=== PATIENT | male | born 1985 | race Caucasian/White ===

== ENCOUNTER 2018-01-30 02:12 | Outpatient (CLI) | payer MEDICAID, SELFPAY ==
--- NOTE | 2018-01-30 14:00 | DI.CT_ITS ---
SYMPTOMS/DIAGNOSIS: RECURRENT SINUSITIS, J32.9; FEVER, UNSPECIFIED CAUSE, R50.9 ; FACIAL PRESSURE, R68.89, RHINORRHEA, J34.[address]: Comparison is made with CT of the neck dated September,, which partially included the sinuses. Again noted is complete opacification of the left maxillary sinus. There is again noted to be absence of a right upper molar tooth with a defect in the floor of the maxillary sinus. The findings do not appear significantly changed, although the amount of swelling seen on the right side of the face has decreased. There is also marked widening or deficiency in the medial wall of the right maxillary sinus with extension of mucus into the nasal cavity. There is minimal mucus retention in the right sphenoid sinus and right ethmoid sinus. The left maxillary sinus and frontal sinuses are unremarkable. The mastoid air cells appear clear. There is no nasal septal deviation. The orbits are unremarkable. IMPRESSION: Continued complete opacification of the right maxillary sinus with extension into the right nasal cavity. There has been no change in a defect at the floor of the right maxillary sinus at the level of the right upper 1st molar tooth.
== END 2018-01-30 02:32 ==
PROVIDERS: PCP Nurse Practitioner Family; Visit Provider Physician Assistant
DX: J32.9 Chronic sinusitis, unspecified (principal); R50.9 Fever, unspecified; J34.89 Other specified disorders of nose and nasal sinuses; J01.00 Acute maxillary sinusitis, unspecified
CPT/HCPCS: 70486

== ENCOUNTER 2018-03-31 00:54 | Outpatient (CLI) | payer MEDICAID, SELFPAY ==
--- NOTE | 2018-03-31 15:14 | DI.MRI_ITS ---
SYMPTOM/DIAGNOSIS: LT SCIATICA, BACK PAIN M54.32 MRI LUMBAR SPINE: Routine noncontrast examination was performed. There are no priors available for comparison. The conus medullaris has a normal appearance and location. At L5-S1 there is no focal disc herniation, central spinal canal or neuroforaminal stenosis present. AT L4-L5 there is a small central disc herniation but no significant central spinal canal stenosis or nerve root impingement results. No neuroforaminal stenosis is seen. L3-L4, L2-L3 and L1-L2 show no focal disc herniation, central spinal canal or neuroforaminal stenosis. Marrow signal is within normal limits IMPRESSION: Small central disc herniation at L4-L5 but no central spinal canal stenosis or nerve root compression results. Otherwise, negative MRI of the lumbar spine.
== END 2018-03-31 01:14 ==
PROVIDERS: PCP Nurse Practitioner Family; Visit Provider Family Medicine
DX: M54.32 Sciatica, left side (principal); M51.16 Intervertebral disc disorders with radiculopathy, lumbar region; M54.5 Low back pain
CPT/HCPCS: 72148

== ENCOUNTER 2018-04-02 15:05 | Emergency (ER) | payer MEDICAID, SELFPAY ==
[2018-04-02 15:14] VITALS: BP 161/140; PULSE 111; RESP 18; TEMP 37; O2SAT 95
--- NOTE | 2018-04-02 15:27 | DI.MRI_ITS ---
SYMPTOM/DIAGNOSIS: KNOWN L 4 DISC HERNIATION ON RT, NOW SIGNS OF HERNIATION ON LT, LOW BACK PAIN SINCE INJURY EARLIER TODAY, INCONTINENCE SINCE INJURY, LT LEG AND ARM SYMPTOMS LUMBOSACRAL SPINE MRI: The examination was carried out according to the usual protocol. There is no evidence of spondylolisthesis. There is no paraspinal or intraosseous lesion. The lower dorsal cord, conus and filum terminale are intact. At L 1-2, there is mild facet joint arthropathy with no disc herniation or stenosis. At L 2-3, there is minimal facet joint arthropathy with no disc herniation or stenosis. At L 3-4, there is a 1 mm. disc bulge with mild facet joint arthropathy. There is minimal central spinal stenosis with an AP diameter of 10 mm. At L 4-5, there is a 2-3 mm. disc protrusion centrally, just to the right of midline. There is minimal thecal compression with minimal central stenosis (10 mm. is the AP diameter at this site). There is minimal facet joint arthropathy and no neural foraminal stenosis. At L 5-S 1, there is a 1 mm. central disc bulge with no central or neural foraminal stenosis. SUMMARY: At L 4-5, there is a 2-3 mm. disc protrusion centered just to the right of midline. There is minimal thecal compression with minimal central stenosis (10 mm. AP canal diameter). There is minimal facet joint arthropathy. No neural foraminal stenosis is evident. Additional findings as noted above.
[2018-04-02] MEDS: HYDROmorphone 2 MG/ML VIAL 1 MG IM (15:38)
--- NOTE | 2018-04-02 16:56 | DI.VRAD_ITS ---
EXAM: MR Lumbar Spine Without Intravenous Contrast. EXAM DATE/TIME: 04/02/2018 4:36 PM CLINICAL HISTORY: 32 years old, male; Pain and injury or trauma; Injury history: Lifting injury today. ; Initial encounter; Blunt trauma (contusions or hematomas); Low back pain; Injury date: 04/02/18; Injury details: Severe lumbar back pain, with pain radiating to left leg, and left arm. Incontinence since injury at 1300 today. ; Patient HX: Known l4 disk herniation. TECHNIQUE: Multiplanar magnetic resonance images of the lumbar spine without intravenous contrast. . Exam is focused on the lumbar spine. COMPARISON: MR lumbar spine wo 03/31/2018 4:19 PM FINDINGS: Vertebrae: No spondylolisthesis. The conus region appears normal. No paraspinal or intrasinus lesions are seen. Spinal cord: See Vertebrae Finding. Discs/Spinal canal/Neural foramina: L1-L2: There is mild facet arthropathy with no disc herniation or stenosis. L2-L3: There is minimal facet arthropathy with no disc herniation or stenosis. L3-L4: There is a 1 mm disc bulge with mild facet arthropathy. There is minimal central stenosis with a 10 mm AP canal diameter. L4-L5: There is a 2-3 mm disc protrusion centered just right of midline. There is minimal thecal compression with minimal central stenosis (10 mm AP canal diameter). There is minimal facet arthropathy with no neuroforaminal stenosis. L5-S1: There is a 1 mm central disc bulge with no central or neuroforaminal stenosis. Soft tissues: See Vertebrae Finding. IMPRESSION: L4-L5: There is a 2-3 mm disc protrusion centered just right of midline. There is minimal thecal compression with minimal central stenosis (10 mm AP canal diameter). There is minimal facet arthropathy with no neuroforaminal stenosis. Additional more mild and disc abnormalities as detailed on a level by level basis the report above. Dictated and Authenticated by: Rudi Diallo MD. Ordering:TANIA ABEBE MD
--- NOTE | 2018-04-02 17:08 | W.ED.GENAD ---
Discharge Plan Disposition Patient Disposition: [facility] Condition: Critical Discharge Details Chief Complaint: Nk/Back Pain Clinical Impression: Cauda equina syndrome Reason For Visit: back pain / incontinance Primary Care Provider: Kaylie Whipple ED Provider: Chris Briseno Home Meds and New Rx's Prescriptions: No Action baclofen 10 mg Tablet TID RF: 0 gabapentin 300 MG capsule 600 mg PO TID RF: 0 sucralfate 1 GM tablet 1 gm PO AC & HS Qty: 120 RF: 0 omeprazole 40 MG capsule,delayed release(DR/EC) 40 mg PO BID Qty: 60 RF: 0 Discharge Data Discharge Date/Time-TO BE ENTERED AT DEPARTURE: 04/02/18 17:26 Medical Decision Making This is a 32-year-old male with a known mild disc herniation at L4-L5, who presents with bowel and bladder incontinence, saddle anesthesia on the right, weakness in his right lower extremity, and decreased rectal tone with active micturition and defecation without him controlling. It occurred as soon as he started lifting a 2-300 pounds snowplow earlier today. Physical exam findings were concerning for cauda equina and cord compression syndrome. He was immediately sent to MRI for further evaluation, however because of the clinical component of my exam with a tight and concern for this condition we did contact [facility] immediately and discussed the case with neurosurgery and the emergency physician, Dr. Farias and Dr. Piedra respectively. We discussed and reviewed the findings on physical exam, and they recommended immediate transfer to [facility] emergency department for further evaluation. We will push the images as soon as they come through. I have extensively reviewed the treatment plan with the patient. I have addressed all patient concerns at this time. I have also discussed the plan with the admitting physician and they agree with the current assessment and plan and have agreed to assume responsibility for the patient. All parties demonstrate verbal understanding and agreement with our assessment and plan at this time. Patient will be transferred via calyx. As the patient was being wheeled out the door the imaging results for the MRI did return, which does show mild compression on the thecal sac with a disc bulge. Obviously the patient's symptoms are overly concerning, and the treatment plan will be unchanged. Patient is being sent by cal at this time to [facility]. FINDINGS: Vertebrae: No spondylolisthesis. The conus region appears normal. No paraspinal or intrasinus lesions are seen. Spinal cord: See Vertebrae Finding. Discs/Spinal canal/Neural foramina: L1-L2: There is mild facet arthropathy with no disc herniation or stenosis. L2-L3: There is minimal facet arthropathy with no disc herniation or stenosis. L3-L4: There is a 1 mm disc bulge with mild facet arthropathy. There is minimal central stenosis with a 10 mm AP canal diameter. L4-L5: There is a 2-3 mm disc protrusion centered just right of midline. There is minimal thecal compression with minimal central stenosis (10 mm AP canal diameter). There is minimal facet arthropathy with no neuroforaminal stenosis. L5-S1: There is a 1 mm central disc bulge with no central or neuroforaminal stenosis. Soft tissues: See Vertebrae Finding. IMPRESSION: L4-L5: There is a 2-3 mm disc protrusion centered just right of midline. There is minimal thecal compression with minimal central stenosis (10 mm AP canal diameter). There is minimal facet arthropathy with no neuroforaminal stenosis. Additional more mild and disc abnormalities as detailed on a level by level basis the report above. Dictated and Authenticated by: Rudi Diallo MD. HPI General Date/Time Provider Initiated Documentation: 04/02/18 15:23. HPI Narrative: This is a 32-year-old male with no significant past medical history except for back pain for which she has a known mild disc herniation at the L4-L5 region, he was scheduled for follow-up with the pain clinic, he had his most recent MRI 2 days ago which show these findings. Less than 4 hours ago the patient was trying to lift a 200-300 pound snowplow when he suddenly noted pain in his back and bowel and bladder incontinence including weakness in his right extremity as well as an inability to move his leg as he normally would. Since then the patient has had multiple episodes of bowel and bladder incontinence and came to the ER for further evaluation. States that his back pain is in the lower region, is worse than normal, he has no aggravating or relieving factors aside from movement which does cause aggravation. He denies any history of bowel or bladder incontinence in the past. He denies any history of IV or illicit drug use, recent fevers, or other traumas. He has no other complaints at this time. He denies any previous back surgeries per Related Data Home Medications Medication Instructions Recorded Confirmed gabapentin 600 mg PO TID 09/27/17 04/02/18 omeprazole 40 mg PO BID #60 capcr 10/17/17 12/08/17 sucralfate 1 gm PO AC & HS #120 tab 10/17/17 12/08/17 baclofen TID 04/02/18 Previous Rx's Medication Instructions Recorded omeprazole 40 mg PO BID #60 capcr 10/17/17 sucralfate 1 gm PO AC & HS #120 tab 10/17/17 Allergies Allergy/AdvReac Type Severity Reaction Status Date / Time No Known Allergies Allergy Unverified 04/02/18 17:08 General Stated Complaint: Nk/Back Pain FALGUNI: 2 Review of Systems Review of Systems All systems reviewed & are unremarkable except as noted in HPI and below PFSH Social History Smoking/Tobacco Use Status: Current every day Surgical History EGD - MAC (10/16/17) Exam Narrative Exam Narrative: 1.Const: Well-nourished, Well-developed, appearing stated age 2.Eyes: PERRL, no conjunctival injection, and symmetrical lids. 3.ENT: Atraumatic external nose and ears. Moist MM. Neck: Symmetric, trachea midline, No thyromegaly. 4.CVS: +S1/S2, No murmurs or gallops. Peripheral pulses 2+ and equal in all extremities. Brisk capillary refill in all extremities. 5.RESP: Unlabored respiratory effort. Clear to auscultation bilaterally. No wheezes rales or rhonchi 6.GI: Soft, Nontender/Nondistended, No hepatosplenomegaly. No guarding or rebound. 7.MSK: Normocephalic/Atraumatic, Extremities w/o deformity or ttp No cyanosis or clubbing, Normal movement of all extremities 8.Skin: Warm, Dry. No rashes or lesions. 9.Neuro: jewelry mechanic II-XII grossly intact. Sensation grossly intact, no focal neurologic deficits. Patient demonstrates midline lower lumbar spine pain. Neurologic exam demonstrates weakness in his right lower extremity, he has 3-4 out of 5 strength on the right, and a notable 5 out of 5 strength on the left. He has completely absent sensation on the saddle region on the right-hand side, there was removed from his medial thigh without any knowledge of the event. Rectal tone is notably decreased, he is actively urinating and having bowel movements in front of me in spite of his best efforts to control it. Unable to assess patellar reflexes bilaterally. Decreased sensation around the anus itself in all circumferential areas. Patient does have some mild sensation that is present on the left-hand side of his anus, and complete sensation for his left lower extremity. Upper extremity exam demonstrates no significant abnormalities. 10.Psych: (AAO) x3. Appropriate mood and affect Course Vital Signs Temperature 37.0 C 04/02/18 15:14 Pulse 111 H 04/02/18 15:14 Respiratory Rate 18 04/02/18 15:14 Blood Pressure 161/140 H 04/02/18 15:14 Pulse Oximetry 95 04/02/18 15:14 Temperature 37.0 C 04/02/18 15:14 Temperature Source Temporal Artery Scan 04/02/18 15:14 Pulse 111 H 04/02/18 15:14 Respiratory Rate 18 04/02/18 15:14 Blood Pressure 161/140 H 04/02/18 15:14 Pulse Oximetry 95 04/02/18 15:14 Oxygen Delivery Method Room Air 04/02/18 15:14 Oxygen Flow Rate 0 04/02/18 15:14
[2018-04-02] MEDS: HYDROmorphone 2 MG/ML VIAL 1 MG IVP (17:13)
--- NOTE | 2018-04-02 17:13 | ED.GENADUL_ITS ---
Discharge Plan Disposition Patient Disposition: [facility] Condition: Critical Discharge Details Chief Complaint: Nk/Back Pain Clinical Impression: Cauda equina syndrome Reason For Visit: back pain / incontinance Primary Care Provider: Kaylie Whipple ED Provider: Chris Briseno Home Meds and New Rx's Prescriptions: No Action baclofen 10 mg Tablet TID RF: 0 gabapentin 300 MG capsule 600 mg PO TID RF: 0 sucralfate 1 GM tablet 1 gm PO AC & HS Qty: 120 RF: 0 omeprazole 40 MG capsule,delayed release(DR/EC) 40 mg PO BID Qty: 60 RF: 0 Discharge Data Discharge Date/Time-TO BE ENTERED AT DEPARTURE: 04/02/18 17:26 Medical Decision Making This is a 32-year-old male with a known mild disc herniation at L4-L5 , who presents with bowel and bladder incontinence, saddle anesthesia on the right, weakness in his right lower extremity, and decreased rectal tone with active micturition and defecation without him controlling. It occurred as soon as he started lifting a 2-300 pounds snowplow earlier today. Physical exam findings were concerning for cauda equina and cord compression syndrome. He was immediately sent to MRI for further evaluation, however because of the clinical component of my exam with a tight and concern for this condition we did contact [facility] immediately and discussed the case with neurosurgery and the emergency physician, Dr. Farias and Dr. Piedra respectively. We discussed and reviewed the findings on physical exam, and they recommended immediate transfer to [facility] emergency department for further evaluation. We will push the images as soon as they come through. I have extensively reviewed the treatment plan with the patient. I have addressed all patient concerns at this time. I have also discussed the plan with the admitting physician and they agree with the current assessment and plan and have agreed to assume responsibility for the patient. All parties demonstrate verbal understanding and agreement with our assessment and plan at this time. Patient will be transferred via calyx. As the patient was being wheeled out the door the imaging results for the MRI did return, which does show mild compression on the thecal sac with a disc bulge. Obviously the patient's symptoms are overly concerning, and the treatment plan will be unchanged. Patient is being sent by cal at this time to [facility]. FINDINGS: Vertebrae: No spondylolisthesis. The conus region appears normal. No paraspinal or intrasinus lesions are seen. Spinal cord: See Vertebrae Finding. Discs/Spinal canal/Neural foramina: L1-L2: There is mild facet arthropathy with no disc herniation or stenosis. L2-L3: There is minimal facet arthropathy with no disc herniation or stenosis. L3-L4: There is a 1 mm disc bulge with mild facet arthropathy. There is minimal central stenosis with a 10 mm AP canal diameter. L4-L5: There is a 2-3 mm disc protrusion centered just right of midline. There is minimal thecal compression with minimal central stenosis (10 mm AP canal diameter). There is minimal facet arthropathy with no neuroforaminal stenosis. L5-S1: There is a 1 mm central disc bulge with no central or neuroforaminal stenosis. Soft tissues: See Vertebrae Finding. IMPRESSION: L4-L5: There is a 2-3 mm disc protrusion centered just right of midline. There is minimal thecal compression with minimal central stenosis (10 mm AP canal diameter). There is minimal facet arthropathy with no neuroforaminal stenosis. Additional more mild and disc abnormalities as detailed on a level by level basis the report above. Dictated and Authenticated by: Rudi Diallo MD. HPI General Date/Time Provider Initiated Documentation: 04/02/18 15:23 . HPI Narrative: This is a 32-year-old male with no significant past medical history except for back pain for which she has a known mild disc herniation at the L4-L5 region, he was scheduled for follow-up with the pain clinic, he had his most recent MRI 2 days ago which show these findings. Less than 4 hours ago the patient was trying to lift a 200-300 pound snowplow when he suddenly noted pain in his back and bowel and bladder incontinence including weakness in his right extremity as well as an inability to move his leg as he normally would. Since then the patient has had multiple episodes of bowel and bladder incontinence and came to the ER for further evaluation. States that his back pain is in the lower region, is worse than normal, he has no aggravating or relieving factors aside from movement which does cause aggravation. He denies any history of bowel or bladder incontinence in the past. He denies any history of IV or illicit drug use, recent fevers, or other traumas. He has no other complaints at this time. He denies any previous back surgeries per Related Data Home Medications Medication Instructions Recorded Confirmed gabapentin 600 mg PO TID 09/27/17 04/02/18 omeprazole 40 mg PO BID #60 capcr 10/17/17 12/08/17 sucralfate 1 gm PO AC & HS #120 tab 10/17/17 12/08/17 baclofen TID 04/02/18 Previous Rx's Medication Instructions Recorded omeprazole 40 mg PO BID #60 capcr 10/17/17 sucralfate 1 gm PO AC & HS #120 tab 10/17/17 Allergies Allergy/AdvReac Type Severity Reaction Status Date / Time No Known Allergies Allergy Unverified 04/02/18 17:08 General Stated Complaint: Nk/Back Pain FALGUNI: 2 Review of Systems Review of Systems All systems reviewed & are unremarkable except as noted in HPI and below PFSH Social History Smoking/Tobacco Use Status: Current every day Surgical History EGD - MAC (10/16/17) Exam Narrative Exam Narrative: 1.Const: Well-nourished, Well-developed, appearing stated age 2.Eyes: PERRL, no conjunctival injection, and symmetrical lids. 3.ENT: Atraumatic external nose and ears. Moist MM. Neck: Symmetric, trachea midline, No thyromegaly. 4.CVS: +S1/S2, No murmurs or gallops. Peripheral pulses 2+ and equal in all extremities. Brisk capillary refill in all extremities. 5.RESP: Unlabored respiratory effort. Clear to auscultation bilaterally. No wheezes rales or rhonchi 6.GI: Soft, Nontender/Nondistended, No hepatosplenomegaly. No guarding or rebound. 7.MSK: Normocephalic/Atraumatic, Extremities w/o deformity or ttp No cyanosis or clubbing, Normal movement of all extremities 8.Skin: Warm, Dry. No rashes or lesions. 9.Neuro: medical engineer II-XII grossly intact. Sensation grossly intact, no focal neurologic deficits. Patient demonstrates midline lower lumbar spine pain. Neurologic exam demonstrates weakness in his right lower extremity, he has 3-4 out of 5 strength on the right, and a notable 5 out of 5 strength on the left. He has completely absent sensation on the saddle region on the right-hand side, there was removed from his medial thigh without any knowledge of the event. Rectal tone is notably decreased, he is actively urinating and having bowel movements in front of me in spite of his best efforts to control it. Unable to assess patellar reflexes bilaterally. Decreased sensation around the anus itself in all circumferential areas. Patient does have some mild sensation that is present on the left-hand side of his anus, and complete sensation for his left lower extremity. Upper extremity exam demonstrates no significant abnormalities. 10.Psych: (AAO) x3. Appropriate mood and affect Course Vital Signs Temperature 37.0 C 04/02/18 15:14 Pulse 111 H 04/02/18 15:14 Respiratory Rate 18 04/02/18 15:14 Blood Pressure 161/140 H 04/02/18 15:14 Pulse Oximetry 95 04/02/18 15:14 Temperature 37.0 C 04/02/18 15:14 Temperature Source Temporal Artery Scan 04/02/18 15:14 Pulse 111 H 04/02/18 15:14 Respiratory Rate 18 04/02/18 15:14 Blood Pressure 161/140 H 04/02/18 15:14 Pulse Oximetry 95 04/02/18 15:14 Oxygen Delivery Method Room Air 04/02/18 15:14 Oxygen Flow Rate 0 04/02/18 15:14
[2018-04-02 17:29] VITALS: BP 158/88; PULSE 92; RESP 20; TEMP 36.8; O2SAT 98
== END 2018-04-02 17:26 | disposition short-term general hospital (02) ==
PROVIDERS: Emergency Provider Student in an Organized Health Care Education/Training Program; PCP Nurse Practitioner Family
DX: G83.4 Cauda equina syndrome (principal); R15.9 Full incontinence of feces; N39.42 Incontinence without sensory awareness; X50.0XXA Overexertion from strenuous movement or load, initial encounter
CPT/HCPCS: 80053; 96372; 96374; 99285; 72148; 85025

== ENCOUNTER 2018-05-13 08:50 | Outpatient (CLI) | payer MEDICAID, SELFPAY ==
--- NOTE | 2018-05-13 06:00 | DI.RAD_ITS ---
SYMPTOM/DIAGNOSIS: LUMBAR RADICULOPATHY PAIN CLINIC: Fluoroscopy Time: 29.2 seconds/25.29 mGy Images submitted from the Pain Clinic demonstrate needle placement over the right paramedian position at the level of L4 in conjunction with an epidural steroid injection. Please see Dr. Rainey's procedure report for further information.
[2018-05-13 09:17] VITALS: BP 149/89; PULSE 74; RESP 18; TEMP 36.6; O2SAT 99
--- NOTE | 2018-05-13 09:49 | PDOC.PAIN_ITS ---
Pain Clinic Procedure Note Current Active Problems Problem Status Onset Lumbar radicular syndrome Acute LUMBAR / SACRAL TRANSFORAMINAL INJECTION SWATHI GARCIA has been [facility] for a transforaminal nerve root block and steroid injection. COMMENTS: I reviewed the note from Ms. Magallanes dated 05/01/18 and lumbar spine MRI from 04/02/18. DX: Lumbosacral radiculopathy Patient was interviewed and the medical record reviewed. There were no medical, pharmacologic, radiographic or other structural contraindications to attempting fluoroscopically guided transforaminal nerve root block and epidural steroid injection. Risks and expected side effects as well as potential benefit of the procedure were reviewed and voiced concerns addressed. The printed consent form was signed and witnessed. Standard time-out procedure was performed. Patient was placed in the prone position on the fluoroscopy table and automated blood pressure cuff and pulse oximeter applied. Fluoroscopy was utilized to identify the left L4-L5 neural foramen between L4 and L5. A skin latisha was made for the needle insertion site. A Chlorhexadine prep was carried out, and sterile drapes were applied. Local anesthesia was achieved in the skin and subcutaneous tissues. A 22 gauge curved tip spinal needle was then inserted, advanced with fluoroscopic guidance into the neural foramen, confirmed on the lateral view. After negative aspiration, 2 ml of Omnipaque 240 was injected confirming position in A/P and lateral views. This showed a good spread of dye transforaminally into the epidural space. There was no vascular update with contrast injection under continuous fluoroscopy and digital substraction. 10 mg of Dexamethasone was injected, followed by 0.5 ml of 1% Xylocaine flush for the nerve root block, as well. There was no unusual discomfort expressed.The needle was withdrawn. The patient tolerated the procedure well. A Band-Aid was applied. Vital signs were stable throughout the procedure and were as recorded in nursing records. If given, dosages of intravenous drugs for anxiolysis and analgesia were documented in nursing records. Follow up plans and appointments were discussed. Post procedure instruction was given as documented in nursing records and patient was discharged in the care of an identified rolloff truck driver. COMMENTS: This procedure can be completed up to 3 times per 12 months if it is found helpful. Post-procedure pain score is 4/10. CC: Kaylie Whipple
[2018-05-13 09:54] VITALS: BP 157/88; PULSE 74; RESP 18; O2SAT 98
[2018-05-13] MEDS: Omnipaque 240 MG/ML 50 ML BTL IJ (09:56)
[2018-05-13] MEDS: Dexamethasone Sod. Phos./Pres-Free 10 MG/ML VIAL IJ (09:56)
== END 2018-05-13 09:10 ==
PROVIDERS: PCP Nurse Practitioner Family; Visit Provider Preventive Medicine Occupational Medicine
DX: M54.16 Radiculopathy, lumbar region (principal)
CPT/HCPCS: 64483; 72100; Q9967

== ENCOUNTER 2018-06-05 09:51 | Outpatient (REF) | payer MEDICAID, SELFPAY ==
[2018-06-05 10:14] LABS: Abs Immature Grans 0.07 k/cumm (0.0-0.09); Absolute Basophil Count 0.04 k/cumm (0.0-0.2); Absolute Eosinophil Count 0.37 k/cumm (0.0-0.7); Absolute Lymphocyte Count 3.04 k/cumm (1.2-3.4); Absolute Monocyte Count 0.93 k/cumm (0.11-0.7); Absolute Neutrophil Count 4.39 k/cumm (1.2-6.7); Basophils % 0.5; Eosinophils % 4.2; HCT 46.8 % (40.0-50.0); HGB 16.1 g/dL (13.5-17.5); Immature Grans % 0.8; Lymphocytes % 34.4; Mean Corp. HGB Concentration 34.4 g/dL (32.0-36.0); Mean Corpuscular Hemoglobin 31.8 pg (27.0-33.0); Mean Corpuscular Volume 92.3 fL (80-95); Mean Platelet Volume 10.3 fL (8.0-11.0); Monocytes % 10.5; Neutrophils % 49.6; Platelet Count 226 x1000/uL (130-400); RBC 5.07 m/cumm (4.50-6.00); RBC Distribution Width 13.5 % (11.8-14.1); White Blood Cell Count 8.84 k/cumm (4.4-10.8)
[2018-06-05 10:42] LABS: ALT 84 U/L (12-78); AST 32 U/L (15-37); Alkaline Phosphatase 71 U/L (46-116); Anion Gap 11.8 mmol/L (3-11); BUN 19 mg/dL (7-18); Bilirubin, Total 0.4 mg/dL (0.2-1.0); CO2 27.2 mmol/L (21.0-32.0); CREATININE 1.06 mg/dL (0.70-1.30); Calcium 9.8 mg/dL (8.5-10.1); Chloride 102 mmol/L (98-107); Glucose 98 mg/dL (70-100); Potassium 4.3 mmol/L (3.5-5.1); Sodium 141 mmol/L (136-145); Total Protein 7.4 g/dL (6.4-8.2)
== END 2018-06-05 10:11 ==
LOC: NCHCN 09:51
PROVIDERS: PCP Nurse Practitioner Family; Visit Provider Nurse Practitioner Family
DX: R10.31 Right lower quadrant pain (principal); R11.2 Nausea with vomiting, unspecified; R19.7 Diarrhea, unspecified; R50.9 Fever, unspecified
CPT/HCPCS: 80053; 85025

== ENCOUNTER 2018-06-05 10:38 | Outpatient (CLI) | payer MEDICAID, SELFPAY ==
--- NOTE | 2018-06-05 10:29 | DI.CT_ITS ---
SYMPTOMS/DIAGNOSIS: ABDOMINAL PAIN, RIGHT LOWER QUADRANT, NAUSEA, R10.31, R11.2, R19.7, R50.9 CT OF THE ABDOMEN AND PELVIS: Comparison is made with November,. Images were performed from the lung bases through the ischial tuberosities after IV and oral contrast. The exam is somewhat limited by the patient's body habitus. There is increased image noise due to dose reduction technique. The appendix appears normal. There is no abnormal bowel dilatation. Diverticulosis is seen in the descending and sigmoid colon. There is no evidence of inflammatory change. The lung bases are clear. The liver shows fatty infiltration. No abnormal gallbladder distention or biliary dilatation is seen. The spleen, pancreas, adrenals and kidneys are unremarkable. The bladder is not well distended. The prostate is normal in size. IMPRESSION: Diverticulosis. No evidence of diverticulitis or other acute abnormality.
[2018-06-05] MEDS: Omnipaque 350 MG/ML 50 ML BTL IJ (10:44)
[2018-06-05] MEDS: Omnipaque 350 MG/ML 100 ML BTL IJ (12:21)
== END 2018-06-05 10:58 ==
PROVIDERS: PCP Nurse Practitioner Family; Visit Provider Family Medicine
DX: K57.30 Diverticulosis of large intestine without perforation or abscess without bleeding (principal); R10.31 Right lower quadrant pain; R11.2 Nausea with vomiting, unspecified; R19.7 Diarrhea, unspecified; R50.9 Fever, unspecified
CPT/HCPCS: 74177; J3490; Q9967

== ENCOUNTER 2018-07-10 06:44 | Emergency (ER) | payer MEDICAID, SELFPAY ==
[2018-07-10] VITALS (17 sets, daily range): BP systolic 117–145; BP diastolic 48–77; PULSE 80–107; RESP 18–24; TEMP 37.4; O2SAT 79–95
--- NOTE | 2018-07-10 06:47 | DI.CT_ITS ---
SYMPTOM/DIAGNOSIS: INTOXICATED, FELL DOWN STAIRS CERVICAL SPINE CT: CT examination of the cervical spine was performed with multi slice acquisition and multi planar reconstruction. The lung apices are clear and tracheal laryngeal structures appear intact. There is no evidence of acute cervical fracture or dislocation. Prevertebral soft tissues appear intact. CONCLUSION: No evidence of acute cervical spine injury. CRANIAL CT (WITHOUT CONTRAST): A noncontrast cranial CT was performed. The ventricular system is normal in appearance. There is no evidence of an intracranial mass lesion. There is no evidence of a subdural or epidural hematoma. No focal areas of decreased attenuation are seen. CONCLUSION: Normal noncontrast Cranial CT. CHEST/ABDOMEN AND PELVIC CT: CT examination of the chest, abdomen and pelvis was performed with a bolus infusion of 100 cc's of Omnipaque 350. No bony injury of the thorax identified. No vascular injury in the thorax. No pulmonary contusion, pleural effusion or pneumothorax. Tracheobronchial tree appears intact. There is hepatic steatosis. Otherwise liver, spleen, pancreas and biliary system appear intact. Adrenals and kidneys are normal. No evidence of abdominal aortic injury or other major vascular abnormality. No abdominal wall hernia is seen. No abdominal or pelvic adenopathy. No evidence of bowel injury or bowel obstruction. Normal appearance of the appendix. No evidence of diverticulitis. CONCLUSION: No evidence of acute injury of the chest, abdomen or pelvis.
--- NOTE | 2018-07-10 06:49 | W.ED.GENAD ---
Discharge Plan Disposition Patient Disposition: HOME Condition: Stable Discharge Details Chief Complaint: AMS/LOC Clinical Impression: Acute alcohol intoxication, Fall Reason For Visit: [facility] Primary Care Provider: Kaylie Whipple ED Provider: Higinio Rawls Home Meds and New Rx's Prescriptions: No Action fluticasone [Flonase Allergy Relief] 50 mcg/actuation spray,suspension 2 spray PRISCILA DAILY RF: 0 gabapentin 300 mg capsule 600 mg PO TID RF: 0 omeprazole 40 MG capsule,delayed release(DR/EC) 40 mg PO BID Qty: 60 RF: 0 Discharge Instructions Instructions: Abuse of Alcohol (ED) Additional Instructions: if you decide you would like assistance with your [facility] Referrals: [facility] [Provider Group] Medical Decision Making <Bert Lombardi MD - Last Filed: 07/10/18 07:44> 33-year-old male states he was drinking a large amount of alcohol throughout the night last night and did take it additional Flexeril. He was trying to go to bed when he slipped and fell down 3-4 stairs. He complains of back pain. Believes he did not lose consciousness. He arrives to the ER in no acute distress but with odor of alcohol present. Tender in his posterior thoracic cage. Differential diagnosis includes bony or visceral injury. Due to his intoxication he is referred for CT imaging. As it is change of shift, patient to be signed out to Dr Rawls pending review of diagnostics. <Higinio Rawls MD - Last Filed: 07/10/18 09:06> Medical Records Medical records reviewed: Yes I reviewed the patient's medical records. Imaging Data Radiologic Study: Attestation: I personally reviewed and interpreted this imaging study as follows: Imaging: CT Scan Radiologist's impression: no acute findings on ct head, c spine, chest, abdomne and pelvis, has fatty liver Lab Data Lab results reviewed: Yes I reviewed the patient's lab results. HPI <Bert Lombardi MD - Last Filed: 07/10/18 07:44> General Mode of arrival: EMS. Date/Time Provider Initiated Documentation: 07/10/18 06:47. Limitations to Documentation: no limitations. Information obtained by: patient and EMS. History of Present Illness 33 year old M presents to the emergency department with the chief complaint of 33-year-old male who was intoxicated at home tripped and fell down 3 stairs, Quality is described as dull, and is localized to the back. Patient reports no radiation. Patient started experiencing this minute(s) and it has been constant. No relieving factors improve symptom(s), No exacerbating factors reported . Patient notes no other symptoms.. Patient did receive the following treatments prior to arrival, none Related Data Home Medications Medication Instructions Recorded Confirmed omeprazole 40 mg PO BID #60 capcr 10/17/17 07/10/18 fluticasone 50 mcg/actuation nasal 2 spray PRISCILA DAILY 04/11/18 07/10/18 spray,suspension gabapentin 300 mg capsule 600 mg PO TID cap 04/11/18 07/10/18 Previous Rx's Medication Instructions Recorded omeprazole 40 mg PO BID #60 capcr 10/17/17 Allergies Allergy/AdvReac Type Severity Reaction Status Date / Time tramadol Allergy Intermediate hives Unverified 07/10/18 06:56 General FALGUNI: 2 Review of Systems <Bert Lombardi MD - Last Filed: 07/10/18 07:44> Review of Systems 8 systems reviewed and otherwise - [facility] <Bert Lombardi MD - Last Filed: 07/10/18 07:44> Medical History Abdominal pain, right upper quadrant (Acute) Fistula (Acute) Nasal lesion (Acute) Alcohol abuse (Chronic) Chronic low back pain (Chronic) Cigarette nicotine dependence (Chronic) Crohns disease (Chronic) Depression with anxiety (Chronic) GERD (gastroesophageal reflux disease) (Chronic) Generalized anxiety disorder (Chronic) HTN (hypertension) (Chronic) Hyperlipidemia (Chronic) Left sided sciatica (Chronic) Morbid obesity (Chronic) DARREL (obstructive sleep apnea) (Chronic) Paresthesia (Chronic) Rheumatoid arthritis with rheumatoid factor of multiple sites without organ or systems involvement (Chronic) Surgical History H/O: knee surgery (Acute) S/P arthroscopy of left shoulder (Acute) Status post hip surgery (Acute) EGD - MAC (10/16/17) Social History housing: apartment lives independently: Yes (significant other helps get lower extremity dressing done.) number of children: 4 current occupational status: unemployed current occupation: [employer] what type of physical activity do you participate in: none Smoking and Tabacco status: Former Tobacco Use alcohol intake: current alcohol intake frequency: holidays/special occasions only substance use type: marijuana Exam <Bert Lombardi MD - Last Filed: 07/10/18 07:44> Narrative Exam Narrative: GEN: awake, alert, oriented 3. Pleasant, well groomed, interactive. HEAD: Normocephalic, atraumatic ENT: Mucous membranes moist, oropharynx unremarkable, External ear exam unremarkable EYES: PERRL, EOMI NECK: Full ROM, no KAREL, no menigismus CHEST/RESP: Nontender, clear to auscultation bilateral, no wheeze/rhonchi/rales CARDIOVASCULAR: RRR, no murmur, rub kiersten. 2+ Rad pulse bilateral ABDOMEN: Soft, nontender, no mass. +Bowel sounds Back: Bilateral thoracic tenderness to palpation posteriorly, no midline tenderness, step-off, or deform EXT: Full ROM, no edema, no rash Neuro: Grossly normal neurologic exam, conversant, interactive. Psych: Speech fluent, thoughts congruent, affect normal Sign Out <Bert Lombardi MD - Last Filed: 07/10/18 07:44> Sign Out Data: Sign Out Comment: Followup labs/CT Last updated by Bert Lombardi MD at 07/10/18 07:43 Post-Handoff Eval: Pt's imaging shows no acute findings per Dr. Burris, has a fatty liver from chronic alcohol abuse. His labs show alcohol of 144 and mild increased anion gap likely alcoholic ketosis. He is currently clinically sober, caox4 and has capacity to make his own decisions. He denies si/hi and also confirms this. The would like him to see [facility] here for alcohol abuse but he is declining this and given lack of psychosis, si and hi do not feel I can force him to see them. I did educate him on snf effects of alcohol/smoking and the fatty liver on CT. He will f/u if he changes his mind with [facility] and pcp and return precautions given. c spine cleared clinically
--- NOTE | 2018-07-10 06:52 | ED.GENADUL_ITS ---
Discharge Plan Disposition Patient Disposition: HOME Condition: Stable Discharge Details Chief Complaint: AMS/LOC Clinical Impression: Acute alcohol intoxication, Fall Reason For Visit: [facility] Primary Care Provider: Kaylie Whipple ED Provider: Higinio Rawls Home Meds and New Rx's Prescriptions: No Action fluticasone [Flonase Allergy Relief] 50 mcg/actuation spray,suspension 2 spray PRISCILA DAILY RF: 0 gabapentin 300 mg capsule 600 mg PO TID RF: 0 omeprazole 40 MG capsule,delayed release(DR/EC) 40 mg PO BID Qty: 60 RF: 0 Discharge Instructions Instructions: Abuse of Alcohol (ED) Additional Instructions: if you decide you would like assistance with your alcohol use contact [facility] human services Referrals: [facility] [Provider Group] Medical Decision Making <Bert Lombardi MD - Last Filed: 07/10/18 07:44> 33-year-old male states he was drinking a large amount of alcohol throughout the night last night and did take it additional Flexeril. He was trying to go to bed when he slipped and fell down 3-4 stairs. He complains of back pain. Believes he did not lose consciousness. He arrives to the ER in no acute distress but with odor of alcohol present. Tender in his posterior thoracic cage. Differential diagnosis includes bony or visceral injury. Due to his intoxication he is referred for CT imaging. As it is change of shift, patient to be signed out to Dr Rawls pending review of diagnostics. <Higinio Rawls MD - Last Filed: 07/10/18 09:06> Medical Records Medical records reviewed: Yes I reviewed the patient's medical records. Imaging Data Radiologic Study: Attestation: I personally reviewed and interpreted this imaging study as follows: Imaging: CT Scan Radiologist's impression: no acute findings on ct head, c spine, chest, abdomne and pelvis, has fatty liver Lab Data Lab results reviewed: Yes I reviewed the patient's lab results. HPI <Bert Lombardi MD - Last Filed: 07/10/18 07:44> General Mode of arrival: EMS . Date/Time Provider Initiated Documentation: 07/10/18 06:47 . Limitations to Documentation: no limitations . Information obtained by: patient and EMS . History of Present Illness 33 year old M presents to the emergency department with the chief complaint of 33-year-old male who was intoxicated at home tripped and fell down 3 stairs, Quality is described as dull, and is localized to the back. Patient reports no radiation. Patient started experiencing this minute(s) and it has been constant. No relieving factors improve symptom(s), No exacerbating factors reported . Patient notes no other symptoms.. Patient did receive the fo llowing treatments prior to arrival, none Related Data Home Medications Medication Instructions Recorded Confirmed omeprazole 40 mg PO BID #60 capcr 10/17/17 07/10/18 fluticasone 50 mcg/actuation nasal 2 spray PRISCILA DAILY 04/11/18 07/10/18 spray,suspension gabapentin 300 mg capsule 600 mg PO TID cap 04/11/18 07/10/18 Previous Rx's Medication Instructions Recorded omeprazole 40 mg PO BID #60 capcr 10/17/17 Allergies Allergy/AdvReac Type Severity Reaction Status Date / Time tramadol Allergy Intermediate hives Unverified 07/10/18 06:56 General FALGUNI: 2 Review of Systems <Bert Lombardi MD - Last Filed: 07/10/18 07:44> Review of Systems 8 systems reviewed and otherwise - [facility] <Bert Lombardi MD - Last Filed: 07/10/18 07:44> Medical History Abdominal pain, right upper quadrant (Acute) Fistula (Acute) Nasal lesion (Acute) Alcohol abuse (Chronic) Chronic low back pain (Chronic) Cigarette nicotine dependence (Chronic) Crohns disease (Chronic) Depression with anxiety (Chronic) GERD (gastroesophageal reflux disease) (Chronic) Generalized anxiety disorder (Chronic) HTN (hypertension) (Chronic) Hyperlipidemia (Chronic) Left sided sciatica (Chronic) Morbid obesity (Chronic) DARREL (obstructive sleep apnea) (Chronic) Paresthesia (Chronic) Rheumatoid arthritis with rheumatoid factor of multiple sites without organ or systems involvement (Chronic) Surgical History H/O: knee surgery (Acute) S/P arthroscopy of left shoulder (Acute) Status post hip surgery (Acute) EGD - MAC (10/16/17) Social History housing: apartment lives independently: Yes (significant other helps get lower extremity dressing done.) number of children: 4 current occupational status: unemployed current occupation: [employer] what type of physical activity do you participate in: none Smoking and Tabacco status: Former Tobacco Use alcohol intake: current alcohol intake frequency: holidays/special occasions only substance use type: marijuana Exam <Bert Lombardi MD - Last Filed: 07/10/18 07:44> Narrative Exam Narrative: GEN: awake, alert, oriented 3. Pleasant, well groomed, interactive. HEAD: Normocephalic, atraumatic ENT: Mucous membranes moist, oropharynx unremarkable, External ear exam unremarkable EYES: PERRL, EOMI NECK: Full ROM, no KAREL, no menigismus CHEST/RESP: Nontender, clear to auscultation bilateral, no wheeze/rhonchi/rales CARDIOVASCULAR: RRR, no murmur, rub kiersten. 2+ Rad pulse bilateral ABDOMEN: Soft, nontender, no mass. +Bowel sounds Back: Bilateral thoracic tenderness to palpation posteriorly, no midline tenderness, step-off, or deform EXT: Full ROM, no edema, no rash Neuro: Grossly normal neurologic exam, conversant, interactive. Psych: Speech fluent, thoughts congruent, affect normal Sign Out <Bert Lombardi MD - Last Filed: 07/10/18 07:44> Sign Out Data: Sign Out Comment: Followup labs/CT Last updated by Bert Lombardi MD at 07/10/18 07:43 Post-Handoff Eval: Pt's imaging shows no acute findings per Dr. Burris, has a fatty liver from chronic alcohol abuse. His labs show alcohol of 144 and mild increased anion gap likely alcoholic ketosis. He is currently clinically sober, caox4 and has capacity to make his own decisions. He denies si/hi and also confirms this. The would like him to see [facility] here for alcohol abuse but he is declining this and given lack of psychosis, si and hi do not feel I can force him to see them. I did educate him on snf effects of alcohol/smoking and the fatty liver on CT. He will f/u if he changes his mind with [facility] and pcp and return precautions given. c spine cleared clinically
[2018-07-10] MEDS: Normal Saline 1,000 ML 150 ML IV (07:10)
[2018-07-10 07:19] LABS: Abs Immature Grans 0.09 k/cumm (0.0-0.09); Absolute Basophil Count 0.04 k/cumm (0.0-0.2); Absolute Eosinophil Count 0.26 k/cumm (0.0-0.7); Absolute Lymphocyte Count 2.25 k/cumm (1.2-3.4); Absolute Monocyte Count 0.54 k/cumm (0.11-0.7); Absolute Neutrophil Count 5.65 k/cumm (1.2-6.7); Basophils % 0.5; Eosinophils % 2.9; HCT 44.7 % (40.0-50.0); HGB 15.6 g/dL (13.5-17.5); Lymphocytes % 25.5; Mean Corp. HGB Concentration 34.9 g/dL (32.0-36.0); Mean Corpuscular Hemoglobin 31.9 pg (27.0-33.0); Mean Corpuscular Volume 91.4 fL (80-95); Mean Platelet Volume 9.8 fL (8.0-11.0); Monocytes % 6.1; Platelet Count 196 x1000/uL (130-400); RBC 4.89 m/cumm (4.50-6.00); RBC Distribution Width 14.1 % (11.8-14.1); White Blood Cell Count 8.83 k/cumm (4.4-10.8)
[2018-07-10] MEDS: Ketorolac 30 MG/ML VIAL IVP (07:20)
[2018-07-10 07:31] LABS: ALT 58 U/L (12-78); AST 37 U/L (15-37); Albumin 3.9 g/dL (3.4-5.0); Alkaline Phosphatase 81 U/L (46-116); Anion Gap 13.8 mmol/L (3-11); BUN 10 mg/dL (7-18); Bilirubin, Total 0.3 mg/dL (0.2-1.0); CO2 25.2 mmol/L (21.0-32.0); CREATININE 1.07 mg/dL (0.70-1.30); Calcium 8.6 mg/dL (8.5-10.1); Chloride 103 mmol/L (98-107); ETHANOL BLOOD 144.3 mg/dL (<3); Glucose 98 mg/dL (70-100); Potassium 3.7 mmol/L (3.5-5.1); Sodium 142 mmol/L (136-145); Total Protein 7.9 g/dL (6.4-8.2)
--- NOTE | 2018-07-10 07:50 | PDOC.ERCMPRO ---
Care Management Progress Note 07/10-Ever's significant other Agustina is here and requested to speak with this CM. Ever is in Diagnostic Imaging having a CT scan. Met with Agustina. Agustina states that Ever had drank two fifths of alcohol, drank six beers (the last one being at 5:30 am), and took her pain medication. Agustina also states she does not know what else he took. Agustina states that Ever med seeks and will go to different hospitals and try to get what he wants. Agustina states that Ever quit working about a year ago for anxiety attacks and is disabled from that. Agustina states that she found Ever at 5:30 this morning as she was getting up for work. She states there are two children in the house, 7 year old boy and an 8 month old boy. Agustina states she can not deal with this behavior anymore because of the children. Agustina states she reached out to Ever's parents this morning and said she needed help. Agustina states, I am not lying and covering for him anymore. Agustina has asked that Ever be seen by [facility]. Explained to Agustina that this CM will discuss with Dr. Lombardi. Dr. Lombardi updated on the above.
[2018-07-10] MEDS: Omnipaque 350 MG/ML 100 ML BTL IJ (07:58)
== END 2018-07-10 09:10 | disposition home or self-care (01) ==
PROVIDERS: Emergency Medicine; Emergency Provider Emergency Medicine; PCP Nurse Practitioner Family
DX: F10.920 Alcohol use, unspecified with intoxication, uncomplicated (principal); M54.9 Dorsalgia, unspecified; W10.8XXA Fall (on) (from) other stairs and steps, initial encounter
CPT/HCPCS: 36415; 74177; 80053; 96361; 96374; 99285; 70450; 71260; 72125; 80320; 85025; 99284; J1885; J3490

== ENCOUNTER 2018-07-23 10:04 | Outpatient (REF) | payer MEDICAID, SELFPAY ==
[2018-07-23 13:20] LABS: Iron 108 ug/dL (50-175); Total Iron Binding Capacity 399 ug/dL (250-450); Transferrin Sat 27 % (20-55)
[2018-07-23 13:23] LABS: Hemoglobin A1C 5.2 % (4.5-6.2)
[2018-07-23 13:40] LABS: ALT 72 U/L (12-78); AST 33 U/L (15-37); Alkaline Phosphatase 87 U/L (46-116); Bilirubin, Total 0.5 mg/dL (0.2-1.0); Cholesterol 332 mg/dL (50-200); HDL Cholesterol 55 mg/dL (40-60); LDL CHOLESTEROL 235 mg/dL (<100); TSH 1.77 uIU/mL (0.358-3.74); Total Protein 7.4 g/dL (6.4-8.2); Triglyceride 238 mg/dL (30-150)
[2018-07-23 13:53] LABS: Bilirubin, Direct 0.09 mg/dL (0.00-0.20)
[2018-07-24 10:52] LABS: Hepatitis B Surface Ag Negative (NEGAT)
[2018-07-24 11:03] LABS: HBs Antibody, Quant 689.8 mIU/mL; Hepatitis B Surface Ab Positive; Hepatitis C Ab w Rflx HCV PCR Negative (NEGAT)
[2018-07-25 09:14] LABS: Hepatitis A IgM Ab Negative (Negative)
== END 2018-07-23 10:24 ==
LOC: NCHCN 10:04
PROVIDERS: PCP Nurse Practitioner Family; Visit Provider Nurse Practitioner Family
DX: R07.9 Chest pain, unspecified (principal); E78.5 Hyperlipidemia, unspecified; F41.8 Other specified anxiety disorders; I10 Essential (primary) hypertension; G47.00 Insomnia, unspecified; K76.0 Fatty (change of) liver, not elsewhere classified
CPT/HCPCS: 80061; 80076; 83721; 86706; 86803; 87340; 83036; 83540; 83550; 84443; 86709

== ENCOUNTER 2018-07-25 02:33 | Emergency (ER) | payer MEDICAID, SELFPAY ==
[2018-07-25 02:42] VITALS: BP 132/90; PULSE 123; RESP 20; TEMP 37.1; O2SAT 96
--- NOTE | 2018-07-25 02:59 | W.ED.GENAD ---
Discharge Plan Disposition Patient Disposition: [facility] Condition: Good Discharge Details Chief Complaint: PsychEval Clinical Impression: Acute alcohol intoxication, Depression Primary Care Provider: Kaylie Whipple ED Provider: Chris Briseno Home Meds and New Rx's Prescriptions: No Action gabapentin 300 mg capsule 600 mg PO TID RF: 0 omeprazole 40 MG capsule,delayed release(DR/EC) 40 mg PO BID Qty: 60 RF: 0 sertraline 100 mg Tablet 100 mg PO DAILY RF: 0 Discharge Data Discharge Date/Time-TO BE ENTERED AT DEPARTURE: 07/25/18 13:00 Medical Decision Making <Higinio Rawls MD - Last Filed: 07/28/18 15:11> 33 yo male with hx of gerd, depression, comes in with increasing depression and thoughts of wanting to harm himself over the past few months. He has also been drinknig alcohol heavily and using marijuana which he admits to using tonight. Has not actually tried killing himself and has no specific plan on my exam, did cut himself on the arms a few weeks ago. He is caox4, states he does feel anxious. He has no findings on exam to suggest underlying medical or infectious etiology of his symptoms. Will obtian lab work and tox screen and when sober have him speak with mental health labs unremarkable, etoh of just over 100 and urine drug screen positive for thc. Patient will be signed out to oncoming provider pending mental health eval when sober Differential Diagnosis si, substance abuse, depression Lab Data Lab results reviewed: Yes I reviewed the patient's lab results. <Chris Briseno DO - Last Filed: 07/25/18 16:33> The case was signed out to me my my colleague Dr. Emory Rawls. The patient was awaiting placement. Currently we have placement now at [facility]. I did discuss the case with China Zaragoza, the physician trigonometry teacher, she agrees with the current assessment and plan and agrees to accept the patient. Patient will be transferred by [facility]. Patient is still voluntary. Patient has been stable during his stay here. I have extensively reviewed the treatment plan with the patient. I have addressed all patient concerns at this time. I have also discussed the plan with the admitting physician and they agree with the current assessment and plan and have agreed to assume responsibility for the patient. All parties demonstrate verbal understanding and agreement with our assessment and plan at this time. HPI <Higinio Rawls MD - Last Filed: 07/28/18 15:11> General Mode of arrival: ambulatory. Date/Time Provider Initiated Documentation: 07/25/18 02:56. Limitations to Documentation: no limitations. Information obtained by: patient. History of Present Illness 33 year old M presents to the emergency department with the chief complaint of suicidal thoughts, Patient started experiencing this month(s) (2) and it has been intermittent. No relieving factors improve symptom(s), No exacerbating factors reported . Patient notes no other symptoms.. Patient did receive the following treatments prior to arrival, none Related Data Home Medications Medication Instructions Recorded Confirmed omeprazole 40 mg PO BID #60 capcr 10/17/17 07/25/18 gabapentin 300 mg capsule 600 mg PO TID cap 04/11/18 07/25/18 sertraline 100 mg PO DAILY 07/25/18 07/25/18 Previous Rx's Medication Instructions Recorded omeprazole 40 mg PO BID #60 capcr 10/17/17 Allergies Allergy/AdvReac Type Severity Reaction Status Date / Time tramadol Allergy Intermediate hives Unverified 07/25/18 02:51 General Stated Complaint: PsychEval FALGUNI: 2 Review of Systems <Higinio Rawls MD - Last Filed: 07/28/18 15:11> Review of Systems All systems reviewed & are unremarkable except as noted in HPI and below Constitutional Denies chills and Denies fever(s) Cardiovascular Denies chest pain and Denies dyspnea Respiratory Denies cough and Denies dyspnea Gastrointestinal Denies abdominal pain, Denies nausea and Denies vomiting Musculoskeletal Denies joint swelling Integumentary/Breasts Denies rash PFSH <Higinio Rawls MD - Last Filed: 07/28/18 15:11> Medical History Abdominal pain, right upper quadrant (Acute) Fistula (Acute) Nasal lesion (Acute) Alcohol abuse (Chronic) Chronic low back pain (Chronic) Cigarette nicotine dependence (Chronic) Crohns disease (Chronic) Depression with anxiety (Chronic) GERD (gastroesophageal reflux disease) (Chronic) Generalized anxiety disorder (Chronic) HTN (hypertension) (Chronic) Hyperlipidemia (Chronic) Left sided sciatica (Chronic) Morbid obesity (Chronic) DARREL (obstructive sleep apnea) (Chronic) Paresthesia (Chronic) Rheumatoid arthritis with rheumatoid factor of multiple sites without organ or systems involvement (Chronic) Surgical History H/O: knee surgery (Acute) S/P arthroscopy of left shoulder (Acute) Status post hip surgery (Acute) EGD - MAC (10/16/17) Social History housing: apartment lives independently: Yes (significant other helps get lower extremity dressing done.) number of children: 4 current occupational status: unemployed current occupation: [employer] what type of physical activity do you participate in: none Smoking and Tabacco status: Former Tobacco Use alcohol intake: current alcohol intake frequency: holidays/special occasions only substance use type: marijuana Exam <Higinio Rawls MD - Last Filed: 07/28/18 15:11> Const General: no acute distress Orientation: alert HENMT Head: normal to inspection Ears: external ears normal General nose exam: external nose normal Mouth: moist mucous membranes Eyes General: appearance normal, both eyes and all related structures Neck Neck: normal visual inspection Resp Effort & Inspection: normal respiratory effort and able to speak in complete sentences Cardio Rate: regular rate Skin General skin exam: no rashes or lesions noted Neuro General: alert and oriented x3 Extrem General: normal to inspection Psych Speech and Movement: speech and movement normal Course <Higinio Rawls MD - Last Filed: 07/28/18 15:11> Vital Signs Temperature 37.1 C 07/25/18 02:42 Pulse 123 H 07/25/18 02:42 Respiratory Rate 20 07/25/18 02:42 Blood Pressure 132/90 07/25/18 02:42 Pulse Oximetry 96 07/25/18 02:42 Temperature 37.1 C 07/25/18 02:42 Temperature Source Temporal Artery Scan 07/25/18 02:42 Pulse 123 H 07/25/18 02:42 Respiratory Rate 20 07/25/18 02:42 Respiratory Effort 07/25/18 02:42 Blood Pressure 132/90 07/25/18 02:42 Pulse Oximetry 96 07/25/18 02:42 Oxygen Delivery Method Room Air 07/25/18 02:42 Oxygen Flow Rate 0 07/25/18 02:42
--- NOTE | 2018-07-25 02:59 | NUR.NOTE ---
Nursing Note: closing supervisor states have no cpso to watch him
--- NOTE | 2018-07-25 03:00 | NUR.NOTE ---
Nursing Note: patient changed into paper scrubs per protocol. lab work ordered
--- NOTE | 2018-07-25 03:05 | ED.GENADUL_ITS ---
Discharge Plan Disposition Patient Disposition: [facility] Condition: Good Discharge Details Chief Complaint: PsychEval Clinical Impression: Acute alcohol intoxication, Depression Primary Care Provider: Kaylie Whipple ED Provider: Chris Briseno Home Meds and New Rx's Prescriptions: No Action gabapentin 300 mg capsule 600 mg PO TID RF: 0 omeprazole 40 MG capsule,delayed release(DR/EC) 40 mg PO BID Qty: 60 RF: 0 sertraline 100 mg Tablet 100 mg PO DAILY RF: 0 Discharge Data Discharge Date/Time-TO BE ENTERED AT DEPARTURE: 07/25/18 13:00 Medical Decision Making <Higinio Rawls MD - Last Filed: 07/28/18 15:11> 33 yo male with hx of gerd, depression, comes in with increasing depression and thoughts of wanting to harm himself over the past few months. He has also been drinknig alcohol heavily and using marijuana which he admits to using tonight. Has not actually tried killing himself and has no specific plan on my exam, did cut himself on the arms a few weeks ago. He is caox4, states he does feel anxious. He has no findings on exam to suggest underlying medical or infectious etiology of his symptoms. Will obtian lab work and tox screen and when sober have him speak with mental health labs unremarkable, etoh of just over 100 and urine drug screen positive for thc. Patient will be signed out to oncoming provider pending mental health eval when sober Differential Diagnosis si, substance abuse, depression Lab Data Lab results reviewed: Yes I reviewed the patient's lab results. <Chris Briseno DO - Last Filed: 07/25/18 16:33> The case was signed out to me my my colleague Dr. Emory Rawls. The patient was awaiting placement. Currently we have placement now at [facility]. I did discuss the case with China Zaragoza, the physician network communications engineer, she agrees with the current assessment and plan and agrees to accept the patient. Patient will be transferred by [facility]. Patient is still voluntary. Patient has been stable during his stay here. I have extensively reviewed the treatment plan with the patient. I have addressed all patient concerns at this time. I have also discussed the plan with the admitting physician and they agree with the current assessment and plan and have agreed to assume responsibility for the patient. All parties demonstrate verbal understanding and agreement with our assessment and plan at this time. HPI <Higinio Rawls MD - Last Filed: 07/28/18 15:11> General Mode of arrival: ambulatory . Date/Time Provider Initiated Documentation: 07/25/18 02:56 . Limitations to Documentation: no limitations . Information obtained by: patient . History of Present Illness 33 year old M presents to the emergency department with the chief complaint of suicidal thoughts, Patient started experiencing this month(s) (2) and it has been intermittent. No relieving factors improve symptom(s), No exacerbating factors reported . Patient notes no other symptoms.. Patient did receive the following treatments prior to arrival, none Related Data Home Medications Medication Instructions Recorded Confirmed omeprazole 40 mg PO BID #60 capcr 10/17/17 07/25/18 gabapentin 300 mg capsule 600 mg PO TID cap 04/11/18 07/25/18 sertraline 100 mg PO DAILY 07/25/18 07/25/18 Previous Rx's Medication Instructions Recorded omeprazole 40 mg PO BID #60 capcr 10/17/17 Allergies Allergy/AdvReac Type Severity Reaction Status Date / Time tramadol Allergy Intermediate hives Unverified 07/25/18 02:51 General Stated Complaint: PsychEval FALGUNI: 2 Review of Systems <Higinio Rawls MD - Last Filed: 07/28/18 15:11> Review of Systems All systems reviewed & are unremarkable except as noted in HPI and below Constitutional Denies chills and Denies fever(s) Cardiovascular Denies chest pain and Denies dyspnea Respiratory Denies cough and Denies dyspnea Gastrointestinal Denies abdominal pain, Denies nausea and Denies vomiting Musculoskeletal Denies joint swelling Integumentary/Breasts Denies rash PFSH <Higinio Rawls MD - Last Filed: 07/28/18 15:11> Medical History Abdominal pain, right upper quadrant (Acute) Fistula (Acute) Nasal lesion (Acute) Alcohol abuse (Chronic) Chronic low back pain (Chronic) Cigarette nicotine dependence (Chronic) Crohns disease (Chronic) Depression with anxiety (Chronic) GERD (gastroesophageal reflux disease) (Chronic) Generalized anxiety disorder (Chronic) HTN (hypertension) (Chronic) Hyperlipidemia (Chronic) Left sided sciatica (Chronic) Morbid obesity (Chronic) DARREL (obstructive sleep apnea) (Chronic) Paresthesia (Chronic) Rheumatoid arthritis with rheumatoid factor of multiple sites without organ or systems involvement (Chronic) Surgical History H/O: knee surgery (Acute) S/P arthroscopy of left shoulder (Acute) Status post hip surgery (Acute) EGD - MAC (10/16/17) Social History housing: apartment lives independently: Yes (significant other helps get lower extremity dressing done.) number of children: 4 current occupational status: unemployed current occupation: [employer] what type of physical activity do you participate in: none Smoking and Tabacco status: Former Tobacco Use alcohol intake: current alcohol intake frequency: holidays/special occasions only substance use type: marijuana Exam <Higinio Rawls MD - Last Filed: 07/28/18 15:11> Const General: no acute distress Orientation: alert HENMT Head: normal to inspection Ears: external ears normal General nose exam: external nose normal Mouth: moist mucous membranes Eyes General: appearance normal, both eyes and all related structures Neck Neck: normal visual inspection Resp Effort & Inspection: normal respiratory effort and able to speak in complete sentences Cardio Rate: regular rate Skin General skin exam: no rashes or lesions noted Neuro General: alert and oriented x3 Extrem General: normal to inspection Psych Speech and Movement: speech and movement normal Course <Higinio Rawls MD - Last Filed: 07/28/18 15:11> Vital Signs Temperature 37.1 C 07/25/18 02:42 Pulse 123 H 07/25/18 02:42 Respiratory Rate 20 07/25/18 02:42 Blood Pressure 132/90 07/25/18 02:42 Pulse Oximetry 96 07/25/18 02:42 Temperature 37.1 C 07/25/18 02:42 Temperature Source Temporal Artery Scan 07/25/18 02:42 Pulse 123 H 07/25/18 02:42 Respiratory Rate 20 07/25/18 02:42 Respiratory Effort 07/25/18 02:42 Blood Pressure 132/90 07/25/18 02:42 Pulse Oximetry 96 07/25/18 02:42 Oxygen Delivery Method Room Air 07/25/18 02:42 Oxygen Flow Rate 0 07/25/18 02:42
[2018-07-25] MEDS: LORazepam 1 MG TAB PO ×2 (03:10→10:17)
[2018-07-25 03:13] LABS: *AMPHETAMINES SCREEN URINE Negative (Negative); *BARBITURATES SCREEN URINE Negative (Negative); *BENZODIAZEPINES SCREEN URINE Negative (Negative); Cannabinoids THC POSITIVE (Negative); Cocaine Screen,Urine Negative (Negative); METHADONE URINE SCREEN Negative (Negative); OPIATES URINE SCREEN Negative (Negative)
[2018-07-25 03:14] LABS: Tricyclic Antidepressants Negative (Negative)
[2018-07-25 03:44] LABS: Abs Immature Grans 0.09 k/cumm (0.0-0.09); Absolute Basophil Count 0.06 k/cumm (0.0-0.2); Absolute Lymphocyte Count 2.68 k/cumm (1.2-3.4); Absolute Neutrophil Count 6.14 k/cumm (1.2-6.7); Basophils % 0.6; Eosinophils % 3.9; HCT 44.1 % (40.0-50.0); HGB 15.4 g/dL (13.5-17.5); Immature Grans % 0.9; Lymphocytes % 26.4; Mean Corp. HGB Concentration 34.9 g/dL (32.0-36.0); Mean Corpuscular Hemoglobin 32.4 pg (27.0-33.0); Mean Corpuscular Volume 92.6 fL (80-95); Mean Platelet Volume 10.1 fL (8.0-11.0); Monocytes % 7.9; Neutrophils % 60.3; Platelet Count 217 x1000/uL (130-400); RBC 4.76 m/cumm (4.50-6.00); RBC Distribution Width 14.3 % (11.8-14.1); White Blood Cell Count 10.17 k/cumm (4.4-10.8)
[2018-07-25 04:06] LABS: ALT 69 U/L (12-78); AST 40 U/L (15-37); Albumin 3.8 g/dL (3.4-5.0); Alkaline Phosphatase 81 U/L (46-116); Anion Gap 10.3 mmol/L (3-11); BUN 12 mg/dL (7-18); Bilirubin, Total 0.2 mg/dL (0.2-1.0); CO2 26.7 mmol/L (21.0-32.0); CREATININE 0.87 mg/dL (0.70-1.30); Calcium 8.9 mg/dL (8.5-10.1); Chloride 102 mmol/L (98-107); ETHANOL BLOOD 103.8 mg/dL (<3); Glucose 98 mg/dL (70-100); Potassium 3.8 mmol/L (3.5-5.1); Sodium 139 mmol/L (136-145); Total Protein 7.5 g/dL (6.4-8.2)
[2018-07-25 04:13] LABS: Salicylate 3.5 mg/dL (2.8-20.0); TSH (W/Ref FT4) 1.76 uIU/mL (0.358-3.74)
[2018-07-25 04:20] LABS: Acetaminophen < 2 ug/mL (10-30)
--- NOTE | 2018-07-25 04:34 | NUR.NOTE ---
Nursing Note: This RN has been sitting 1:1 observation with patient since 314
--- NOTE | 2018-07-25 07:16 | PDOC.ERCMPRO ---
Care Management Progress Note 07/25-Ever presented to the Emergency Department (with his ) for alcohol intoxication, depression, and suicidal ideation with no plan. Ever has a history of alcohol abuse and was seen in the emergency department last month for the same issue. Patient has now been medically cleared by Dr. Rawls and mental health has been called. Dr. Rawls had ordered a CPSO that is with the patient. A quick huddle with Dr. Rawls to formulate a care plan until Mental Health screening is complete. If Ever is cleared for discharge home by Mental Health, will recommend a recovery specialist to come see patient before discharge from ED. This CM will hold another huddle once patient has been screened by [facility]NA. Eevr Knight Voluntary Care Plan 07/25/18 Safety plan has been established with patient, and care team, to adhere to patient goals, identify restrictions based on behavioral status, address nutrition, and determine allowed personal belongings, tools for hygiene and personal care. Determine level of activity including ambulation, level of supervision, visitors, and determine privileges based on behaviors and level of engagement by pt. SAFETY PLAN: 1. Will remain on suicide precautions. In Paper Clothes 2. Will remain in room under direct supervision of one-on-one staff at all times provided by CPSO; EMT EMERGENCY SERVICE RESTORER, SENIOR INFORMATION SECURITY ANALYST retail product advisor. 3. May have paper cups, plates, finger foods as well as a metal spoon with which to eat meals. [facility] staff will be responsible for accounting of utensils after meals. 4. Follow [facility] Management of the Admitted Behavioral Health Patient policy. 5. Comfort bath system only. 6. Patient may have his CPAP machine, no other personal belongings 7. Visitors: and two children may visit 8. May have activities from the mental health activity cart in Emergency Department. May have television if available. 9. Bathroom privileges. 10. Phone to call only at this time. 11. Due to VOLUNTARY status, if patient wishes to leave [facility], the [facility] particleboard factory worker must be contacted to re-evaluate patient prior to patient exiting the building. Patient is currently voluntarily at [facility]. [facility] Frontline Conveyor Mechanic will continue seeking placement. Please contact the Associate Genetics Professor Logging Supervisor ([phone]) and [facility] Conveyor Mechanic ([phone]) for any needed changes in the Safety Plan. Safety plan has been provided to interdepartmental care team including Clinical Coordinator, Nursing Transformation Manager.
--- NOTE | 2018-07-25 07:23 | CMPROGNOTE_ITS ---
Care Management Progress Note 07/25-Ever presented to the Emergency Department (with his ) for alcohol intoxication, depression, and suicidal ideation with no plan. Ever has a history of alcohol abuse and was seen in the emergency department last month for the same issue. Patient has now been medically cleared by Dr. Rawls and mental health has been called. Dr. Rawls had ordered a CPSO that is with the patient. A quick huddle with Dr. Rawls to formulate a care plan until Mental Health screening is complete. If Ever is cleared for discharge home by Mental Health, will recommend a online health and fitness coach to come see patient before discharge from ED. This CM will hold another huddle once patient has been screened by ANA. Ever Knight Voluntary Care Plan 07/25/18 Safety plan has been established with patient, and care team, to adhere to patient goals, identify restrictions based on behavioral status, address nutrit ion, and determine allowed personal belongings, tools for hygiene and personal care. Determine level of activity including ambulation, level of supervision, visitors, and determine privileges based on behaviors and level of engagement by pt. SAFETY PLAN: 1. Will remain on suicide precautions. In Paper Clothes 2. Will remain in room under direct supervision of one-on-one staff at all times provided by CPSO; EMT HUB BORER, HAND LENS POLISHER single needle tufting machine operator. 3. May have paper cups, plates, finger foods as well as a metal spoon with which to eat meals. [facility] staff will be responsible for accounting of utensils after meals. 4. Follow [facility] Management of the Admitted Behavioral Health Patient policy. 5. Comfort bath system only. 6. Patient may have his CPAP machine, no other personal belongings 7. Visitors: and two children may visit 8. May have activities from the mental health activity cart in Emergency Department. May have television if available. 9. Bathroom privileges. 10. Phone to call only at this time. 11. Due to VOLUNTARY status, if patient wishes to leave [facility], the [facility] direct support worker must be contacted to re-evaluate patient prior to patient exiting the building. Patient is currently voluntarily at [facility]. [facility] Frontline Hydraulic Pile Hammer Operator will continue seeking placement. Please contact the Statement Services Representative Cheese Cook ([phone]) and [facility] Hydraulic Pile Hammer Operator ([phone]) for any needed changes in the Safety Plan. Safety plan has been provided to interdepartmental care team including Clinical Coordinator, Nursing [employer] Former.
[2018-07-25] MEDS: Acetaminophen 500 MG TAB 1000 MG PO (09:41)
[2018-07-25] MEDS: Sertraline 50 MG TAB 100 MG PO (14:12)
[2018-07-25] MEDS: Gabapentin 300 MG CAP 600 MG PO (14:12)
[2018-07-25 17:56] VITALS: BP 132/90; PULSE 123; RESP 20; TEMP 37.1; O2SAT 96
--- NOTE | 2018-07-26 10:55 | PDOC.MHCN ---
Date of service: 07/25/18 Time of Service: 08:00 Mental Health Crisis Note Presenting Issue How did you arrive at the ED and why did you come: Ever arrived to the ED last night after his girlfriend brought him in while under the influence and he was at the time having SI. When I first arrived he was asleep in bed using his CPAP machine and startled when awoke. Precipitating Factors Ever is not SI at this time but states that he wants help. He has struggled with heavy drinking on and off for 5-6 years he reported. He reported that his SI thoughts have also been intensified in the past several months and he does not have any plan or intent I don't think I would ever act on it. Ever reported that he has struggled with depression for many years and said his anxiety started about 2-3 months ago with no identifiable triggers. Disposition BEHAVIOR: Cooperative and engaged. EYE CONTACT: Good eye contact. MOOD: Frustrated with himself but otherwise normal. AFFECT: flat APPETITE: unknown SLEEP(trouble falling/staying asleep: Good Plan Ever is interested in a detox program and is willing to go [facility] but [facility] at this time due to a previous placement there this past Summer. Also, discussed availability of psychiatry offered through his PCP office once detoxed and stable to address his depression and anxiety. Provisional Diagnosis anxiety d.o. unspecified depressive d.o. unspecified. Signature Clinician's Name/Title: Mini Leal MS, [facility] [place] Emergency Services Clinician
--- NOTE | 2018-07-26 11:47 | PDOC.MHCN_ITS ---
Date of service: 07/25/18 Time of Service: 08:00 Mental Health Crisis Note Presenting Issue How did you arrive at the ED and why did you come: Ever arrived to the ED last night after his girlfriend brought him in while under the influence and he was at the time having SI. When I first arrived he was asleep in bed using his CPAP machine and startled when awoke. Precipitating Factors Ever is not SI at this time but states that he wants help. He has struggled with heavy drinking on and off for 5-6 years he reported. He reported that his SI thoughts have also been intensified in the past several months and he does not have any plan or intent I don't think I would ever act on it. Ever reported that he has struggled with depression for many years and said his anxiety started about 2-3 months ago with no identifiable triggers. Disposition BEHAVIOR: Cooperative and engaged. EYE CONTACT: Good eye contact. MOOD: Frustrated with himself but otherwise normal. AFFECT: flat APPETITE: unknown SLEEP(trouble falling/staying asleep: Good Plan Ever is interested in a detox program and is willing to [facility] but [facility] [place] at this time due to a previous placement there this past Summer. Also, discussed availability of psychiatry offered through his PCP office once detoxed and stable to address his depression and anxiety. Provisional Diagnosis anxiety d.o. unspecified depressive d.o. unspecified. Signature Clinician's Name/Title: Mini Leal MS, [facility] Emergency Services Clinician
== END 2018-07-25 13:00 | disposition short-term general hospital (02) ==
PROVIDERS: Emergency Medicine; Emergency Provider Student in an Organized Health Care Education/Training Program; PCP Nurse Practitioner Family
DX: F10.120 Alcohol abuse with intoxication, uncomplicated (principal); F41.8 Other specified anxiety disorders; R45.851 Suicidal ideations
CPT/HCPCS: 36415; 80053; 80307; 99285; 80320; 80329; 84443; 85025; 99284

== ENCOUNTER 2018-07-31 09:55 | Emergency (ER) | payer MEDICAID, SELFPAY ==
[2018-07-31 10:04] VITALS: BP 197/95; PULSE 87; RESP 16; TEMP 37.4; O2SAT 97
--- NOTE | 2018-07-31 10:34 | DI.RAD_ITS ---
SYMPTOMS/DIAGNOSIS: DORSAL PAIN AND SWELLING AFTER CAUGHT IN CHAIN LEFT HAND: Three views. No bone or joint is identified. No radiopaque foreign bodies are seen in the soft tissues. There does appear to be soft tissue swelling of the hand and wrist. IMPRESSION: No acute fracture or dislocation.
--- NOTE | 2018-07-31 10:36 | W.ED.GENAD ---
Discharge Plan Disposition Patient Disposition: HOME Condition: Stable Discharge Details Chief Complaint: Orthopedic Clinical Impression: Injury of left median nerve Primary Care Provider: Kaylie Whipple ED Provider: Bert Lombardi Home Meds and New Rx's Prescriptions: Continued gabapentin 300 mg capsule 600 mg PO TID RF: 0 omeprazole 40 MG capsule,delayed release(DR/EC) 40 mg PO BID Qty: 60 RF: 0 sertraline 100 mg Tablet 100 mg PO DAILY RF: 0 Discharge Instructions Additional Instructions: You are being discharged to same day surgery. Please go directly there. They will place your IV. Nothing more to eat or drink at this time Medical Decision Making 33-year-old male who had his left wrist and hand caught in a chain while working to log with his father yesterday. States he was dragged a few feet before tension was eased and he was able to remove the chain. Overnight he developed dull, achy, moderate swelling with associated tingling in the fingertips of the index long and ring fingers L hand. He arrives hypertensive but with history of same, otherwise normal vital signs. Exam reveals diffuse swelling and tenderness of the right hand dorsal greater than volar aspects, motor that is intact but diminished in palmar abduction of the left thumb, & decreased sensation in the distribution of the median nerve. Patient referred for x-ray which does not reveal underlying bony injury. I was concerned for the possibility of compartment syndrome and Dr. Prakash was consulted, evaluating the patient at the bedside. Patient to be discharged to outpatient surgery for median nerve decompression. HPI General Mode of arrival: ambulatory. Date/Time Provider Initiated Documentation: 07/31/18 09:58. Limitations to Documentation: no limitations. Information obtained by: patient. History of Present Illness 33 year old M presents to the emergency department with the chief complaint of Left hand injury yesterday, caught in chain, described as moderate, Quality is described as aching, dull and constant, and is localized to the left and upper extremity. Patient proximal. Patient started experiencing this day(s) and it has been constant. Rest improves symptom(s), Movement worsens symptoms . Patient notes other (Numbness and tingling of index long and ring finger). Patient did receive the following treatments prior to arrival, NSAID Related Data Home Medications Medication Instructions Recorded Confirmed omeprazole 40 mg PO BID #60 capcr 10/17/17 07/31/18 gabapentin 300 mg capsule 600 mg PO TID cap 04/11/18 07/31/18 sertraline 100 mg PO DAILY 07/25/18 07/31/18 Previous Rx's Medication Instructions Recorded omeprazole 40 mg PO BID #60 capcr 10/17/17 Allergies Allergy/AdvReac Type Severity Reaction Status Date / Time tramadol Allergy Intermediate hives Unverified 07/31/18 10:08 General Stated Complaint: Orthopedic FALGUNI: 4 Review of Systems Review of Systems Denies other injury. 6 systems reviewed and otherwise negative [facility] Medical History Abdominal pain, right upper quadrant (Acute) Fistula (Acute) Nasal lesion (Acute) Alcohol abuse (Chronic) Chronic low back pain (Chronic) Cigarette nicotine dependence (Chronic) Crohns disease (Chronic) Depression with anxiety (Chronic) GERD (gastroesophageal reflux disease) (Chronic) Generalized anxiety disorder (Chronic) HTN (hypertension) (Chronic) Hyperlipidemia (Chronic) Left sided sciatica (Chronic) Morbid obesity (Chronic) DARREL (obstructive sleep apnea) (Chronic) Paresthesia (Chronic) Rheumatoid arthritis with rheumatoid factor of multiple sites without organ or systems involvement (Chronic) Surgical History H/O: knee surgery (Acute) S/P arthroscopy of left shoulder (Acute) Status post hip surgery (Acute) EGD - MAC (10/16/17) Social History housing: apartment lives independently: Yes (significant other helps get lower extremity dressing done.) number of children: 4 current occupational status: unemployed current occupation: [employer] what type of physical activity do you participate in: none Smoking and Tabacco status: Former Tobacco Use alcohol intake: current alcohol intake frequency: holidays/special occasions only substance use type: marijuana Exam Narrative Exam Narrative: GEN: awake, alert, oriented 3. Pleasant, well groomed, interactive. HEAD: Normocephalic, atraumatic ENT: Mucous membranes moist, oropharynx unremarkable, External ear exam unremarkable EYES: PERRL, EOMI NECK: Full ROM, no KAREL, no menigismus CHEST/RESP: Nontender, no respiratory distress EXT: Full ROM, the Left hand is edematous on the dorsum and tender throughout. Sensation is diminished in the index and long finger and radial half of ring finger left hand. Weakness 4/5 L thumb palmar abduction. Capillary refill approximately 2 secs Neuro: Grossly normal neurologic exam, conversant, interactive. Psych: Speech fluent, thoughts congruent, affect normal Course Vital Signs Temperature 37.4 C 07/31/18 10:04 Pulse 87 07/31/18 10:04 Respiratory Rate 16 07/31/18 10:04 Blood Pressure 197/95 H 07/31/18 10:04 Pulse Oximetry 97 07/31/18 10:04 Temperature 37.4 C 07/31/18 10:04 Pulse 87 07/31/18 10:04 Respiratory Rate 16 07/31/18 10:04 Respiratory Effort Non-Labored 07/31/18 10:08 Blood Pressure 197/95 H 07/31/18 10:04 Blood Pressure Position Sitting 07/31/18 10:04 Pulse Oximetry 97 07/31/18 10:04 Oxygen Delivery Method Room Air 07/31/18 10:04 Oxygen Flow Rate 0 07/31/18 10:04 Pain Level 7 07/31/18 10:07
--- NOTE | 2018-07-31 15:36 | OCONE_ITS ---
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 His hand was underneath the chain in his father tight in the chain with a tractor prior to him removing and time. Had immediate pain and swelling. He washed it last night and continued to get worse. He noted some swelling to the dorsum of the hand and increasing numbness to the index, middle finger, and radial side of the ring finger. To a lesser extent, he had numbness of the thumb. He also reported some dysesthesias to the little finger but nothing as dense as the other digits described. He had difficulties making a fist especially with weakness of the thumb. He denies having any break in the skin. He does report having some baseline numbness and tingling in both hands, worse with sleeping and with activities. He has sought no treatment for that. Assessment and Plan (1) Acute carpal tunnel syndrome of left wrist: Current visit: Yes Status: Acute Ever is a 33-year-old who has concerning findings for acute carpal tunnel syndrome. His wrist is still compressible so I do not think there is any active compression on the nerve but I am concerned about his worsening exam and the dense numbness over the median nerve distribution. I discussed treatment options with Ever and at this point I would recommend that we perform an open carpal tunnel release. The benefit of this would be to remove any pressure that could be pushing on the nerve and also make sure it is evaluated in hole and there is no injury to the nerve. I was very honest with a click that is very is possible that the surgery does not provide any immediate benefit and that this will take time to heal. However, the concerning finding is the worsening symptoms and the dense numbness. I reviewed the risk of the procedure to include bleeding, infection, pain, stiffness, continued numbness. Despite these risks and elects to proceed. He is n.p.o. and we will do this later today. Review of Systems Review of Systems All systems reviewed & are unremarkable except as noted in HPI and below [facility] Medical History Abdominal pain, right upper quadrant (Acute) Fistula (Acute) Nasal lesion (Acute) Alcohol abuse (Chronic) Chronic low back pain (Chronic) Cigarette nicotine dependence (Chronic) Crohns disease (Chronic) Depression with anxiety (Chronic) GERD (gastroesophageal reflux disease) (Chronic) Generalized anxiety disorder (Chronic) HTN (hypertension) (Chronic) Hyperlipidemia (Chronic) Left sided sciatica (Chronic) Morbid obesity (Chronic) DARREL (obstructive sleep apnea) (Chronic) Paresthesia (Chronic) Rheumatoid arthritis with rheumatoid factor of multiple sites without organ or systems involvement (Chronic) Surgical History H/O: knee surgery (Acute) S/P arthroscopy of left shoulder (Acute) Status post hip surgery (Acute) EGD - MAC (10/16/17) Social History housing: apartment lives independently: Yes (significant other helps get lower extremity dressing done.) number of children: 4 current occupational status: unemployed current occupation: [employer] what type of physical activity do you participate in: none Smoking and Tabacco status: Current-Occasional alcohol intake: current alcohol intake frequency: holidays/special occasions only substance use type: marijuana Exam Narrative Exam Narrative: No acute distress. Alert and oriented x3. Sitting upright on the exam table. Evaluation of the left hand shows some fullness to the hand through the mid palm as well as the dorsum of the hand. The hand and wrist are compressible. There is some ecchymosis and fullness of the dorsum of the wrist. There is a palpable radial pulse. Fingertips are warm and well perfused with capillary refill less than 2 seconds. There is pain to palpation along the transverse carpal ligament and the wrist flexion crease. He is able to extend and flex the wrist but it does seem to cause pain. He is very resistant in flexing and adducting the thumb. There is no malpositioning of the fingers at rest. He is able to flex and extend all digits with intact FDP and FDS for all 5 digits. No significant decreased sensation in radial nerve distribution. He has no perception of light touch to the index and middle finger and the radial side of the ring finger. He has some very mild sensation intact over the palmar aspect of the thumb. He also reports some decreased sensation of the little finger and the ulnar aspect of the ring finger. Results Last Vital Signs Temp 37.4 C 07/31/18 10:04 Pulse 87 07/31/18 10:04 Resp 16 07/31/18 10:04 BP 197/95 H 07/31/18 10:04 Pulse Ox 97 07/31/18 10:04 Imaging Imaging Studies: X-ray of the left wrist shows no fracture. No dislocation.
== END 2018-07-31 11:42 | disposition home or self-care (01) ==
PROVIDERS: Emergency Provider Emergency Medicine; PCP Nurse Practitioner Family
DX: G56.12 Other lesions of median nerve, left upper limb (principal); I10 Essential (primary) hypertension
CPT/HCPCS: 99253; 99283; 73130; 99282

== ENCOUNTER 2018-07-31 12:28 | Day surgery (SDC) | payer MEDICAID, SELFPAY ==
[2018-07-31] VITALS (9 sets, daily range): BP systolic 150–231; BP diastolic 70–95; PULSE 84–119; RESP 11–22; TEMP 36.1–37.1; O2SAT 91–96
[2018-07-31] MEDS: Lactated Ringers 1,000 ML 80 ML IV (13:00)
--- NOTE | 2018-07-31 13:15 | W.PREOPHP ---
Date of service: 07/31/18 Assessment and Plan (1) Acute carpal tunnel syndrome of left wrist: Start date: 07/30/18 Current visit: Yes Status: Acute Open carpal tunnel release. Details of surgery were discussed with patient as well as risks and pertinent anatomy. All questions were answered History of Present Illness Chief Complaint: Left Wrist Injury Narrative: Ever is a 33 year old male who comes in today for a preop for a LEFT carpal tunnel release. Yesterday he had an injury to his left wrist in which his wrist got caught in between a chain and a log, and was simultaneously pulled causing a crushing type injury to his left wrist. Since this injury, Pertinent Surgical Information Patient denies history of hypertension, CVA, OR, angina, asthma, COPD, renal or liver disorders, hepatitis, bleeding disorders, diabetes, immune or thyroid disorders. No complications from anesthesia. Review of Systems Constitutional Denies fever(s) ENT Denies dizziness and Denies sore throat Cardiovascular Denies chest pain, Denies palpitations and Denies dyspnea Respiratory Denies cough and Denies dyspnea Gastrointestinal Denies abdominal pain, Denies melena, Denies hematochezia, Denies diarrhea, Denies nausea and Denies vomiting Genitourinary Denies hematuria and Denies dysuria Neurologic Denies dizziness Endocrine Denies palpitations [facility] Social History housing: apartment lives independently: Yes (significant other helps get lower extremity dressing done.) number of children: 4 current occupational status: unemployed current occupation: [employer] what type of physical activity do you participate in: none Smoking and Tabacco status: Former Tobacco Use alcohol intake: current alcohol intake frequency: holidays/special occasions only substance use type: marijuana Meds Home Medications Medication Instructions Recorded Confirmed Type omeprazole 40 mg PO BID #60 capcr 10/17/17 07/31/18 Rx gabapentin 300 mg capsule 600 mg PO TID cap 04/11/18 07/31/18 History sertraline 100 mg PO DAILY 07/25/18 07/31/18 History atenolol 25 mg PO DAILY 07/31/18 07/31/18 History Allergies Allergy/AdvReac Type Severity Reaction Status Date / Time tramadol Allergy Intermediate hives Unverified 07/31/18 13:18 Exam HENMT Head: normocephalic and atraumatic General nose exam: no nasal discharge Throat: uvula midline and no uvular edema Other: soft palate rises symmetrically, no erythema Resp Effort & Inspection: normal respiratory effort Auscultation: clear to auscultation bilaterally and no wheezes Cardio Rate: regular rate Rhythm: regular rhythm Heart Sounds: S1 normal, S2 normal and no murmurs Results Last Vital Signs Temp 36.4 C L 07/31/18 12:57 Pulse 88 07/31/18 12:57 Resp 20 07/31/18 12:57 BP 151/75 H 07/31/18 12:57 Pulse Ox 96 07/31/18 12:57
--- NOTE | 2018-07-31 13:19 | HPE_ITS ---
Addendum entered and electronically signed by ARELIS Cross 07/31/18 13:40: 1. Error in Pertinent Surgical Info: He is positive for HTN. 2. HPI was not finished: Since this injury he has had persistent numbness in his left hand. He went to the emergency room where he was evaluated and determined not to have any fracture of the wrist, but does have acute carpal tunnel syndrome of the left wrist due to this recent trauma. Dr. Prakash was notified, and plans to do an open carpal tunnel release as soon as possible to relieve the pressure from the nerve. Patient agrees with this plan and is anxious to proceed. Original Note: Date of service: 07/31/18 Assessment and Plan (1) Acute carpal tunnel syndrome of left wrist: Start date: 07/30/18 Current visit: Yes Status: Acute Open carpal tunnel release. Details of surgery were discussed with patient as well as risks and pertinent anatomy. All questions were answered History of Present Illness Chief Complaint: Left Wrist Injury Narrative: Ever is a 33 year old male who comes in today for a preop for a LEFT carpal tunnel release. Yesterday he had an injury to his left wrist in which his wrist got caught in between a chain and a log, and was simultaneously pulled causing a crushing type injury to his left wrist. Since this injury, Pertinent Surgical Information Patient denies history of hypertension, CVA, PR, angina, asthma, COPD, renal or liver disorders, hepatitis, bleeding disorders, diabetes, immune or thyroid disorders. No complications from anesthesia. Review of Systems Constitutional Denies fever(s) ENT Denies dizziness and Denies sore throat Cardiovascular Denies chest pain, Denies palpitations and Denies dyspnea Respiratory Denies cough and Denies dyspnea Gastrointestinal Denies abdominal pain, Denies melena, Denies hematochezia, Denies diarrhea, Denies nausea and Denies vomiting Genitourinary Denies hematuria and Denies dysuria Neurologic Denies dizziness Endocrine Denies palpitations [facility] Social History housing: apartment lives independently: Yes (significant other helps get lower extremity dressing done.) number of children: 4 current occupational status: unemployed current occupation: [employer] what type of physical activity do you participate in: none Smoking and Tabacco status: Former Tobacco Use alcohol intake: current alcohol intake frequency: holidays/special occasions only substance use type: marijuana Meds Home Medications Medication Instructions Recorded Confirmed Type omeprazole 40 mg PO BID #60 capcr 10/17/17 07/31/18 Rx gabapentin 300 mg capsule 600 mg PO TID cap 04/11/18 07/31/18 History sertraline 100 mg PO DAILY 07/25/18 07/31/18 History atenolol 25 mg PO DAILY 07/31/18 07/31/18 History Allergies Allergy/AdvReac Type Severity Reaction Status Date / Time tramadol Allergy Intermediate hives Unverified 07/31/18 13:18 Exam HENSC Head: normocephalic and atraumatic General nose exam: no nasal discharge Throat: uvula midline and no uvular edema Other: soft palate rises symmetrically, no erythema Resp Effort & Inspection: normal respiratory effort Auscultation: clear to auscultation bilaterally and no wheezes Cardio Rate: regular rate Rhythm: regular rhythm Heart Sounds: S1 normal, S2 normal and no murmurs Results Last Vital Signs Temp 36.4 C L 07/31/18 12:57 Pulse 88 07/31/18 12:57 Resp 20 07/31/18 12:57 BP 151/75 H 07/31/18 12:57 Pulse Ox 96 07/31/18 12:57
[2018-07-31] MEDS: Lidocaine 2% Multi-Dose 50 ML VIAL (14:38)
[2018-07-31] MEDS: fentaNYL 100 MCG/2 ML VIAL IVP ×2 (15:15→15:52)
[2018-07-31] MEDS: Ketorolac 30 MG/ML VIAL IVP (15:20)
[2018-07-31] MEDS: LORazepam 2 MG/ML VIAL 1 MG IVP ×2 (15:32→16:00)
--- NOTE | 2018-07-31 15:48 | W.PM.DSUDISC ---
Discharge Plan Disposition Patient Disposition: HOME Condition: Good Discharge Details Reason For Visit: ACUTE CARPAL TUNNEL SYNDROME (R) Attending Provider: Nestor Prakash Primary Care Provider: Kaylie Whipple Home Meds and New Rx's Prescriptions: New acetaminophen 500 mg tablet 1,000 mg PO Q8H PRN (Reason: pain) Qty: 90 RF: 3 ibuprofen 600 mg tablet 600 mg PO TID PRNQty: 90 RF: 3 oxycodone 5 mg tablet 5 mg PO Q4H Qty: 6 RF: 0 Continued atenolol 25 mg Tablet 25 mg PO DAILY RF: 0 gabapentin 300 mg capsule 200 mg PO TID RF: 0 omeprazole 40 MG capsule,delayed release(DR/EC) 40 mg PO BID Qty: 60 RF: 0 sertraline 100 mg Tablet 100 mg PO DAILY RF: 0 Discharge Instructions Additional Instructions: Activity: You should keep the hand/wrist elevated as much as possible for the first few days. You may use the other fingers as tolerated but avoid trying to do too much too soon. You may perform light activities with the splint in place. Dressing/Cast: Your splint should stay in place at all times. Do NOT get it wet. You may loosen the LEON wrap if you feel it is too tight and then rewrap more loosely. Medications: - You should take Tylenol and Ibuprofen for baseline pain control. - You may apply ice over the wrist, just double bag so it doesn't get wet. Follow-up: 7 days Referrals: Nestor Prakash MD [ [facility]] - Equipment/Supplies: Splint Activity:: Elevate Remove Dressings/Wound Care:: Do Not Remove Shower/Bathe:: Cover Diet:: As Tolerated Discharge Orders Discharge Orders: Discharge Order (Routine); Ordered 07/31/18 Ordered By: Nestor Prakash DS: Diagnosis Discharge Diagnosis (1) Acute carpal tunnel syndrome of left wrist: Status: Acute
[2018-07-31] MEDS: oxyCODONE 5 MG TAB PO (16:47)
--- NOTE | 2018-08-01 08:26 | ROE_ITS ---
REPORT OF OPERATIVE PROCEDURE DATE OF SURGERY July 31, 2018 PREOPERATIVE DIAGNOSIS Acute carpal tunnel syndrome of the left hand. POSTOPERATIVE DIAGNOSIS Acute carpal tunnel syndrome of the left hand. SURGERY Open carpal tunnel release of the left hand. SURGEON Nestor Prakash M.D. HONING MACHINE [employer]Y OUT SETTER Lida Grace PA-C FINDINGS There was swelling throughout the hand and within the carpal tunnel itself, but there was no damage t o the median nerve, nor was there any significant active bleeding or mass effect appreciated. The car pal tunnel was released fully extending into the antebrachial fascia. ANESTHESIA General. ESTIMATED BLOOD LOSS 10 cc. COMPLICATIONS None. DISPOSITION The patient was awakened from anesthesia and taken to the PACU in stable condition. INDICATION FOR PROCEDURE Ever is a 33-year-old who I saw in the Emergency Department for the concern of acute compartment s yndrome. 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 He was placing a chain around a log when the chain tightened inadvertently while his hand was still underneath it, between it and the lo g. The pressure was released and he has significant pain and swelling. He continued to watch it overn ight and by the following morning, he had increasing numbness to the index and middle finger primaril y, but also the thumb and the radial border of the ring finger. He had no appreciable sensation to li ght touch over the median nerve distribution, except for a slight amount over the palmar thumb. These symptoms seem to be worsening and he was complaining of pain at the level of the wrist, extending dave th proximally and distally. Given this constellation of findings, I was concerned for acute carpal tu nnel syndrome. To relieve the pressure on the carpal tunnel and also to make sure there was no press ure and the nerve is intact, I offered operative release. I reviewed the risks of the procedure, to i nclude bleeding, infection, pain, stiffness, damage to nerves and vessels, damage to muscles and tend ons, persistent numbness, scalene issues. Despite these risks, he would elected to proceed. PROCEDURE DESCRIPTION Ever was greeted in the preoperative holding area. His identity was confirmed and the correct side was identified and marked. The consent was reviewed with the patient and signed. The history and phy sical was performed earlier in the day. He was then taken back to the Operating Room and placed in the supine position. All bony prominences were well padded. A general anesthetic was administered. The left arm was placed onto the hand table. A nonsterile tourniquet was placed high up on the left arm, where it was used and stayed for 12 rishabh ezekiel. The left arm was prepped with ChloraPrep and draped in a standard fashion. Prophylactic antibiot ics in the form of cefazolin 3 grams were administered. A timeout was performed for safe surgery. An extended carpal tunnel approach was then made to the left hand. This consisted of a linear incisio n along the radial border of the fourth ray with Selina incision across the wrist flexion crease, ex tending to the ulnar side of the palmaris longus tendon. The incision was taken down sharply through the skin. Deeper dissection was proceeded carefully making sure to identify any possible branches of the palmar cutaneous nerve. Skin flaps were minimally elevated to expose the transverse carpal ligame nt and the palmar fascia. A small entrance into the carpal tunnel was performed and a freer was place d underneath the transverse carpal ligament. This was used to protect it against the median nerve and the transverse carpal ligament was released entirely. There were no significant abnormalities seen here. The transverse carpal ligament was released to its distal extent, to the point that it was free enough to place a finger deep. The median nerve was visualized and did not show any signs of hyperem ia or apparent damage. There was some fullness to the carpal tunnel, as the nerves seem to really pus h forward when the ligament was released, but again, no apparent mass effect from any underlying soft tissue structure or bleeding. The incision was then carried more proximally as the distal band of the forearm fascia was quite tigh t overlying the median nerve. This was released for about 4 centimeters proximal of the wrist flexion crease. The nerve was again inspected and it did not show any signs of discrete damage. The wound w as then thoroughly irrigated. The tourniquet was released. There was no excessive bleeding. The woun d was then closed with #4-0 Nylon. The wound bed was anesthetized with 1% lidocaine and 0.5% bupivaca ine. The wound was dressed with Xeroform, 4x4s, Webril and a volar resting splint. At the end of the case, all counts were correct. He was transferred to the PACU in stable condition.
== END 2018-07-31 17:12 | disposition home or self-care (01) ==
PROVIDERS: PCP Nurse Practitioner Family; Visit Provider Student in an Organized Health Care Education/Training Program
PROC: (CPT 64721; principal; 2018-07-31 13:30)
DX: S67.32XA Crushing injury of left wrist, initial encounter (principal); G56.02 Carpal tunnel syndrome, left upper limb; W23.0XXA Caught, crushed, jammed, or pinched between moving objects, initial encounter
CPT/HCPCS: 64721; J0690; J1100; J1885; J2060; J2250; J2405; J3010; L3650

== ENCOUNTER 2018-08-13 00:35 | Outpatient (CLI) | payer MEDICAID, SELFPAY ==
--- NOTE | 2018-08-13 14:00 | ETT_ITS ---
*[facility]* *[facility]* [address] [place] [address] Stress Electrocardiography Saul protocol Date of study: 08/13/2018 *PATIENT PRESENTATION* Height: 185.4cm (73in) Blood Pressure: Weight: 157.3kg (346lb) BSA: 2.92m^2 Referring physician: Kaylie Whipple Ordering physician: Kaylie Whipple Impressions: Negative stress test after maximal exercise with reproduction of symptoms. Summary: 1. Stress ECG conclusions: The stress ECG is negative. Lawton treadmill score: 0. This score predicts a moderate risk of cardiac events. 2. Stress: The target heart rate was achieved. The heart rate response to stress is normal. There is resting hypertension with a hypertensive response to stress. The patient experienced no chest pain during stress. Exercise capacity is normal for age. Exercise capacity is moderately diminished for age, gender, and diagnosis. 3. Treadmill exercise testing was performed using the Sual protocol. The patient exercised for 8 min 13 sec, to protocol stage 3, to a maximal work rate of 10.2mets. Exercise was terminated due to chest pain and fatigue. Recommendations: 1. Exercise stress myocardial perfusion imaging should be performed for further risk stratification. This procedure has been arranged and discussed with the patient. 2. Intensify blood pressure control. Indication: R07.9, Appropriate Use Criteria: A (Appropriate). History: REASON FOR TESTING: TEN WEEKS AGO PATIENT NOTED GETTING MORE SOB BOTH AT REST AND WITH CLIMBING A FLIGHT OF STAIRS. ON 06/27/18 PATIENT PASSED OUT CLIMBING A WALKING UP A FLIGHT OF STAIRS AND WAS BROUGHT TO THE ER. FOR THE PAST 6 WEEKS PATIENT REPORTS HAVING DAILY MIDSTERAL UNCOMFORTABLE TIGHTNESS (2/10) AND SHARP TEARING SENSATION (8/10) AT REST. PATIENT DENIES CHEST PAIN/PRESSURE UPON ARRIVAL TO TESTING TODAY. SIGNIFICANT PAST MEDICAL HISTORY: PATIENT'S BROTHER AT AGE 29 OF AN ND. GERD. SMOKING STATUS: CURRENT SMOKER. SMOKED FOR 10 YEAR 1 PPD. EXERCISE ROUTINE: DAILY ADL'S. Risk factors: Family history of coronary artery disease. Hypertension. Obesity. Dyslipidemia. Cholesterol: 332mg/dl. HDL: 55mg/dl. LDL: 235mg/dl. Triglycerides: 238mg/dl. ALLERGIES: TRAMADOL. MEDICATIONS: OMEPRZOLE 40 MG DAILY, GABAPENTIN 300 MG TID, SERTRALINE 100 MG DAILY, ATENOLOL 25 MG DAILY, ATORVASTATIN 40 MG DAILY. Protocol: Saul protocol. Baseline ECG: SINUS RHYTHM. 79 BPM. Normal ECG. Stress protocol: + +---+ + !Stage !HR !BP (mmHg) ! + +---+ + !Baseline supine !79 !160/70 (100)! + +---+ + !Baseline standing !100!170/74 (106)! + +---+ + !Stage I; 1.7mph, 10degrees; 3 min !141!200/86 (124)! + +---+ + !Stage II; 2.5mph, 12degrees; 3 min!169!210/80 (123)! + +---+ + !Recovery; 1 min !140!260/80 (140)! + +---+ + !Recovery; 3 min !111!238/68 (125)! + +---+ + !Recovery; 6 min !104!198/86 (123)! + +---+ + !Recovery; 9 min !103!190/84 (119)! + +---+ + !Recovery; 12 min !111!190/80 (117)! + +---+ + !Recovery; 18 min !108!174/84 (114)! + +---+ + * Stress results: STRESS TEST ENDED IN 8 MINUTES 13 SECONDS DUE TO CHEST PAIN AND FATIGUE. HYPERTENSIVE BLOOD PRESSURE AT BASELINE. HYPERTENSIVE BLOOD PRESSURE RESPONSE TO EXERCISE. NORMAL HEART RATE RESPONSE TO EXERCISE. HEART RATE SLOW TO RETURN TO BASELINE. MAX HEART RATE: 190. 100 % OF TARGET HEART RATE ACHIEVED. MET'S: 10.16. RARE PVCs. CHEST HEAVYNESS AND DULL (6/10) CHEST PAIN DURING STAGE 3 OF EXERCISE. MID STERNAL CHEST PAIN WITH RADIATION TO LEFT CHEST NOW SHARPER IN INTENSITY NOTED AT 1 MINUTE RECOVERY. MID STERNAL BURNING (5/10) CHEST DISCOMFORT WITH SHARP TEARING (4/10) CHEST PAIN AT 3 MINUTES RECOVERY. CHEST PAIN SYMPTOMS SUBSIDED AT 8 MINUTES RECOVERY. PAIN BETWEEN SHOULDER BLADES (6/10) AT 8 MINUTES RECOVERY. PAIN BETWEEN SHOULDER BLADES SUBSIDED AT 25 MIN[address] RECOVERY. NO SIGNIFICANT ST SEGMENT CHANGES. FUNCTIONAL CAPACITY: MODERATELY DIMINISHED. DR. BALDERAS UPDATED REGARDING ABOVE STRESS TEST FINDINGS. PLAN IS FOR PATIENT TO RETURN FOR A NUCLEAR STRESS TEST PER DR. BALDERAS'S RECOMMENDATIONS. INFORMED PATIENT OF PLANS FOR FOLLOW UP NUCLEAR STRESS TEST AND INSTRUCTED PATIENT TO GO TO THE ER IF HAVING CHEST PAIN/PRESSURE RETURNS. Maximal heart rate during stress was 190bpm (101% of maximal predicted heart rate). The maximal predicted heart rate was 189bpm. The target heart rate was achieved. The heart rate response to stress is normal. There is resting hypertension with a hypertensive response to stress. The rate-pressure product for the peak heart rate and blood pressure was 20993kh Hg/min. The patient experienced no chest pain during stress. Exercise capacity is normal for age. Exercise capacity is moderately diminished for age, gender, and diagnosis. Stress ECG: The stress ECG is negative. Lawton treadmill score: 0. This score predicts a moderate risk of cardiac events. Study data: Miguel A Balderas MD supervised and was readily available during the procedure. This study was interpreted by [facility]. Study status: Routine. Consent: The risks, benefits, and alternatives to the procedure were explained to the patient and informed consent was obtained. Procedure: Initial setup. A baseline ECG was recorded. Surface ECG leads and manual cuff blood pressure measurements were monitored. Heart sounds: Normal. Lung sounds: Normal. Treadmill exercise testing was performed using the Saul protocol. The patient exercised for 8 min 13 sec, to protocol stage 3, to a maximal work rate of 10.2mets. Exercise was terminated due to chest pain and fatigue. Study completion: The patient tolerated the procedure well and was discharged from the lab. Discharge: The patient left the laboratory in stable condition. Birthdate: Patient birthdate: 1985. Sex: Gender: male. Study date: Study date: 08/13/2018. Study time: 00:01 AM. Signature Documentation: The Stress ECG portion of this study was interpreted by Miguel A Balderas MD. Electronically signed by Miguel A Balderas 08/14/2018 07:34
== END 2018-08-13 00:55 ==
PROVIDERS: PCP Nurse Practitioner Family; Visit Provider Nurse Practitioner Family
DX: R07.89 Other chest pain (principal); R06.02 Shortness of breath; F17.200 Nicotine dependence, unspecified, uncomplicated; I10 Essential (primary) hypertension; E78.5 Hyperlipidemia, unspecified; Z82.49 Family history of ischemic heart disease and other diseases of the circulatory system
CPT/HCPCS: 93017

== ENCOUNTER 2018-10-12 17:11 | Emergency (ER) | payer MEDICAID, SELFPAY ==
[2018-10-12] VITALS (29 sets, daily range): BP systolic 114–154; BP diastolic 53–75; PULSE 65–98; RESP 13–37; TEMP 36.5; O2SAT 94–100
--- NOTE | 2018-10-12 17:39 | DI.RAD_ITS ---
SYMPTOMS/DIAGNOSIS: CHEST PAIN, ? ACUTE DISEASE PA AND LATERAL CHEST: Comparison is made with September,. The cardiac and mediastinal contours have a normal appearance. The lungs are well inflated and clear. No infiltrate, effusion or pneumothorax is seen. IMPRESSION: Negative chest x-ray.
[2018-10-12 17:56] LABS: Abs Immature Grans 0.01 k/cumm (0.0-0.09); Absolute Basophil Count 0.04 k/cumm (0.0-0.2); Absolute Eosinophil Count 0.21 k/cumm (0.0-0.7); Absolute Lymphocyte Count 2.61 k/cumm (1.2-3.4); Absolute Monocyte Count 0.59 k/cumm (0.11-0.7); Absolute Neutrophil Count 3.01 k/cumm (1.2-6.7); Basophils % 0.6; Eosinophils % 3.2; HCT 43.4 % (40.0-50.0); HGB 15.3 g/dL (13.5-17.5); Immature Grans % 0.2; Lymphocytes % 40.3; Mean Corp. HGB Concentration 35.3 g/dL (32.0-36.0); Mean Corpuscular Hemoglobin 31.9 pg (27.0-33.0); Mean Corpuscular Volume 90.6 fL (80-95); Monocytes % 9.1; Neutrophils % 46.6; Platelet Count 233 x1000/uL (130-400); RBC 4.79 m/cumm (4.50-6.00); RBC Distribution Width 12.8 % (11.8-14.1); White Blood Cell Count 6.47 k/cumm (4.4-10.8)
[2018-10-12 18:07] LABS: ALT 61 U/L (12-78); AST 26 U/L (15-37); Alkaline Phosphatase 80 U/L (46-116); Anion Gap 11.6 mmol/L (3-11); BUN 7 mg/dL (7-18); Bilirubin, Total 0.5 mg/dL (0.2-1.0); CO2 25.4 mmol/L (21.0-32.0); CREATININE 0.95 mg/dL (0.70-1.30); Calcium 9.4 mg/dL (8.5-10.1); Chloride 103 mmol/L (98-107); Glucose 88 mg/dL (70-100); Sodium 140 mmol/L (136-145); Total Protein 7.3 g/dL (6.4-8.2); Troponin I < 0.02 ng/mL (0.00-0.06)
--- NOTE | 2018-10-12 18:13 | ED.GENADUL_ITS ---
Discharge Plan Disposition Patient Disposition: HOME Condition: Stable Discharge Details Chief Complaint: Chest Pain Clinical Impression: Chronic chest pain, Chronic shortness of breath, Generalized weakness Primary Care Provider: Kaylie Whipple ED Provider: Jazzmine Little Home Meds and New Rx's Prescriptions: Continued oxycodone 5 mg tablet 5 mg PO Q4H MDD 30mg Qty: 12 RF: 0 atenolol 25 mg Tablet 25 mg PO DAILY RF: 0 acetaminophen 500 mg tablet 1,000 mg PO Q8H PRN (Reason: pain) Qty: 90 RF: 3 ibuprofen 600 mg tablet 600 mg PO TID PRNQty: 90 RF: 3 gabapentin 300 mg capsule 900 mg PO TID RF: 0 duloxetine [Cymbalta] 30 mg Capsule,Delayed Release(Dr/Ec) 90 mg PO DAILY RF: 0 omeprazole 40 MG capsule,delayed release(DR/EC) 40 mg PO DAILY RF: 0 Discharge Instructions Instructions: Chest Pain (ED), Chronic Pain (ED), Weakness (ED), Dyspnea (ED) Additional Instructions: You will receive a call from care management regarding follow-up for your nuclear stress test as an outpatient. Take your regular medications as directed. Call your primary care doctor tomorrow morning to schedule follow-up appointment for reevaluation. Return immediately to the emergency department with any worsening or new concerning symptoms. Discharge Data Discharge Date/Time-TO BE ENTERED AT DEPARTURE: 10/12/18 21:02 Discharge Physician: Jazzmine Little Medical Decision Making 33-year-old male with a history of hypertension morbid obesity, hyperlipidemia, GERD who presents with chronic chest pain for the last 8 months, worse since yesterday morning. Patient had an exercise stress test on August 13 which was read as negative but he was referred for nuclear stress test due to chest pain and fatigue with exercise and hypertension during exercise stress test. Patient also admits to persistent hypertension, and states his blood pressure is often greater than 180-210/90-120. BP on arrival 154/72. Remainder vitals within normal limits. Patient appears comfortable and texting on phone. EKG notes a rate of 77 and sinus with no acute ST findings. As patient's chest pain has been chronic for months, with recent negative stress test, cardiac work-up ordered and may be appropriate for second troponin and discharge if negative. PERC negative and does not appear clinically consistent with PE based on chronic symptoms and no DVT/PE risk factors and setting of normal vital signs. Dr. Balderas's note from August 13 states that patient's nuclear stress test has been arranged but patient states he has been having difficulty with arranging this due to authorization/insurance issues. 2044 --delay in disposition due to critical patient in the ED. Labs and imaging reviewed and unremarkable. Normal electrolytes. Troponin negative. Chest x-ray negative. Patient states he is feeling much better and requesting to go home. Discussed with patient that although his symptoms have been chronic for several months, as he has had worsening chest pain since yesterday morning, can check a repeat troponin and EKG but he is declining this at this time. Patient was offered admission for his continued intermittent chest pain but he is refusing and would rather go home at this time. He is hemodynamically stable. Blood pressure is significantly improved 114/78. Will place patient on care management list to help arrange for his outpatient nuclear stress test. Patient is instructed to call his primary care doctor tomorrow morning to [facility] follow-up appointment for reevaluation and return here immediately if worse. Medical Records Medical records reviewed: Yes I reviewed the patient's medical records. Imaging Data Radiologic Study: Radiologist's impression: XR Chest, 2 Views EXAM DATE/TIME: 10/12/2018 5:39 PM CLINICAL HISTORY: 33 years old, male; Dizzy, light headed, SOB, chest pain; Prior surgery TECHNIQUE: Imaging protocol: XR of the chest, 2 views. COMPARISON: CR CHEST 2 VIEWS PA,LAT 09/27/2017 7:54 PM FINDINGS: Lungs: Unremarkable. No consolidation. Pleural space: Unremarkable. No pleural effusion. No pneumothorax. Heart/Mediastinum: Unremarkable. No cardiomegaly. Bones/joints: Unremarkable. IMPRESSION: No active pulmonary disease. No acute changes compared to 09/27/2017. Lab Data Lab results reviewed: Yes I reviewed the patient's lab results. ECG Data Attestation: I personally reviewed and interpreted this ECG (s) as follows: Interpretation: Rate of 77, sinus, no acute ST elevation or depression. QTc 419. QRS 88 HPI General Mode of arrival: ambulatory . Date/Time Provider Initiated Documentation: 10/12/18 17:22 . Limitations to Documentation: no limitations . Information obtained by: patient . HPI Narrative: Patient is a 33-year-old male with a history of hypertension, sleep apnea, morbid obesity who presents with chronic chest pain for the past 6 months, worse since yesterday morning. He describes his chest pain as a chest heaviness and pressure that makes him feel like he cannot take a deep breath. He states his symptoms improve with rest and worsened with exertion. He admits to nausea but denies any vomiting. He admits to intermittent dizziness. He also admits to hypertension and states that his blood pressure is often 180-210/90-120. Patient states he had a recent stress test a few months ago and was referred for a nuclear stress test but states he did not obtain this yet. Patient states he takes his atenolol regularly. Patient states he smokes half pack of cigarettes daily. Patient denies any recent travel, leg pain or swelling. Related Data Home Medications Medication Instructions Recorded Confirmed gabapentin 300 mg capsule 900 mg PO TID cap 04/11/18 10/12/18 acetaminophen 1,000 mg PO Q8H PRN #90 tab 07/31/18 10/12/18 atenolol 25 mg PO DAILY 07/31/18 10/12/18 ibuprofen 600 mg PO TID PRN #90 tab 07/31/18 10/12/18 oxycodone 5 mg tablet 5 mg PO Q4H #12 tab MDD 30mg 08/01/18 10/12/18 duloxetine [Cymbalta] 90 mg PO DAILY 10/12/18 10/12/18 omeprazole 40 mg PO DAILY 10/12/18 10/12/18 Previous Rx's Medication Instructions Recorded acetaminophen 1,000 mg PO Q8H PRN #90 tab 07/31/18 ibuprofen 600 mg PO TID PRN #90 tab 07/31/18 oxycodone 5 mg tablet 5 mg PO Q4H #12 tab MDD 30mg 08/01/18 Allergies Allergy/AdvReac Type Severity Reaction Status Date / Time tramadol Allergy Intermediate hives Unverified 10/12/18 17:27 General Stated Complaint: Chest Pain FALGUNI: 2 Review of Systems Review of Systems All systems reviewed & are unremarkable except as noted in HPI and below Constitutional Reports as per HPI, Denies chills, Denies fever(s) and Reports weakness Eyes Denies blurry vision ENT Denies dizziness, Denies sore throat and Denies throat swelling Cardiovascular Reports chest pain and Reports dyspnea Respiratory Denies cough and Reports dyspnea Gastrointestinal Denies abdominal pain, Denies diarrhea and Denies vomiting Genitourinary Denies hematuria and Denies dysuria Musculoskeletal Denies back pain and Denies numbness Integumentary/Breasts Denies lesions and Denies rash Neurologic Denies dizziness, Denies focal weakness, Denies numbness and Reports weakness Allergic/Immunologic Denies throat swelling [facility] Medical History Abdominal pain, right upper quadrant (Acute) Fistula (Acute) Nasal lesion (Acute) Alcohol abuse (Chronic) Chronic low back pain (Chronic) Cigarette nicotine dependence (Chronic) Crohns disease (Chronic) Depression with anxiety (Chronic) GERD (gastroesophageal reflux disease) (Chronic) Generalized anxiety disorder (Chronic) HTN (hypertension) (Chronic) Hyperlipidemia (Chronic) Left sided sciatica (Chronic) Morbid obesity (Chronic) DARREL (obstructive sleep apnea) (Chronic) Paresthesia (Chronic) Rheumatoid arthritis with rheumatoid factor of multiple sites without organ or systems involvement (Chronic) Surgical History H/O: knee surgery (Acute) S/P arthroscopy of left shoulder (Acute) Status post hip surgery (Acute) EGD - MAC (10/16/17) Social History Smoking/Tobacco Use Status: Current-Occasional Tobacco Type: cigarettes Smoking cigarettes per day: 10 Alcohol Intake: former Drug use: Occasionally Substance use type: marijuana Housing: apartment Number of Children: 4 current occupation: [employer] What type of physical activity do you participate in: none Do you feel safe in your relationship?: Yes Exam Const General: cooperative, healthy appearing and no acute distress HENMT Head: normal to inspection Face and sinus: normal facial exam Eyes General: appearance normal, both eyes and all related structures EOM: EOM intact bilaterally Neck Neck: normal visual inspection and No submandibular swelling Lymphatic: no lymphadenopathy noted Chest Chest: normal inspection of the chest and no tenderness Resp Effort & Inspection: normal respiratory effort and able to speak in complete sentences Auscultation: clear to auscultation bilaterally Cardio Rate: regular rate Rhythm: regular rhythm GI Inspection: normal to inspection Palpation: soft, not firm, not rigid and nontender Auscultation: normal bowel sounds Male General Exam: Yes normal external exam Skin General skin exam: no rashes or lesions noted Neuro General: alert, awake and oriented x3 Cognition: normal cognition Speech: speech normal Motor: muscle tone normal throughout Sensory Exam: no sensory deficits noted Extrem General: normal to inspection, full ROM and no edema Psych Appearance: grossly normal Mental Status: mental status grossly normal Speech and Movement: speech and movement normal Affect: normal affect Course Vital Signs Temperature 97.7 F 10/12/18 17:24 Pulse 85 10/12/18 17:24 Respiratory Rate 16 10/12/18 17:24 Blood Pressure 154/72 H 10/12/18 17:24 Pulse Oximetry 99 10/12/18 17:24 Temperature 97.7 F 10/12/18 17:24 Temperature Source Skin 10/12/18 17:24 Pulse 85 10/12/18 17:24 Respiratory Rate 16 10/12/18 17:24 Respiratory Effort Non-Labored 10/12/18 17:24 Blood Pressure 154/72 H 10/12/18 17:24 Blood Pressure Position Sitting 10/12/18 17:24 Pulse Oximetry 99 10/12/18 17:24 Oxygen Delivery Method Room Air 10/12/18 17:24 Oxygen Flow Rate 0 10/12/18 17:24 Pain Level 3 10/12/18 17:24 Lab/Test Results Lab/Test Results: Laboratory Tests Range/Units 10/12/18 10/12/18 17:40 17:40 WBC (4.4-10.8) k/cumm 6.47 RBC (4.50-6.00) m/cumm 4.79 Hgb (13.5-17.5) g/dL 15.3 Hct (40.0-50.0) % 43.4 MCV (80-95) fL 90.6 MCH (27.0-33.0) pg 31.9 MCHC (32.0-36.0) g/dL 35.3 RDW (11.8-14.1) % 12.8 Plt Count (130-400) x1000/uL 233 MPV (8.0-11.0) fL 10.0 Immature Gran % 0.2 Neutrophils % 46.6 Lymphocytes % 40.3 Monocytes % 9.1 Eosinophils % 3.2 Basophils % 0.6 Absolute Neutrophils (1.2-6.7) k/cumm 3.01 Absolute Lymphocytes (1.2-3.4) k/cumm 2.61 Absolute Monocytes (0.11-0.7) k/cumm 0.59 Absolute Eosinophils (0.0-0.7) k/cumm 0.21 Absolute Basophils (0.0-0.2) k/cumm 0.04 Sodium (136-145) mmol/L 140 Potassium (3.5-5.1) mmol/L 4.0 Chloride (98-107) mmol/L 103 Carbon Dioxide (21.0-32.0) mmol/L 25.4 Anion Gap (3-11) mmol/L 11.6 H BUN (7-18) mg/dL 7 Creatinine (0.70-1.30) mg/dL 0.95 Estimated GFR/1.73 m2 (mL/min/1.73m2) >= 60.00 Glucose (70-100) mg/dL 88 Calcium (8.5-10.1) mg/dL 9.4 Magnesium (1.8-2.4) mg/dL 2.0 Total Bilirubin (0.2-1.0) mg/dL 0.5 AST (15-37) U/L 26 ALT (12-78) U/L 61 Alkaline Phosphatase (46-116) U/L 80 Troponin I (0.00-0.06) ng/mL < 0.02 Total Protein (6.4-8.2) g/dL 7.3 Albumin (3.4-5.0) g/dL 4.0
--- NOTE | 2018-10-12 19:01 | DI.VRAD_ITS ---
EXAM: XR Chest, 2 Views EXAM DATE/TIME: 10/12/2018 5:39 PM CLINICAL HISTORY: 33 years old, male; Dizzy, light headed, SOB, chest pain; Prior surgery TECHNIQUE: Imaging protocol: XR of the chest, 2 views. COMPARISON: CR CHEST 2 VIEWS PA,LAT 09/27/2017 7:54 PM FINDINGS: Lungs: Unremarkable. No consolidation. Pleural space: Unremarkable. No pleural effusion. No pneumothorax. Heart/Mediastinum: Unremarkable. No cardiomegaly. Bones/joints: Unremarkable. IMPRESSION: No active pulmonary disease. No acute changes compared to 09/27/2017. Dictated and Authenticated by: Farshad Barnes MD. Ordering:THADDEUS Dover MD
--- NOTE | 2018-10-13 07:51 | CMPROGNOTE_ITS ---
Care Management Progress Note 10/13-Dr. Little requested assistance with a nuclear stress test (ED unable to schedule). Kaylie Whipple is PCP. Referral requesting f/u and ordering of stress test faxed to [facility] this am.
== END 2018-10-12 21:02 | disposition home or self-care (01) ==
PROVIDERS: Emergency Provider Physician Assistant; PCP Nurse Practitioner Family
DX: R07.9 Chest pain, unspecified (principal); G89.29 Other chronic pain; R06.02 Shortness of breath; R53.1 Weakness; I10 Essential (primary) hypertension
CPT/HCPCS: 36415; 80053; 93005; 99285; 71046; 83735; 84484; 85025; 93010

== ENCOUNTER 2018-10-16 09:35 | Outpatient (REF) | payer MEDICAID, SELFPAY ==
[2018-10-16 21:11] LABS: Cholesterol 283 mg/dL (50-200); HDL Cholesterol 37 mg/dL (40-60); LDL CHOLESTEROL 193 mg/dL (<100); Triglyceride 170 mg/dL (30-150)
== END 2018-10-16 09:55 ==
LOC: NCHCN 09:35
PROVIDERS: PCP Nurse Practitioner Family; Visit Provider Nurse Practitioner Family
DX: F10.10 Alcohol abuse, uncomplicated (principal); I10 Essential (primary) hypertension; R07.9 Chest pain, unspecified
CPT/HCPCS: 80061; 83721

== ENCOUNTER 2018-10-16 15:12 | Emergency (ER) | payer MEDICAID, SELFPAY ==
[2018-10-16] VITALS (53 sets, daily range): BP systolic 113–139; BP diastolic 47–73; PULSE 63–99; RESP 12–26; TEMP 36.6; O2SAT 94–100
--- NOTE | 2018-10-16 15:34 | W.ED.GENAD ---
Discharge Plan Disposition Patient Disposition: HOME Condition: Stable Discharge Details Chief Complaint: Chest Pain Clinical Impression: Chest pain Primary Care Provider: Kaylie Whipple ED Provider: Higinio Rawls Home Meds and New Rx's Prescriptions: No Action oxycodone 5 mg tablet 5 mg PO Q4H MDD 30mg Qty: 12 RF: 0 atenolol 25 mg Tablet 25 mg PO DAILY RF: 0 acetaminophen 500 mg tablet 1,000 mg PO Q8H PRN (Reason: pain) Qty: 90 RF: 3 ibuprofen 600 mg tablet 600 mg PO TID PRNQty: 90 RF: 3 gabapentin 300 mg capsule 900 mg PO TID RF: 0 duloxetine [Cymbalta] 30 mg Capsule,Delayed Release(Dr/Ec) 90 mg PO DAILY RF: 0 omeprazole 40 MG capsule,delayed release(DR/EC) 40 mg PO DAILY RF: 0 Medical Decision Making 33 yo male with hx of gerd, anxiety, prior alcohol abuse sober for over 60 days per pt who comes in with chief complaint of chest pain. He has had intermittent chest pain and pressure for months, has had a negative exercise stress test and is being referred for nuclear stress testing. He was with his and had an argument around 2pm when he started to have chest pain, took 3 nitro without relief. no vomit, diaphoresis, and no pain with exertion. He is speaking in full sentences in no distress though does appear anxius. Has soft nontender abdomen. His heart score is 2, will send troponin. Wells score low Hr 106 so can't use perc to exclude Pe will send d dimer. normal vascular exam and no tearing back pain so doubt dissection. Clear lungs and no fever or cough so doubt ptx or pna and do not feel xray indicated Pt signed out to oncoming provider pending lab results Differential Diagnosis nstemi, anxiety, esopageal spasm, pe ECG Data Attestation: I personally reviewed and interpreted this ECG (s) as follows: Prior ECG tracings: not available for review Interpretation: sinus rhythm, rate of 96, pr 144, no acute st t wave ischemic findings HPI General Mode of arrival: EMS. Date/Time Provider Initiated Documentation: 10/16/18 15:23. Limitations to Documentation: no limitations. Information obtained by: patient. History of Present Illness 33 year old M presents to the emergency department with the chief complaint of chest pain, described as moderate, Quality is described as other (pressure), and is localized to the chest. Patient reports no radiation. Patient started experiencing this hour(s) (2) and it has been constant. No relieving factors improve symptom(s), No exacerbating factors reported . Patient notes no other symptoms.. Patient did receive the following treatments prior to arrival, none Related Data Home Medications Medication Instructions Recorded Confirmed gabapentin 300 mg capsule 900 mg PO TID cap 04/11/18 10/12/18 acetaminophen 1,000 mg PO Q8H PRN #90 tab 07/31/18 10/12/18 atenolol 25 mg PO DAILY 07/31/18 10/12/18 ibuprofen 600 mg PO TID PRN #90 tab 07/31/18 10/12/18 oxycodone 5 mg tablet 5 mg PO Q4H #12 tab MDD 30mg 08/01/18 10/12/18 duloxetine [Cymbalta] 90 mg PO DAILY 10/12/18 10/12/18 omeprazole 40 mg PO DAILY 10/12/18 10/12/18 Previous Rx's Medication Instructions Recorded acetaminophen 1,000 mg PO Q8H PRN #90 tab 07/31/18 ibuprofen 600 mg PO TID PRN #90 tab 07/31/18 oxycodone 5 mg tablet 5 mg PO Q4H #12 tab MDD 30mg 08/01/18 Allergies Allergy/AdvReac Type Severity Reaction Status Date / Time tramadol Allergy Intermediate hives Unverified 10/12/18 17:27 General Stated Complaint: Chest Pain FALGUNI: 2 Review of Systems Review of Systems All systems reviewed & are unremarkable except as noted in HPI and below Constitutional Denies chills, Denies fever(s) and Denies weakness Respiratory Denies cough Gastrointestinal Denies abdominal pain, Denies nausea and Denies vomiting Genitourinary Denies dysuria Musculoskeletal Denies joint swelling Integumentary/Breasts Denies rash Neurologic Denies weakness Endocrine Denies heat intolerance [facility] Social History Smoking/Tobacco Use Status: Current-Occasional Tobacco Type: cigarettes Alcohol Intake: former Drug use: Occasionally Substance use type: marijuana Housing: apartment Number of Children: 4 current occupation: [employer] What type of physical activity do you participate in: none Do you feel safe in your relationship?: Yes Exam Const General: anxious Orientation: alert HENMT Head: normal to inspection Ears: external ears normal General nose exam: external nose normal Mouth: moist mucous membranes Eyes General: appearance normal, both eyes and all related structures Neck Neck: normal visual inspection Resp Effort & Inspection: normal respiratory effort and able to speak in complete sentences Cardio Rate: regular rate Skin General skin exam: no rashes or lesions noted Neuro General: alert and oriented x3 Extrem General: normal to inspection Psych Mental Status: mental status grossly normal Course Vital Signs Temperature 36.6 C 10/16/18 15:20 Pulse 90 10/16/18 15:20 Respiratory Rate 20 10/16/18 15:20 Blood Pressure 138/70 10/16/18 15:20 Pulse Oximetry 100 10/16/18 15:20 Temperature 36.6 C 10/16/18 15:20 Temperature Source Skin 10/16/18 15:20 Pulse 90 10/16/18 15:20 Respiratory Rate 20 10/16/18 15:20 Blood Pressure 138/70 10/16/18 15:20 Blood Pressure Position Sitting 10/16/18 15:20 Pulse Oximetry 100 10/16/18 15:20
--- NOTE | 2018-10-16 15:39 | ED.GENADUL_ITS ---
Discharge Plan Disposition Patient Disposition: HOME Condition: Stable Discharge Details Chief Complaint: Chest Pain Clinical Impression: Chest pain Primary Care Provider: Kaylie Whipple ED Provider: Higinio Rawls Home Meds and New Rx's Prescriptions: No Action oxycodone 5 mg tablet 5 mg PO Q4H MDD 30mg Qty: 12 RF: 0 atenolol 25 mg Tablet 25 mg PO DAILY RF: 0 acetaminophen 500 mg tablet 1,000 mg PO Q8H PRN (Reason: pain) Qty: 90 RF: 3 ibuprofen 600 mg tablet 600 mg PO TID PRNQty: 90 RF: 3 gabapentin 300 mg capsule 900 mg PO TID RF: 0 duloxetine [Cymbalta] 30 mg Capsule,Delayed Release(Dr/Ec) 90 mg PO DAILY RF: 0 omeprazole 40 MG capsule,delayed release(DR/EC) 40 mg PO DAILY RF: 0 Medical Decision Making 33 yo male with hx of gerd, anxiety, prior alcohol abuse sober for over 60 days per pt who comes in with chief complaint of chest pain. He has had intermittent chest pain and pressure for months, has had a negative exercise stress test and is being referred for nuclear stress testing. He was with his and had an argument around 2pm when he started to have chest pain, took 3 nitro without relief. no vomit, diaphoresis, and no pain with exertion. He is speaking in full sentences in no distress though does appear anxius. Has soft nontender abdomen. His heart score is 2, will send troponin. Wells score low Hr 106 so can't use perc to exclude Pe will send d dimer. normal vascular exam and no tearing back pain so doubt dissection. Clear lungs and no fever or cough so doubt ptx or pna and do not feel xray indicated Pt signed out to oncoming provider pending lab results Differential Diagnosis nstemi, anxiety, esopageal spasm, pe ECG Data Attestation: I personally reviewed and interpreted this ECG (s) as follows: Prior ECG tracings: not available for review Interpretation: sinus rhythm, rate of 96, pr 144, no acute st t wave ischemic findings HPI General Mode of arrival: EMS . Date/Time Provider Initiated Documentation: 10/16/18 15:23 . Limitations to Documentation: no limitations . Information obtained by: patient . History of Present Illness 33 year old M presents to the emergency department with the chief complaint of chest pain, described as moderate, Quality is described as other (pressure), and is localized to the chest. Patient reports no radiation. Patient started experiencing this hour(s) (2) and it has been constant. No relieving factors improve symptom(s), No exacerbating factors reported . Patient notes no other symptoms.. Patient did receive the following treatments prior to arrival, none Related Data Home Medications Medication Instructions Recorded Confirmed gabapentin 300 mg capsule 900 mg PO TID cap 04/11/18 10/12/18 acetaminophen 1,000 mg PO Q8H PRN #90 tab 07/31/18 10/12/18 atenolol 25 mg PO DAILY 07/31/18 10/12/18 ibuprofen 600 mg PO TID PRN #90 tab 07/31/18 10/12/18 oxycodone 5 mg tablet 5 mg PO Q4H #12 tab MDD 30mg 08/01/18 10/12/18 duloxetine [Cymbalta] 90 mg PO DAILY 10/12/18 10/12/18 omeprazole 40 mg PO DAILY 10/12/18 10/12/18 Previous Rx's Medication Instructions Recorded acetaminophen 1,000 mg PO Q8H PRN #90 tab 07/31/18 ibuprofen 600 mg PO TID PRN #90 tab 07/31/18 oxycodone 5 mg tablet 5 mg PO Q4H #12 tab MDD 30mg 08/01/18 Allergies Allergy/AdvReac Type Severity Reaction Status Date / Time tramadol Allergy Intermediate hives Unverified 10/12/18 17:27 General Stated Complaint: Chest Pain FALGUNI: 2 Review of Systems Review of Systems All systems reviewed & are unremarkable except as noted in HPI and below Constitutional Denies chills, Denies fever(s) and Denies weakness Respiratory Denies cough Gastrointestinal Denies abdominal pain, Denies nausea and Denies vomiting Genitourinary Denies dysuria Musculoskeletal Denies joint swelling Integumentary/Breasts Denies rash Neurologic Denies weakness Endocrine Denies heat intolerance [facility] Social History Smoking/Tobacco Use Status: Current-Occasional Tobacco Type: cigarettes Alcohol Intake: former Drug use: Occasionally Substance use type: marijuana Housing: apartment Number of Children: 4 current occupation: [employer] What type of physical activity do you participate in: none Do you feel safe in your relationship?: Yes Exam Const General: anxious Orientation: alert HENMT Head: normal to inspection Ears: external ears normal General nose exam: external nose normal Mouth: moist mucous membranes Eyes General: appearance normal, both eyes and all related structures Neck Neck: normal visual inspection Resp Effort & Inspection: normal respiratory effort and able to speak in complete sentences Cardio Rate: regular rate Skin General skin exam: no rashes or lesions noted Neuro General: alert and oriented x3 Extrem General: normal to inspection Psych Mental Status: mental status grossly normal Course Vital Signs Temperature 36.6 C 10/16/18 15:20 Pulse 90 10/16/18 15:20 Respiratory Rate 20 10/16/18 15:20 Blood Pressure 138/70 10/16/18 15:20 Pulse Oximetry 100 10/16/18 15:20 Temperature 36.6 C 10/16/18 15:20 Temperature Source Skin 10/16/18 15:20 Pulse 90 10/16/18 15:20 Respiratory Rate 20 10/16/18 15:20 Blood Pressure 138/70 10/16/18 15:20 Blood Pressure Position Sitting 10/16/18 15:20 Pulse Oximetry 100 10/16/18 15:20
[2018-10-16 15:57] LABS: Abs Immature Grans 0.01 k/cumm (0.0-0.09); Absolute Basophil Count 0.03 k/cumm (0.0-0.2); Absolute Eosinophil Count 0.16 k/cumm (0.0-0.7); Absolute Lymphocyte Count 2.52 k/cumm (1.2-3.4); Absolute Monocyte Count 0.55 k/cumm (0.11-0.7); Absolute Neutrophil Count 3.49 k/cumm (1.2-6.7); Basophils % 0.4; Eosinophils % 2.4; HCT 44.3 % (40.0-50.0); HGB 15.7 g/dL (13.5-17.5); Immature Grans % 0.1; Lymphocytes % 37.3; Mean Corp. HGB Concentration 35.4 g/dL (32.0-36.0); Mean Corpuscular Hemoglobin 31.7 pg (27.0-33.0); Mean Corpuscular Volume 89.3 fL (80-95); Mean Platelet Volume 10.3 fL (8.0-11.0); Monocytes % 8.1; Neutrophils % 51.7; Platelet Count 218 x1000/uL (130-400); RBC 4.96 m/cumm (4.50-6.00); RBC Distribution Width 12.8 % (11.8-14.1); White Blood Cell Count 6.76 k/cumm (4.4-10.8)
[2018-10-16 16:09] LABS: PTT Activated 25.1 sec (21.0-31.4); Prothrombin Time 10.4 sec (9.3-11.0)
[2018-10-16 16:18] LABS: ALT 47 U/L (12-78); AST 23 U/L (15-37); Albumin 4.2 g/dL (3.4-5.0); Alkaline Phosphatase 78 U/L (46-116); Anion Gap 13.7 mmol/L (3-11); BUN 9 mg/dL (7-18); Bilirubin, Total 0.7 mg/dL (0.2-1.0); CO2 23.3 mmol/L (21.0-32.0); CREATININE 1.01 mg/dL (0.70-1.30); Calcium 9.5 mg/dL (8.5-10.1); Chloride 103 mmol/L (98-107); Glucose 95 mg/dL (70-100); Lipase 81 U/L (73-393); Potassium 3.6 mmol/L (3.5-5.1); Sodium 140 mmol/L (136-145); Total Protein 7.5 g/dL (6.4-8.2)
[2018-10-16 16:19] LABS: Troponin I < 0.02 ng/mL (0.00-0.06)
[2018-10-16 16:27] LABS: D-Dimer 903 ng/mlFEU (<500)
--- NOTE | 2018-10-16 16:42 | DI.CT_ITS ---
SYMPTOM/DIAGNOSIS: CHEST PAIN, ELEVATED D DIMER PE CHEST CT: CT angiography was performed with multi slice acquisition and multi planar and 3D reconstruction. Comparison is made with chest CT dated 07/10/18. The exam is somewhat limited by patient body habitus and respiratory motion. The lungs show respiratory motion and mild dependent changes but are otherwise clear. No pulmonary emboli or aortic dissection is seen. There are no pleural or pericardial effusions. Mild bilateral gynecomastia is again noted. There is fatty infiltration of the liver and mild splenomegaly which appears unchanged. IMPRESSION: No evidence of pulmonary emboli or other acute abnormality.
[2018-10-16] MEDS: Normal Saline Flush 10 ML SYR IVP (18:27)
[2018-10-16] MEDS: Omnipaque 350 MG/ML 100 ML BTL IJ (18:27)
--- NOTE | 2018-10-16 18:44 | DI.VRAD_ITS ---
EXAM: CT Angiography Chest With Contrast EXAM DATE/TIME: 10/16/2018 4:44 PM CLINICAL HISTORY: 33 years old, male; Signs and symptoms; Other: Chest pain, elevated d-dimer TECHNIQUE: Imaging protocol: Axial computed tomographic angiography images of the chest with intravenous contrast using CT angiography protocol. Coronal and sagittal reformatted images were created and reviewed. 3D rendering: MIP reconstructed images were created and reviewed. Radiation optimization: All CT scans at this facility use at least one of these dose optimization techniques: automated exposure control; mA and/or kV adjustment per patient size (includes targeted exams where dose is matched to clinical indication); or iterative reconstruction. Contrast material: OMNIPAQUE 350; Contrast volume: 100 ml; Contrast route: IV; COMPARISON: CR XR CHEST 2V PA LATERAL 10/12/2018 6:13 PM FINDINGS: Pulmonary arteries: The pulmonary arteries enhance appropriately with no evidence of pulmonary embolism. Aorta: The aorta enhances appropriately without evidence of dissection or aneurysm. Thyroid: The visualized thyroid gland demonstrates no gross abnormality. Lungs: No tracheobronchial abnormalities. No pulmonary infiltrates or edema. No pulmonary nodules or mass lesions are identified. Pleural space: No pleural effusion. No pneumothorax. Heart: Heart size normal. No pericardial effusion. Mediastinum: The esophagus is largely contracted but demonstrates no gross abnormality. Spleen: Mild splenomegaly measuring 16 centers maximum dimension with no focal splenic lesions in the scan range. Visualized upper abdominal structures are otherwise unremarkable. Lymph nodes: No supraclavicular or axillary adenopathy. No mediastinal or hilar adenopathy. Bones/joints: No acute osseous abnormalities are identified. Soft tissues: Mild bilateral symmetrical gynecomastia, with retroareolar fibroglandular tissue measuring about 2.5 cm bilaterally. This is nonspecific. IMPRESSION: 1. No evidence of pulmonary embolism or aortic dissection. 2. No acute intrathoracic process is identified. 3. Symmetrical gynecomastia noted, nonspecific. 4. Mild splenomegaly. Dictated and Authenticated by: Arcadio Castillo MD. Ordering:ERASMO Jorge MD
[2018-10-16 20:06] LABS: Troponin I < 0.02 ng/mL (0.00-0.06)
--- NOTE | 2018-10-17 08:20 | PDOC.ERCMPRO ---
Care Management Progress Note 10/17-ED Provider requested assistance with a PCP (ean) f/u in one week for atypical chest pain. Referral faxed to [facility].
== END 2018-10-16 21:24 | disposition home or self-care (01) ==
PROVIDERS: Emergency Medicine; Emergency Provider Nurse Practitioner Family; PCP Nurse Practitioner Family
DX: R07.9 Chest pain, unspecified (principal); F17.210 Nicotine dependence, cigarettes, uncomplicated; I10 Essential (primary) hypertension; F10.10 Alcohol abuse, uncomplicated
CPT/HCPCS: 36415; 71275; 80053; 83690; 93005; 99285; 83735; 84484; 85025; 85379; 85610; 85730; 93010; J3490

== ENCOUNTER 2018-10-21 15:29 | Outpatient (REF) | payer MEDICAID, SELFPAY ==
[2018-10-23 13:53] LABS: Chlamydia Result Negative; GC Result Negative; Specimen Description URINE
== END 2018-10-21 15:49 ==
LOC: NCHCN 15:29
PROVIDERS: PCP Nurse Practitioner Family; Visit Provider Nurse Practitioner Family
DX: R30.0 Dysuria (principal); Z11.3 Encounter for screening for infections with a predominantly sexual mode of transmission; F41.1 Generalized anxiety disorder; N53.12 Painful ejaculation
CPT/HCPCS: 87491; 87591; 87086

== ENCOUNTER 2018-10-29 00:30 | Outpatient (CLI) | payer MEDICAID, SELFPAY ==
--- NOTE | 2018-10-29 11:30 | MERGEMPI_ITS ---
*[facility]* *[facility]* [address] [place] [address] Myocardial Perfusion Imaging - SPECT Saul protocol Date of study: 10/29/2018 *PATIENT PRESENTATION* Height: 180.3cm (71in) Blood Pressure: Weight: 131.8kg (290lb) BSA: 2.63m^2 Referring physician: Miguel A Balderas Ordering physician: Kaylie Whipple Impressions: - Myocardial perfusion imaging is abnormal. - No evidence for myocardial ischemia. - Low risk of cardiac events. Summary: 1. Myocardial perfusion imaging: There is a moderate sized, moderately intense, predominantly reversible defect involving the apical inferior, mid inferolateral, mid anterolateral, and apical lateral wall(s). This suggests moderate infarct but no ischemia in the LCX territory. Given that the defect partially disappears with attenuation correction and normal segmental wall motion suggest that this is in part due to artifact. 2. The left ventricular end-systolic volume is 111ml. The calculated left ventricular ejection fraction after stress: 49%. LV global systolic function is mildly reduced. No left ventricular regional motion abnormality. 3. Stress ECG conclusions: The stress ECG is negative. 4. Stress: The target heart rate was not achieved. There is a normal resting blood pressure with an appropriate response to stress. The patient experienced no chest pain during stress. 5. Treadmill exercise testing was performed using the Saul protocol. The patient exercised for 8 min 7 sec, to protocol stage 3. Exercise was terminated due to knee pain. Test was changed to pharmacological stress test because the target heart rate was not achieved. Recommendations: 1. Medical management is recommended. 2. Clinical correlation is recommended. Indication: R07.9, Appropriate Use Criteria: A (Appropriate). History: REASON FOR TESTING: PATIENT HAD A NEGATIVE STRESS TEST AFTER MAXIMAL EXERCISE WITH REPRODUCTION OF SYMPTOMS ON 08/13/18. HE PRESENTED TO THE ER ON 10/16/18 WITH INTERMITTENT CHEST PAIN; HIS TROPONINS IN THE ER WERE NEGATIVE TIMES 2. PATIENT REPORTS HAVING INTERMITTENT CHEST PAIN/PRESSURE FOR THE LAST 3-4 MONTHS. HE STATES HIS PAIN CAN BE SHARP OR DULL AND ACHY IN NATURE. HE REPORTS OCCASIONAL SUDDEN MID STERNAL SHARP (10/10) PAIN THAT LASTS A FEW SECONDS THEN PAIN GOES AWAY ON ITS OWN. HE REPORTS THE DULL ACHY (6/10) PAIN IS BOTH EXERTIONAL AND AT REST. THE DULL/ACHY PAIN AND BE IN HIS LEFT NECK, MID STERNUM, TO THE LEFT HIS STERNUM OR EPIGASTRIC PAIN THAT LASTS 5 MINUTES TO 30 MINUTES AND IS RELIEVED WITH EITHER REST OR NITRO. 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 HE DENIES CHEST PAIN/PRESSURE UPON ARRIVAL TO TESTING TODAY. SIGNIFICANT PAST MEDICAL HISTORY: GERD, DARREL, GENERALIZED ANXIETY DISORDER, PATIENT REPORTS BEING SOBER NOW FOR APPROXIMATELY 70+ DAYS. SMOKING STATUS: CURRENT SMOKER. HAS SMOKED FOR 10 YEARS 1 PPD. EXERCISE ROUTINE: VERY ACTIVE WITH ADL'S AND ALSO WALKS APPROXIMATELY 2 MILES PER DAY. Risk factors: Family history of coronary artery disease. Current tobacco use. Hypertension. Dyslipidemia. Cholesterol: 283mg/dl. HDL: 37mg/dl. LDL: 193mg/dl. Triglycerides: 170mg/dl. ALLERGIES: TRAMADOL. MEDICATIONS: LIPITOR 25 MG DAILY, ATENOLOL 50 MG DAILY, CYMBALTA 90 MG DAILY, GABAPENTIN 900 MG TID, OMEPRAZOLE 40 MG DAILY, ADDERALL 30 MG DAILY. Imaging Technique: Protocol: Saul protocol. Acquisition: Gated SPECT; 1 day - rest/stress. The patient was imaged in the supine position. Attenuation correction used. Isotope administration: - Rest. Tc[99m]-sestamibi. Dose: 15.1mCi. Injection time: 10:45 AM. Injection to stress time: 00:45. - Stress. Tc[99m]-sestamibi. Dose: 45.4mCi. Injection time: 01:30 PM. 1-2 min before end of exercise Test Modification: Original ordered test: Exercise stress test. New test ordered: Pharmacological stress test. Reason test was changed: Unable to achieve target heart rate. Baseline ECG: SINUS RHYTHM. HR 77 BPM. Stress protocol: + +---+ + + !Stage !HR !BP (mmHg) !Comments ! + +---+ + + !Baseline supine !77 !128/60 (83) ! ! + +---+ + + !Baseline standing !90 !130/60 (83) ! ! + +---+ + + !Stage I; 1.7mph, 10degrees; 3 min!118!130/60 (83) ! ! + +---+ + + !Stage II; 2.5mph, 12degrees; 3 !143!156/76 (103)! ! !min ! ! ! ! + +---+ + + !Peak stress !143! ! ! + +---+ + + !Recovery; 1 min !125!168/78 (108)! ! + +---+ + + !1 min !100!162/68 (99) !Inject Regadenoson.! + +---+ + + !3 min !87 !144/70 (95) ! ! + +---+ + + !6 min !83 !132/68 (89) ! ! + +---+ + + * Stress results: STRESS TEST ENDED IN 8 MINUTES 7 SECONDS DUE TO SIGNIFICANT LEFT KNEE PAIN. NORMAL HEART RATE AND BLOOD PRESSURE. MAX HEART RATE:143 75 % OF TARGET HEART RATE ACHIEVED. MET'S: 7.05 NO ECTOPY. NO ANGINA. NO SIGNIFICANT ST SEGMENT CHANGES. MODERATELY DIMINISHED FUNCTIONAL CAPACITY DUE TO SIGNIFICANT LEFT KNEE PAIN AT THIS TIME. PATIENT UNABLE TO CONTINUE WALKING ON TREADMILL DUE TO SIGNIFICANT LEFT KNEE PAIN AT THIS TIME. STRESS TEST ENDED IN 6 MINUTES 51 SECONDS. NORMAL HEART RATE AND BLOOD PRESSURE RESPONSE TO LEXISCAN INJECTION. NO ECTOPY. PATIENT HAD SUDDEN BRIEF SHARP ACHE TO THE LEFT OF STERUM AT APPROXIMATELY 1 MINUTE 15 SECONDS POST LEXISCAN INJECTION. NO SIGNIFICANTST SEGMENT CHANGES. Maximal heart rate during stress was 143bpm (76% of maximal predicted heart rate). The maximal predicted heart rate was 189bpm. The target heart rate was not achieved. There is a normal resting blood pressure with an appropriate response to stress. The rate-pressure product for the peak heart rate and blood pressure was 88745ah Hg/min. The patient experienced no chest pain during stress. Stress ECG: The stress ECG is negative. Myocardial perfusion: Imaging information: gated. Image quality reduced due to diaphragmatic attenuation and subdiaphragmatic activity. The left ventricle is moderately dilated. There is a moderate sized, moderately intense, predominantly reversible defect involving the apical inferior, mid inferolateral, mid anterolateral, and apical lateral wall(s). This suggests moderate infarct but no ischemia in the LCX territory. Given that the defect partially disappears with attenuation correction and normal segmental wall motion suggest that this is in part due to artifact. Ventricular Function (Wall Motion): The left ventricular end-systolic volume is 111ml. The calculated left ventricular ejection fraction after stress: 49%. LV global systolic function is mildly reduced. No left ventricular regional motion abnormality. Study data: Miguel A Balderas MD supervised and was readily available during the procedure. This study was interpreted by [facility]. Study status: Routine. Consent: The risks, benefits, and alternatives to the procedure were explained to the patient and informed consent was obtained. Procedure: Initial setup. A baseline ECG was recorded. Surface ECG leads and manual cuff blood pressure measurements were monitored. Heart sounds: Normal. Lung sounds: Normal. Treadmill exercise testing was performed using the Saul protocol. The patient exercised for 8 min 7 sec, to protocol stage 3. Exercise was terminated due to knee pain. Test was changed to pharmacological stress test because the target heart rate was not achieved. Study completion: All catheters inserted during the procedure were removed. The patient tolerated the procedure well and was discharged from the lab. Discharge: The patient left the laboratory in stable condition. Birthdate: Patient birthdate: 1985. Sex: Gender: male. Study date: Study date: 10/29/2018. Study time: 00:01 AM. Signature Documentation: - The imaging portion of this study was interpreted by [facility] Miguel A Balderas MD. - The Stress ECG portion of this study was interpreted by Miguel A Balderas MD. Electronically signed by Miguel A Balderas 10/29/2018 15:15
[2018-10-29] MEDS: Regadenoson 0.4 MG/5 ML SYR IVP (14:10)
== END 2018-10-29 00:50 ==
PROVIDERS: PCP Nurse Practitioner Family; Visit Provider Nurse Practitioner Family
DX: R07.9 Chest pain, unspecified (principal); R94.30 Abnormal result of cardiovascular function study, unspecified; I10 Essential (primary) hypertension; E78.5 Hyperlipidemia, unspecified; F41.1 Generalized anxiety disorder; K21.9 Gastro-esophageal reflux disease without esophagitis; F17.200 Nicotine dependence, unspecified, uncomplicated; Z82.49 Family history of ischemic heart disease and other diseases of the circulatory system
CPT/HCPCS: 78452; 93017; J2785

== ENCOUNTER 2018-12-02 12:56 | Emergency (ER) | payer MEDICAID, SELFPAY ==
[2018-12-02 12:59] VITALS: BP 184/94; PULSE 118; RESP 16; TEMP 36.9; O2SAT 98
--- NOTE | 2018-12-02 13:07 | DI.RAD_ITS ---
SYMPTOMS/DIAGNOSIS: PAIN, POSSIBLE DISLOCATION LEFT SHOULDER: Five views were obtained. There is a previous resection of the distal clavicle with a few ossific radiodensities in the soft tissues. There is no evidence of acute fractur or glenohumeral dislocation.
[2018-12-02] MEDS: Lidocaine 5% Patch 1 PATCH TP (14:07)
[2018-12-02] MEDS: oxyCODONE 5 MG TAB PO (14:07)
--- NOTE | 2018-12-02 14:14 | ED.GENADUL_ITS ---
Discharge Plan Disposition Patient Disposition: HOME Discharge Details Chief Complaint: Orthopedic Primary Care Provider: Kaylie Whipple ED Provider: Luisito Arguello Home Meds and New Rx's Prescriptions: New oxycodone 5 mg tablet 5 mg PO Q6H PRN PRN (Reason: severe pain) Qty: 4 RF: 0 lidocaine 5 % adhesive patch,medicated 1 patch TP DAILY PRN (Reason: pain) Qty: 15 RF: 0 Continued atenolol 25 mg Tablet 50 mg PO DAILY RF: 0 gabapentin 300 mg capsule 900 mg PO TID RF: 0 duloxetine [Cymbalta] 30 mg Capsule,Delayed Release(Dr/Ec) 90 mg PO DAILY RF: 0 omeprazole 40 MG capsule,delayed release(DR/EC) 40 mg PO DAILY RF: 0 Discontinued acetaminophen 500 mg tablet 1,000 mg PO Q8H PRN (Reason: pain) Qty: 90 RF: 3 Discharge Data Discharge Date/Time-TO BE ENTERED AT DEPARTURE: 12/02/18 14:31 Medical Decision Making Left shoulder pain, history of dislocation, attempted to relocate at home, feels it still out. Significant little limited exam due to any pain or discomfort with movement of the shoulder and pain stated to the shoulder. Radiological imaging was ordered. Imaging reviewed and showed no signs of dislocation and no other abnormalities noted. Patient reassessed and more defined area with palpation of the left pectoralis muscle patient has significant discomfort. I feel that patient has a severe strain of the pectoralis muscle but there is not any bulging mass, significant ecchymosis to suggest complete rupture. Patient placed in a sling for comfort, given lidocaine patch, and given very limited prescription of doxy due to patient's history of severe gastritis and informed that he should not take any NSAIDs and recent diagnosis per patient report of cirrhosis patient should not take acetaminophen. Patient informed to follow-up with orthopedist if not improving in the next 1 to 2 weeks. Drug database was queried and patient had previous narcotic prescribed but not for months and it appears that patient took them as directed no worrisome findings noted. Return cautions discussed after discussion of diagnosis and plan of care patient has no further needs, questions, or concerns and states clear understanding to return to the emergency department for any worsening symptoms. HPI General Mode of arrival: ambulatory . Date/Time Provider Initiated Documentation: 12/02/18 13:07 . Limitations to Documentation: no limitations . Information obtained by: patient, family and RN notes reviewed . History of Present Illness 33 year old M presents to the emergency department with the chief complaint of left shoulder injury, described as moderate and similar to prior episodes, with intensity rated at 6. Quality is described as aching and sharp, and is localized to the left and upper extremity. Patient started experiencing this hour(s) (1) and it has been constant. No relieving factors improve symptom(s), Movement worsens symptoms . Patient notes no other symptoms.. Patient did receive the following treatments prior to arrival, none Related Data Home Medications Medication Instructions Recorded Confirmed gabapentin 300 mg capsule 900 mg PO TID cap 04/11/18 12/02/18 atenolol 50 mg PO DAILY 07/31/18 12/02/18 duloxetine [Cymbalta] 90 mg PO DAILY 10/12/18 12/02/18 omeprazole 40 mg PO DAILY 10/12/18 12/02/18 lidocaine 1 patch TP DAILY PRN #15 each 12/02/18 oxycodone 5 mg PO Q6H PRN PRN #4 tab 12/02/18 Previous Rx's Medication Instructions Recorded lidocaine 1 patch TP DAILY PRN #15 each 12/02/18 oxycodone 5 mg PO Q6H PRN PRN #4 tab 12/02/18 Allergies Allergy/AdvReac Type Severity Reaction Status Date / Time tramadol Allergy Intermediate hives Unverified 12/02/18 13:03 General Stated Complaint: Orthopedic FALGUNI: 3 Review of Systems Cardiovascular Denies chest pain, Denies syncope and Denies dyspnea Respiratory Denies dyspnea Musculoskeletal Reports as per HPI, Denies numbness and Denies tingling Integumentary/Breasts Denies rash, Denies sores and Denies wounds Neurologic Denies syncope, Denies numbness and Denies tingling [facility] Medical History Abdominal pain, right upper quadrant (Acute) Alcohol abuse (Chronic) Chronic low back pain (Chronic) Cigarette nicotine dependence (Chronic) Crohns disease (Chronic) Depression with anxiety (Chronic) Fistula (Acute) Generalized anxiety disorder (Chronic) GERD (gastroesophageal reflux disease) (Chronic) HTN (hypertension) (Chronic) Hyperlipidemia (Chronic) Left sided sciatica (Chronic) Morbid obesity (Chronic) Nasal lesion (Acute) DARREL (obstructive sleep apnea) (Chronic) Paresthesia (Chronic) Rheumatoid arthritis with rheumatoid factor of multiple sites without organ or systems involvement (Chronic) Surgical History EGD - MAC (10/16/17) H/O: knee surgery (Acute) S/P arthroscopy of left shoulder (Acute) Status post hip surgery (Acute) Social History Smoking/Tobacco Use Status: Current every day Tobacco Type: cigarettes Alcohol Intake: former Drug use: Occasionally Substance use type: marijuana Details: CBD Housing: apartment Number of Children: 4 current occupation: [employer] What type of physical activity do you participate in: none Do you feel safe at home: Yes Do you feel safe in your relationship?: Yes Exam Const General: cooperative and no acute distress Orientation: alert, awake and oriented x3 Chest Chest: no masses, tenderness pectoral muscle on the left diffusely and No rash Resp Effort & Inspection: normal respiratory effort and able to speak in complete sentences Cardio Rate: regular rate Rhythm: regular rhythm Extrem General: normal exam except as noted Left upper extremity: shoulder/upper arm Details: inspection abnormal, tenderness Location: of the A-C joint, of the proximal humerus and over the suba cromial bursa, axillary nerve sensory function normal and abnormal ROM Details: held in an abnormal fashion Details: in ADduction and in internal rotation and with range as follows (Severe pain with any range of motion); no abrasions, no ecchymosis and no deformity Course Vital Signs Temperature 36.9 C 12/02/18 12:59 Pulse 118 H 12/02/18 12:59 Respiratory Rate 16 12/02/18 12:59 Blood Pressure 184/94 H 12/02/18 12:59 Pulse Oximetry 98 12/02/18 12:59 Temperature 36.9 C 12/02/18 12:59 Temperature Source Skin 12/02/18 12:59 Pulse 118 H 12/02/18 12:59 Respiratory Rate 16 12/02/18 12:59 Blood Pressure 184/94 H 12/02/18 12:59 Pulse Oximetry 98 12/02/18 12:59 Oxygen Delivery Method Room Air 12/02/18 12:59 Oxygen Flow Rate 0 12/02/18 12:59 Pain Level 6 12/02/18 13:09
[2018-12-02 14:30] VITALS: BP 150/89; PULSE 92; RESP 16; O2SAT 98
== END 2018-12-02 14:31 | disposition home or self-care (01) ==
PROVIDERS: Emergency Provider Nurse Practitioner Family; PCP Nurse Practitioner Family
DX: S29.012A Strain of muscle and tendon of back wall of thorax, initial encounter (principal); X58.XXXA Exposure to other specified factors, initial encounter
CPT/HCPCS: 99283; 73030; 99282; L3650

== ENCOUNTER 2018-12-26 15:39 | Emergency (ER) | payer MEDICAID, SELFPAY ==
[2018-12-26 15:41] VITALS: BP 154/66; PULSE 94; RESP 18; TEMP 36.9; O2SAT 96
--- NOTE | 2018-12-26 16:20 | DI.US_ITS ---
SYMPTOM/DIAGNOSIS: RUQ PAIN LIMITED ABDOMEN ULTRASOUND: The liver is mildly enlarged and shows mild fatty infiltration. Gallstones are noted. There is no evidence of gallbladder wall thickening or pericholecystic fluid. There is no biliary dilatation. The right kidney is unremarkable. The pancreas is obscured by bowel gas. IMPRESSION: Cholelithiasis. No evidence of acute cholecystitis.
[2018-12-26] MEDS: Lactated Ringers 1,000 ML 1000 ML IV (16:25)
--- NOTE | 2018-12-26 16:31 | NUR.NOTE ---
Nursing Note: pt to ultrasound in wheelchair
[2018-12-26 16:37] LABS: Abs Immature Grans 0.05 k/cumm (0.0-0.09); Absolute Basophil Count 0.04 k/cumm (0.0-0.2); Absolute Lymphocyte Count 3.12 k/cumm (1.2-3.4); Absolute Monocyte Count 0.65 k/cumm (0.11-0.7); Absolute Neutrophil Count 4.92 k/cumm (1.2-6.7); Basophils % 0.4; Eosinophils % 3.3; HCT 43.8 % (40.0-50.0); HGB 15.5 g/dL (13.5-17.5); Immature Grans % 0.6; Lymphocytes % 34.4; Mean Corp. HGB Concentration 35.4 g/dL (32.0-36.0); Mean Corpuscular Hemoglobin 31.6 pg (27.0-33.0); Mean Corpuscular Volume 89.2 fL (80-95); Mean Platelet Volume 9.7 fL (8.0-11.0); Monocytes % 7.2; Neutrophils % 54.1; Platelet Count 198 x1000/uL (130-400); RBC 4.91 m/cumm (4.50-6.00); RBC Distribution Width 14.3 % (11.8-14.1); White Blood Cell Count 9.08 k/cumm (4.4-10.8)
[2018-12-26 16:55] LABS: ALT 38 U/L (12-78); AST 18 U/L (15-37); Albumin 4.2 g/dL (3.4-5.0); Alkaline Phosphatase 75 U/L (46-116); Anion Gap 8.7 mmol/L (3-11); BUN 9 mg/dL (7-18); Bilirubin, Total 0.4 mg/dL (0.2-1.0); CO2 27.3 mmol/L (21.0-32.0); CREATININE 0.93 mg/dL (0.70-1.30); Calcium 9.2 mg/dL (8.5-10.1); Chloride 103 mmol/L (98-107); Glucose 81 mg/dL (70-100); Lipase 79 U/L (73-393); Potassium 3.9 mmol/L (3.5-5.1); Sodium 139 mmol/L (136-145); Total Protein 7.8 g/dL (6.4-8.2)
[2018-12-26] MEDS: Ondansetron 4 MG/2 ML VIAL (17:18)
--- NOTE | 2018-12-26 17:35 | DI.VRAD_ITS ---
EXAM: US Abdomen Limited, Right Upper Quadrant EXAM DATE/TIME: 12/26/2018 4:51 PM CLINICAL HISTORY: 33 years old, male; Abdominal pain; Generalized TECHNIQUE: Imaging protocol: Real-time ultrasound of the abdomen with image documentation. Examination was focused on the right upper quadrant. COMPARISON: US ABDOMEN ULTRASOUND (P) 10/15/2017 3:28 PM FINDINGS: Liver: The liver is enlarged measuring 20.4 cm with increased echogenicity and a heterogeneous pattern. Gallbladder: Echogenic foci are present in the gallbladder with posterior acoustic shadowing consistent with cholelithiasis. There is a 4 mm x 5 mm probable cholesterol polyp off the anterior wall. There is no evidence of gallbladder wall thickening or pericholecystic fluid currently. Common bile duct: Normal. No stones. No dilation. Pancreas: Pancreas is not well-seen secondary overlying bowel gas. Right kidney: Right kidney appears normal. IMPRESSION: 1. Cholelithiasis without current sonographic evidence of cholecystitis. Probable small cholesterol polyp. 2. Hepatomegaly with a heterogeneous echogenic liver. Differential diagnosis would include fatty changes versus early cirrhosis. Other causes of liver heterogeneity cannot be excluded. Please correlate with patient's clinical laboratory findings. Dictated and Authenticated by: Reddy Marte MD. Ordering:GARTH Guardado MD
--- NOTE | 2018-12-26 17:51 | ED.GENADUL_ITS ---
Discharge Plan Disposition Patient Disposition: HOME Discharge Details Chief Complaint: Abd Prob Clinical Impression: Biliary colic Primary Care Provider: Kaylie Whipple ED Provider: Geo Rea Home Meds and New Rx's Prescriptions: New ondansetron HCl 4 mg tablet 4 mg PO Q8H PRN (Reason: nausea and vomiting) Qty: 7 RF: 0 Continued gabapentin 300 mg capsule 900 mg PO TID RF: 0 duloxetine [Cymbalta] 30 mg Capsule,Delayed Release(Dr/Ec) 90 mg PO DAILY RF: 0 pantoprazole [Protonix] 40 mg Tablet,Delayed Release (Dr/Ec) 40 mg PO DAILY RF: 0 Discharge Instructions Instructions: Biliary Colic (ED) Additional Instructions: Please contact your primary care physician to arrange follow-up. Please follow-up with Dr. Diehl on Saturday at 9:[address] [facility] surgical clinic. Maintain a low-fat diet this weekend. Please take ibuprofen over the counter. Take 600mg by mouth every 6 hours as needed for pain. Return to the ER for any worsening or new concerning symptoms. Referrals: Irma Grider MD [ [facility] STAFF PHYSICIAN] - Kaylie Whipple [Primary Care Provider] - Discharge Data Discharge Date/Time-TO BE ENTERED AT DEPARTURE: 12/26/18 18:00 Medical Decision Making 33-year-old male with history of prior alcoholism, now sober x6 months, history of cirrhotic changes to the liver, GERD, hypertension, hyperlipidemia, Crohn's disease, recently had abdominal ultrasound that revealed gallstones a couple weeks ago at [facility], now with 4 days of intermittent crampy sharp right upper quadrant abdominal pain. Patient is tender right upper quadrant. No peritoneal findings. Patient is afebrile, not tachycardic with no signs of systemic inflammation. Patient was given morphine 4 mg IV x2 for pain. He was also given Zofran 4 mg IV for nausea. Patient was given IV fluids. Labs reviewed and no leukocytosis. Normal LFTs. Normal lipase. Ultrasound of the right upper quadrant reviewed and interpreted by radiology: IMPRESSION: 1. Cholelithiasis without current sonographic evidence of cholecystitis. Probable small cholesterol polyp. 2. Hepatomegaly with a heterogeneous echogenic liver. Differential diagnosis would include fatty changes versus early cirrhosis. Other causes of liver heterogeneity cannot be excluded. Please correlate with patient's clinical laboratory findings. Spoke with Dr. Yates, discussed ED presentation and course, reviewed diagnostics, she recommends outpatient follow-up on Saturday for reassessment and scheduling of outpatient cholecsystecomty. HPI General Mode of arrival: ambulatory . Date/Time Provider Initiated Documentation: 12/26/18 16:07 . Limitations to Documentation: no limitations . Information obtained by: patient . HPI Narrative: 33-year-old male with history of prior alcoholism, now sober x6 months, history of cirrhotic changes to the liver, GERD, hypertension, hyperlipidemia, Crohn's disease, here with abdominal pain. Pain present for 4 days, intermittent, decribed as crampy sharp, localized right upper quadrant abdominal pain. He has had some associated nausea. No vomiting. No fevers. No bloody bowel movement. No melena. Recently had abdominal ultrasound that revealed gallstones a couple weeks ago at [facility]. Related Data Home Medications Medication Instructions Recorded Confirmed gabapentin 300 mg capsule 900 mg PO TID cap 04/11/18 12/26/18 duloxetine [Cymbalta] 90 mg PO DAILY 10/12/18 12/26/18 ondansetron HCl 4 mg PO Q8H PRN #7 tab 12/26/18 pantoprazole [Protonix] 40 mg PO DAILY 12/26/18 12/26/18 Previous Rx's Medication Instructions Recorded ondansetron HCl 4 mg PO Q8H PRN #7 tab 12/26/18 Allergies Allergy/AdvReac Type Severity Reaction Status Date / Time tramadol Allergy Intermediate hives Unverified 12/26/18 15:47 General Stated Complaint: Abd Prob FALGUNI: 3 Review of Systems Constitutional Denies fever(s) Cardiovascular Denies chest pain Gastrointestinal Reports as per HPI [facility] Medical History Abdominal pain, right upper quadrant (Acute) Alcohol abuse (Chronic) Chronic low back pain (Chronic) Cigarette nicotine dependence (Chronic) Crohns disease (Chronic) Depression with anxiety (Chronic) Fistula (Acute) Generalized anxiety disorder (Chronic) GERD (gastroesophageal reflux disease) (Chronic) HTN (hypertension) (Chronic) Hyperlipidemia (Chronic) Left sided sciatica (Chronic) Morbid obesity (Chronic) Nasal lesion (Acute) DARREL (obstructive sleep apnea) (Chronic) Paresthesia (Chronic) Rheumatoid arthritis with rheumatoid factor of multiple sites without organ or systems involvement (Chronic) Surgical History EGD - MAC (10/16/17) H/O: knee surgery (Acute) S/P arthroscopy of left shoulder (Acute) Status post hip surgery (Acute) Social History Smoking/Tobacco Use Status: Current every day Tobacco Type: cigarettes Alcohol Intake: former Drug use: Occasionally Substance use type: marijuana Details: CBD Housing: apartment Number of Children: 4 current occupation: [employer] What type of physical activity do you participate in: none Do you feel safe at home: Yes Do you feel safe in your relationship?: Yes Exam Const General: cooperative and no acute distress HENMT Head: normocephalic Mouth: moist mucous membranes Eyes Conjunctivae: normal conjunctivae Sclera: normal sclerae Neck Neck: trachea midline Resp Auscultation: clear to auscultation bilaterally, no rales, no rhonchi and no wheezes Cardio Jugular venous pressure: no JVD Rate: regular rate and not tachycardic Rhythm: regular rhythm GI Palpation: soft, not firm, no guarding, no masses, not rigid and tender in the RUQ; Valadez's sign negative and with no rebound tenderness Skin General skin exam: no rashes or lesions noted Neuro General: alert, awake, oriented x3 and tone normal Extrem General: no edema Psych Appearance: grossly normal Mental Status: mental status grossly normal Course Vital Signs Temperature 36.9 C 12/26/18 15:41 Pulse 94 H 12/26/18 15:41 Respiratory Rate 18 12/26/18 15:41 Blood Pressure 154/66 H 12/26/18 15:41 Pulse Oximetry 96 12/26/18 15:41 Temperature 36.9 C 12/26/18 15:41 Temperature Source Skin 12/26/18 15:41 Pulse 94 H 12/26/18 15:41 Respiratory Rate 18 12/26/18 15:41 Respiratory Effort 12/26/18 15:50 Blood Pressure 154/66 H 12/26/18 15:41 Blood Pressure Position Sitting 12/26/18 15:41 Pulse Oximetry 96 12/26/18 15:41 Oxygen Delivery Method Room Air 12/26/18 15:41 Oxygen Flow Rate 0 12/26/18 15:41 Pain Level 7 12/26/18 15:41 Lab/Test Results Lab/Test Results: Laboratory Tests Range/Units 12/26/18 12/26/18 16:25 16:25 WBC (4.4-10.8) k/cumm 9.08 RBC (4.50-6.00) m/cumm 4.91 Hgb (13.5-17.5) g/dL 15.5 Hct (40.0-50.0) % 43.8 MCV (80-95) fL 89.2 MCH (27.0-33.0) pg 31.6 MCHC (32.0-36.0) g/dL 35.4 RDW (11.8-14.1) % 14.3 H Plt Count (130-400) x1000/uL 198 MPV (8.0-11.0) fL 9.7 Immature Gran % 0.6 Neutrophils % 54.1 Lymphocytes % 34.4 Monocytes % 7.2 Eosinophils % 3.3 Basophils % 0.4 Absolute Neutrophils (1.2-6.7) k/cumm 4.92 Absolute Lymphocytes (1.2-3.4) k/cumm 3.12 Absolute Monocytes (0.11-0.7) k/cumm 0.65 Absolute Eosinophils (0.0-0.7) k/cumm 0.30 Absolute Basophils (0.0-0.2) k/cumm 0.04 Sodium (136-145) mmol/L 139 Potassium (3.5-5.1) mmol/L 3.9 Chloride (98-107) mmol/L 103 Carbon Dioxide (21.0-32.0) mmol/L 27.3 Anion Gap (3-11) mmol/L 8.7 BUN (7-18) mg/dL 9 Creatinine (0.70-1.30) mg/dL 0.93 Estimated GFR/1.73 m2 (mL/min/1.73m2) >= 60.00 Glucose (70-100) mg/dL 81 Calcium (8.5-10.1) mg/dL 9.2 Total Bilirubin (0.2-1.0) mg/dL 0.4 AST (15-37) U/L 18 ALT (12-78) U/L 38 Alkaline Phosphatase (46-116) U/L 75 Total Protein (6.4-8.2) g/dL 7.8 Albumin (3.4-5.0) g/dL 4.2 Lipase (73-393) U/L 79
[2018-12-26 18:18] VITALS: PULSE 78; RESP 16; O2SAT 100
== END 2018-12-26 18:00 | disposition home or self-care (01) ==
PROVIDERS: Emergency Provider Student in an Organized Health Care Education/Training Program; PCP Nurse Practitioner Family
DX: K80.70 Calculus of gallbladder and bile duct without cholecystitis without obstruction (principal)
CPT/HCPCS: 36415; 80053; 83690; 96361; 96374; 96375; 96376; 99284; 76705; 85025; J2405

== ENCOUNTER 2019-01-02 06:18 | Day surgery (SDC) | payer MEDICAID, SELFPAY ==
[2019-01-02] VITALS (14 sets, daily range): BP systolic 116–149; BP diastolic 45–71; PULSE 59–77; RESP 13–20; TEMP 35.8–36.7; O2SAT 93–99
[2019-01-02] MEDS: Lactated Ringers 1,000 ML 80 ML IV ×2 (06:52→11:01)
[2019-01-02] MEDS: ceFAZolin 2 GM/50 ML BAG IVPB (07:35)
[2019-01-02] MEDS: Bupivacaine 0.5% Pres-Free 30 ML VIAL (07:47)
--- NOTE | 2019-01-02 08:19 | GB_PTH ---
PATIENT: SWATHI GARCIA LOC: [facility] U#:[id number] AGE/SX: 33/M ROOM: RE01/02/[address]: Irma Grider MD : 1985 BED: DIS: 01/02/2019 SPEC #: [id number] RECD: 01/02/19 12:35 STATUS: MANOLO REQ #: [id number] REGAN: 01/02/19 08:[address]: Irma Grider DEPT: Surgical Specimen RECD BY: Tory Keene ENTERED: 01/02/19 12:36 SP TYPE: GB OTHR DR: Kaylie Whipple Tissues: 1 - GALLBLADDER Procedures: GROSS AND MICRO LEVEL 3 Comments: [id number]
[2019-01-02] MEDS: LORazepam 2 MG/ML VIAL 0.5 MG IVP ×2 (08:45→08:55)
--- NOTE | 2019-01-02 09:13 | PDOC.DSDIS_ITS ---
Discharge Plan Disposition Patient Disposition: HOME Condition: Good Discharge Details Reason For Visit: Laparoscopic cholecystectomy Attending Provider: Irma Grider Primary Care Provider: Kaylie Whipple Home Meds and New Rx's Prescriptions: Continued oxycodone 5 mg tablet 5 mg PO Q6H MDD 4 tablets PRN (Reason: pain) Qty: 30 RF: 0 gabapentin 300 mg capsule 900 mg PO TID RF: 0 duloxetine [Cymbalta] 30 mg Capsule,Delayed Release(Dr/Ec) 90 mg PO DAILY RF: 0 pantoprazole [Protonix] 40 mg Tablet,Delayed Release (Dr/Ec) 40 mg PO DAILY RF: 0 ondansetron HCl 4 mg tablet 4 mg PO Q8H PRN (Reason: nausea and vomiting) Qty: 7 RF: 0 Discharge Instructions Additional Instructions: Okay to shower tomorrow - remove Bandaids and allow water to run over steri strips Call for fever, worsening pain, incision concerns Stand Alone Forms: Anes.Nerve Block Instructions, DSU Post op Instructions, Lili Hernandez (DSU) Referrals: Irma Grider MD [ [facility] STAFF PHYSICIAN] - (Return in 10-14 days) Activity:: DO not lift more than 15 pounds for two weeks Remove Dressings/Wound Care:: 24 hours Shower/Bathe:: 24 hours Diet:: Low fat for two weeks Discharge Orders Discharge Orders: Discharge Order (Routine); Ordered 01/02/19 Ordered By: Irma Grider DS: Diagnosis Discharge Diagnosis (1) Cholelithiasis: Status: Acute (2) S/P laparoscopic cholecystectomy:
[2019-01-02] MEDS: HYDROmorphone 2 MG/ML VIAL IVP ×5 (09:45→10:45)
[2019-01-02] MEDS: HYDROcodone 5/Acetaminophen 325 TAB PO (11:01)
--- NOTE | 2019-01-02 14:50 | ROE_ITS ---
DATE OF PROCEDURE: January 02, 2019 PREOPERATIVE DIAGNOSIS: Symptomatic cholelithiasis. POSTOPERATIVE DIAGNOSIS: Same. PROCEDURE: Laparoscopic cholecystectomy. SURGEON: Irma Grider M.D. ANESTHESIA: Local and General. INDICATIONS: This is a 33-year-old man who reports fairly constant significant right upper quadrant pain as well as nausea. Evaluation revealed gallstones without gallbladder wall thickening. His LFT's are normal. The patient does have a history of stage 2 cirrhosis. PROCEDURE: He was placed supine on the operating table and under general anesthetic was prepped and draped sterilely. A 5 mm incision was made just to left and above his umbilicus after injecting local anesthetic. The abdomen was entered under direct visualization with a 5 mm scope and a C02 pneumoperitoneum was begun. He was placed in reverse Trendelenburg position. The epigastric and two lateral ports were placed after injecting local anesthetic under direct visualization. The liver did not appear grossly fibrotic. The gallbladder itself was not acutely inflamed. The fundus was pulled up over the liver and the infundibulum retracted laterally. The peritoneum overlying the triangle of Calot is dissected free with hook cautery to reveal the cystic artery. This was visualized going directly onto the gallbladder. This was clipped twice distally, once proximally and divided. The cystic duct was isolated and visualized going directly onto the gallbladder. It was not dilated. Palpation revealed no stones within it. This was clipped twice distally and once proximally and divided. I also did visualize the common bile duct and avoided this. The gallbladder was then dissected off the liver bed with hook cautery. There was a small posterior vascular branch that was clipped. The gallbladder was dissected without difficulty off of the liver bed and removed through the epigastric incision in an EndoCatch bag. Inspection of the operative site revealed no bleeding or bile leak. The C02 was released and the ports removed. The skin of all port sites was closed with a #4-0 Monocryl subcuticular stitch. He tolerated the procedure well and was stable to recovery. cc: Isauro CokerP.
== END 2019-01-02 12:35 | disposition home or self-care (01) ==
PROVIDERS: PCP Nurse Practitioner Family; Visit Provider Surgery
PROC: 0FT44ZZ Resection of Gallbladder, Percutaneous Endoscopic Approach (ICD-10-PCS; CPT 47562; principal; 2019-01-02 07:30)
DX: K80.10 Calculus of gallbladder with chronic cholecystitis without obstruction (principal); I10 Essential (primary) hypertension; K21.9 Gastro-esophageal reflux disease without esophagitis; G47.33 Obstructive sleep apnea (adult) (pediatric); F17.210 Nicotine dependence, cigarettes, uncomplicated; F10.10 Alcohol abuse, uncomplicated
CPT/HCPCS: 47562; 88304; J0690; J1100; J1885; J2060; J2250; J2405

== ENCOUNTER 2019-01-06 17:05 | Emergency (ER) | payer MEDICAID, SELFPAY ==
--- NOTE | 2019-01-06 17:13 | NUR.NOTE ---
Nursing Note: on Saturday pt had laparoscopic removal of his gallbladder by Cheo. today PT was bending over in the garden 1500 when he developed 10/10 pain since then PT has had continuos pain. PT called day surgery who told him t go the the ER
[2019-01-06 17:16] VITALS: BP 157/79; PULSE 103; RESP 15; TEMP 37.1; O2SAT 97
--- NOTE | 2019-01-06 17:27 | DI.CT_ITS ---
SYMPTOMS/DIAGNOSIS: RIGHT UPPER QUADRANT PAIN, S/P CHOLECYSTECTOMY 01/02/19 CT OF THE ABDOMEN AND PELVIS: Comparison is made with May,. The liver is again noted to be enlarged. There is mild fatty infiltration. The spleen is also enlarged. The patient is status post cholecystectomy. There is no biliary dilatation or subcapsular fluid. The pancreas, kidneys and adrenals are unremarkable. Numerous diverticula are seen throughout the colon. There is no inflammatory change. The bladder and prostate are unremarkable. IMPRESSION: Status post cholecystectomy. No acute abnormality. Hepatosplenomegaly is again noted.
[2019-01-06] MEDS: HYDROmorphone 2 MG/ML VIAL 1 MG IVP (17:30)
[2019-01-06] MEDS: Normal Saline 1,000 ML 1000 ML IV (17:30)
--- NOTE | 2019-01-06 17:34 | W.ED.GENAD ---
Discharge Plan Disposition Patient Disposition: HOME Condition: Stable Discharge Details Chief Complaint: Abd Prob Clinical Impression: Abdominal pain Primary Care Provider: Kaylie Whipple ED Provider: Higinio Rawls Home Meds and New Rx's Prescriptions: No Action oxycodone 5 mg tablet 5 mg PO Q4H PRN MDD 8 tablets PRN (Reason: pain) Qty: 30 RF: 0 gabapentin 300 mg capsule 900 mg PO TID RF: 0 duloxetine [Cymbalta] 30 mg Capsule,Delayed Release(Dr/Ec) 90 mg PO DAILY RF: 0 pantoprazole [Protonix] 40 mg Tablet,Delayed Release (Dr/Ec) 40 mg PO DAILY RF: 0 ondansetron HCl 4 mg tablet 4 mg PO Q8H PRN (Reason: nausea and vomiting) Qty: 7 RF: 0 Discharge Data Discharge Date/Time-TO BE ENTERED AT DEPARTURE: 01/06/19 20:07 Medical Decision Making 33 yo male who underwent lap hannah for cholelithiasis last Saturday who comes in with chief complaint of acute onset increased pain in the upper abdomen after bending over tonight. No vomit or fevesr and had been doing well from surgery until this tarted. Has ruq and epigastric pain on exam with well healing wounds no erythema or discharge. Given his degree of pain will obtian ct imaging and also lab work and monitor pt's results came back during down time, labs showed no significant acute abnormalities and ct showed splenomegaly otherwise unremarkableexam and pain improved and had minimal epigastric pain. HE was advised to f/u with his surgeon and return if worsening Differential Diagnosis muscle spasm, hematoma, pneumoperitoneum Medical Records Medical records reviewed: Yes I reviewed the patient's medical records. Imaging Data Radiologic Study: Attestation: I personally reviewed and interpreted this imaging study as follows: Imaging: CT Scan Radiologist's impression: vrad report reviewed Lab Data Lab results reviewed: Yes I reviewed the patient's lab results. HPI General Mode of arrival: ambulatory. Date/Time Provider Initiated Documentation: 01/06/19 17:23. Limitations to Documentation: no limitations. Information obtained by: patient. History of Present Illness 33 year old M presents to the emergency department with the chief complaint of abdominal pain, described as moderate and severe, and is localized to the abdomen. and it has been constant. No relieving factors improve symptom(s), No exacerbating factors reported . Patient did receive the following treatments prior to arrival, none Related Data Home Medications Medication Instructions Recorded Confirmed gabapentin 300 mg capsule 900 mg PO TID cap 04/11/18 01/02/19 duloxetine [Cymbalta] 90 mg PO DAILY 10/12/18 01/02/19 ondansetron HCl 4 mg PO Q8H PRN #7 tab 12/26/18 01/02/19 pantoprazole [Protonix] 40 mg PO DAILY 12/26/18 01/02/19 oxycodone 5 mg tablet 5 mg PO Q4H PRN PRN #30 tab MDD 8 01/02/19 tablets Previous Rx's Medication Instructions Recorded ondansetron HCl 4 mg PO Q8H PRN #7 tab 12/26/18 oxycodone 5 mg tablet 5 mg PO Q4H PRN PRN #30 tab MDD 8 01/02/19 tablets Allergies Allergy/AdvReac Type Severity Reaction Status Date / Time tramadol Allergy Intermediate hives Verified 01/02/19 06:35 General Stated Complaint: Abd Prob FALGUNI: 3 Review of Systems Review of Systems All systems reviewed & are unremarkable except as noted in HPI and below Constitutional Denies chills, Denies fever(s) and Denies weakness Cardiovascular Denies chest pain and Denies dyspnea Respiratory Denies dyspnea Gastrointestinal Denies vomiting Musculoskeletal Denies joint swelling Neurologic Denies weakness [facility] Medical History (Updated 01/02/19 @ 06:31 by Murtaza Mccullough) Abdominal pain, right upper quadrant (Acute) Alcohol abuse (Chronic) Chronic low back pain (Chronic) Cigarette nicotine dependence (Chronic) Cirrhosis (Acute) Crohns disease (Chronic) Depression with anxiety (Chronic) Fistula (Acute) Generalized anxiety disorder (Chronic) GERD (gastroesophageal reflux disease) (Chronic) HTN (hypertension) (Chronic) Hyperlipidemia (Chronic) Left sided sciatica (Chronic) Morbid obesity (Chronic) Nasal lesion (Acute) DARREL (obstructive sleep apnea) (Chronic) Paresthesia (Chronic) Rheumatoid arthritis with rheumatoid factor of multiple sites without organ or systems involvement (Chronic) Surgical History (Updated 01/02/19 @ 09:14 by Irma Grider MD) EGD - MAC (10/16/17) H/O: knee surgery (Acute) S/P arthroscopy of left shoulder (Acute) S/P laparoscopic cholecystectomy (Acute) Status post hip surgery (Acute) Social History Smoking/Tobacco Use Status: Current every day Tobacco Type: cigarettes Alcohol Intake: former Drug use: Daily Substance use type: marijuana Details: Hx marijuana, CBD; Pt states quit drinking May 2018 LAST MARIJUANA USE 01/01/19 Housing: apartment Number of Children: 4 current occupation: [employer] What type of physical activity do you participate in: none Do you feel safe at home: Yes Do you feel safe in your relationship?: Yes Exam Const General: no acute distress Orientation: alert HENMT Head: normal to inspection Ears: external ears normal General nose exam: external nose normal Mouth: moist mucous membranes Eyes General: appearance normal, both eyes and all related structures Neck Neck: normal visual inspection Resp Effort & Inspection: normal respiratory effort and able to speak in complete sentences Cardio Rate: regular rate GI Palpation: soft Skin General skin exam: no rashes or lesions noted Neuro General: alert and oriented x3 Extrem General: normal to inspection Psych Mental Status: mental status grossly normal Course Vital Signs Temperature 37.1 C 01/06/19 17:16 Pulse 103 H 01/06/19 17:16 Respiratory Rate 15 01/06/19 17:16 Blood Pressure 157/79 H 01/06/19 17:16 Pulse Oximetry 97 01/06/19 17:16 Temperature 37.1 C 01/06/19 17:16 Temperature Source Skin 01/06/19 17:16 Pulse 103 H 01/06/19 17:16 Respiratory Rate 15 01/06/19 17:16 Blood Pressure 157/79 H 01/06/19 17:16 Blood Pressure Position Sitting 01/06/19 17:16 Pulse Oximetry 97 01/06/19 17:16 Oxygen Delivery Method Room Air 01/06/19 17:16 Oxygen Flow Rate 0 01/06/19 17:16 Pain Level 9 01/06/19 17:16
[2019-01-06 17:54] LABS: Abs Immature Grans 0.05 k/cumm (0.0-0.09); Absolute Basophil Count 0.04 k/cumm (0.0-0.2); Absolute Eosinophil Count 0.28 k/cumm (0.0-0.7); Absolute Lymphocyte Count 2.77 k/cumm (1.2-3.4); Absolute Monocyte Count 0.61 k/cumm (0.11-0.7); Absolute Neutrophil Count 5.38 k/cumm (1.2-6.7); Basophils % 0.4; Eosinophils % 3.1; HCT 43.2 % (40.0-50.0); HGB 15.3 g/dL (13.5-17.5); Immature Grans % 0.5; Lymphocytes % 30.3; Mean Corp. HGB Concentration 35.4 g/dL (32.0-36.0); Mean Corpuscular Hemoglobin 31.4 pg (27.0-33.0); Mean Corpuscular Volume 88.7 fL (80-95); Mean Platelet Volume 10.2 fL (8.0-11.0); Monocytes % 6.7; Platelet Count 195 x1000/uL (130-400); RBC 4.87 m/cumm (4.50-6.00); RBC Distribution Width 14.1 % (11.8-14.1); White Blood Cell Count 9.13 k/cumm (4.4-10.8)
[2019-01-06 18:37] LABS: Albumin 4.2 g/dL (3.4-5.0); BUN 12 mg/dL (7-18); CREATININE 1.07 mg/dL (0.70-1.30); Glucose 112 mg/dL (70-100); Total Protein 7.8 g/dL (6.4-8.2)
[2019-01-06 18:38] LABS: ALT 50 U/L (12-78); AST 17 U/L (15-37); Alkaline Phosphatase 69 U/L (46-116); Anion Gap 11.9 mmol/L (3-11); Bilirubin, Total 0.4 mg/dL (0.2-1.0); CO2 25.1 mmol/L (21.0-32.0); Chloride 103 mmol/L (98-107); Potassium 3.8 mmol/L (3.5-5.1); Sodium 140 mmol/L (136-145)
[2019-01-06 18:39] LABS: Lipase 78 U/L (73-393)
[2019-01-06 18:55] LABS: Prothrombin Time 9.9 sec (9.3-11.0)
[2019-01-06 18:56] LABS: PTT Activated 24.5 sec (21.0-31.4)
--- NOTE | 2019-01-06 18:57 | DI.VRAD_ITS ---
EXAM: CT Abdomen and Pelvis With Contrast EXAM DATE/TIME: 01/06/2019 5:28 PM CLINICAL HISTORY: 33 years old, male; Other: S/P cholecystectomy, ruq pain; Prior surgery; Surgery type: Gallbladder removed 01/02/19 TECHNIQUE: Imaging protocol: Axial computed tomography images of the abdomen and pelvis with intravenous contrast. Coronal and sagittal reformatted images were created and reviewed. Radiation optimization: All CT scans at this facility use at least one of these dose optimization techniques: automated exposure control; mA and/or kV adjustment per patient size (includes targeted exams where dose is matched to clinical indication); or iterative reconstruction. Contrast material: OMNIPAQUE 350;Contrast volume: 100 ml;Contrast route: IV; COMPARISON: CT CHEST/ABD/PEL W 07/10/2018 7:47 AM FINDINGS: Liver: Normal. No mass. Gallbladder and bile ducts: Interval cholecystectomy since the previous exam. Pancreas: Normal. No ductal dilation. Spleen: Increased 15.4 cm moderate splenomegaly. Previously this measured 14.3 cm. Adrenals: Normal. No mass. Kidneys and ureters: Normal. No hydronephrosis. Stomach and bowel: Moderate diverticulosis. Appendix: Normal appendix. Intraperitoneal space: Normal. No free air. No significant fluid collection. Vasculature: 17 mm portal vein suggesting portal hypertension. One or more calcified pelvic phleboliths. Lymph nodes: Normal. No enlarged lymph nodes. Bladder: Unremarkable as visualized. Reproductive: Unremarkable as visualized. Bones/joints: No acute fracture. No dislocation. Soft tissues: Unremarkable. IMPRESSION: 1. Increased 15.4 cm moderate splenomegaly. Previously this measured 14.3 cm. 2. 17 mm portal vein suggesting portal hypertension. 3. Interval cholecystectomy since the previous exam. Dictated and Authenticated by: Higinio Miles MD. Ordering:MARGARITA Sylvester MD
[2019-01-06] MEDS: Omnipaque 350 MG/ML 100 ML BTL IJ (19:05)
== END 2019-01-06 20:07 | disposition home or self-care (01) ==
PROVIDERS: Emergency Provider Emergency Medicine; PCP Nurse Practitioner Family
DX: R10.13 Epigastric pain (principal); R10.11 Right upper quadrant pain; G89.18 Other acute postprocedural pain; I10 Essential (primary) hypertension
CPT/HCPCS: 36415; 80053; 83690; 96361; 96374; 99285; 74177; 85025; 85610; 85730; J3490

== ENCOUNTER 2019-01-19 10:04 | Outpatient (CLI) | payer MEDICAID, SELFPAY ==
--- NOTE | 2019-01-19 09:33 | DI.RAD_ITS ---
SYMPTOM/DIAGNOSIS: LEFT SHOULDER PAIN, H/O SURGRY AND TRAUMA. LEFT SHOULDER: Comparison is made with 02 December 2018. The patient is again noted to be status post resection of the distal clavicle. Bony densities are seen adjacent to the distal clavicle. The humeral head appears normally positioned. There is mild spurring at the inferior glenoid. IMPRESSION: Post surgical changes of the distal clavicle.
--- NOTE | 2019-01-19 09:33 | DI.COMBO_ITS ---
SYMPTOM/DIAGNOSIS: RT HIP PAIN, R/O LEFT HIP SCOPE, LEFT HIP PAIN PELVIS AND BILATERAL HIPS: There is mild bilateral hip joint space narrowing. There is acetabular spurring bilaterally. There is an ossification at the left superior acetabulum. There is some spurring at the lateral border of the left femoral head. There is a mild thickening of the lateral border of the right femoral head. Findings could indicate cam impingement bilaterally. There are mild degenerative changes of the S-I joints inferiorly.
--- NOTE | 2019-01-19 09:34 | DI.RAD_ITS ---
SYMPTOM/DIAGNOSIS: RIGHT KNEE PAIN RIGHT KNEE: Joint spaces appear well maintained. There is mild periarticular spurring, No joint effusion is seen. IMPRESSION: Mild degenerative changes.
--- NOTE | 2019-01-19 09:34 | DI.RAD_ITS ---
SYMPTOM/DIAGNOSIS: LEFT KNEE PAIN, H/O QUAD REPAIR LEFT KNEE: There is a small exostosis from the proximal metaphysis of the tibia medially. There may be slight medial femoral tibial joint space narrowing. There is minimal periarticular spurring. No joint effusion is seen. IMPRESSION: Mild degenerative changes.
== END 2019-01-19 10:24 ==
PROVIDERS: PCP Nurse Practitioner Family; Visit Provider Student in an Organized Health Care Education/Training Program
DX: M25.512 Pain in left shoulder (principal); Z98.890 Other specified postprocedural states; M25.561 Pain in right knee; M25.562 Pain in left knee; M17.0 Bilateral primary osteoarthritis of knee; M25.551 Pain in right hip; M25.552 Pain in left hip; M16.0 Bilateral primary osteoarthritis of hip; M53.3 Sacrococcygeal disorders, not elsewhere classified
CPT/HCPCS: 73562; 73030; 73502

== ENCOUNTER 2019-02-02 00:36 | Outpatient (CLI) | payer MEDICAID, SELFPAY ==
--- NOTE | 2019-02-02 08:52 | DI.MRI_ITS ---
SYMPTOM/DIAGNOSIS: BILAT AIDAN, / LABRAL TEAR, LT HIP DISORDER M25.852, RT HIP DISORDER M25.851 BILATERAL HIP MRI: 02/02/19 MRI examination of the hips was performed according to the usual protocol. This was a noncontrast study. No bony signal abnormality seen. No pelvic mass or adenopathy. No significant soft tissue signal abnormality in the region of the hips bilaterally. There is a rounded accessory ossicle or old injury of the lateral superior acetabulum on the left as noted on previous plain films. This is associated with labral discontinuity, developmental defect vs post traumatic finding. No gross labral abnormality identified on the right by noncontrast criteria. CONCLUSION: Labral deformity at left superior lateral acetabulum associated with old rounded ossicle at this site, developmental variant vs old post traumatic finding. Otherwise labrum appears intact bilaterally by noncontrast criteria. Additional evaluation with MR arthrogram may be considered.
== END 2019-02-02 00:56 ==
PROVIDERS: PCP Nurse Practitioner Family; Visit Provider Student in an Organized Health Care Education/Training Program
DX: M25.851 Other specified joint disorders, right hip (principal); M25.852 Other specified joint disorders, left hip
CPT/HCPCS: 73721

== ENCOUNTER 2019-02-10 16:37 | Outpatient (REF) | payer MEDICAID, SELFPAY ==
[2019-02-12 11:04] LABS: Lyme Ab w Rflx to Lyme Confirm Negative
== END 2019-02-10 16:57 ==
LOC: NCHCN 16:37
PROVIDERS: PCP Nurse Practitioner Family; Visit Provider Nurse Practitioner Family
DX: E78.5 Hyperlipidemia, unspecified (principal); I10 Essential (primary) hypertension; G89.29 Other chronic pain
CPT/HCPCS: 86618

== ENCOUNTER 2019-03-03 10:36 | Emergency (ER) | payer MEDICAID, SELFPAY ==
[2019-03-03 10:38] VITALS: BP 138/100; PULSE 77; RESP 20; TEMP 36.6; O2SAT 96
--- NOTE | 2019-03-03 11:30 | W.ED.GENAD ---
Discharge Plan Disposition Patient Disposition: HOME Discharge Details Chief Complaint: Abd Prob Clinical Impression: Abdominal pain Primary Care Provider: Kaylie Whipple ED Provider: Geo Rea Home Meds and New Rx's Prescriptions: Continued atorvastatin 20 mg Tablet 20 mg PO DAILY RF: 0 propranolol 10 mg Tablet 10 mg PO BID RF: 0 gabapentin 300 mg capsule 900 mg PO TID RF: 0 duloxetine [Cymbalta] 30 mg Capsule,Delayed Release(Dr/Ec) 90 mg PO DAILY RF: 0 pantoprazole [Protonix] 40 mg Tablet,Delayed Release (Dr/Ec) 40 mg PO DAILY RF: 0 Discharge Instructions Instructions: Abdominal Pain (ED) Additional Instructions: Please contact your primary care physician to arrange follow-up. Call today. Return to the ER for any worsening or new concerning symptoms. Referrals: Kaylie Whipple [Primary Care Provider] - Medical Decision Making 33-year-old male here with abdominal pain for the past few weeks, completed course of antibiotics for diverticulitis and symptoms persisted. Patient is hemodynamically stable. He does have tenderness in his left upper quadrant. Outside hospital records were obtained from [facility] ED visit 02/16/2019. Patient had CT of the abdomen pelvis revealing acute uncomplicated colonic diverticulosis involving the splenic flexure. Screening ECG was performed today by nursing and reviewed and interpreted by me: Sinus rhythm 67 bpm, normal axis, nondiagnostic. ECG was ordered as patient had complained of some epigastric discomfort. He does not have chest pain. Patient was given Pepcid IV, Zofran IV, Tylenol IV, IV fluids. Labs were reviewed and nondiagnostic. Normal LFTs. Normal lipase. No leukocytosis. CT of the abdomen pelvis was interpreted by radiology: FINDINGS: The lung bases are clear. The patient is status post cholecystectomy. The liver is mildly enlarged and shows fatty infiltration. The spleen is within normal limits in size. The adrenals, pancreas and kidneys are unremarkable. The appendix appears normal. There is no bowel dilatation or inflammatory change. Diverticulosis is noted in the lower descending and sigmoid colon. There is some wall thickening in the sigmoid with no surrounding inflammatory changes. The findings likely represent muscular hypertrophy. There is no free air, free fluid or abscess. The bladder and prostate are unremarkable. The aorta is normal in diameter. IMPRESSION: Diverticulosis without evidence of diverticulitis. No acute abnormality. All results were discussed with the patient. Patient remained stable here in the emergency department appeared quite comfortable on reassessment. Patient was instructed to follow-up with his primary care physician and to return to activity worsening or new concerning symptoms. Medical Records Medical records reviewed: Yes I reviewed the patient's medical records. Lab Data Lab results reviewed: Yes I reviewed the patient's lab results. HPI General Mode of arrival: ambulatory. Date/Time Provider Initiated Documentation: 03/03/19 10:55. Limitations to Documentation: no limitations. Information obtained by: patient. HPI Narrative: 33-year-old male presents from primary care office with chief complaint of abdominal pain. Patient notes he has had abdominal pain for the past few weeks. He was seen at [facility] about 2 weeks ago for abdominal pain and had CT of his abdomen pelvis that noted diverticulitis. He was started on antibiotics and completed a full course of Cipro and Flagyl. He notes he was feeling better for a couple days but is since had return of abdominal pain over the past week. Abdominal pain is moderate. No modifiers. He has associated constipation and some intermittent chills. Patient sent by PCP with concern for worsening diverticuliti.s Related Data Home Medications Medication Instructions Recorded Confirmed gabapentin 300 mg capsule 900 mg PO TID cap 04/11/18 03/03/19 duloxetine [Cymbalta] 90 mg PO DAILY 10/12/18 03/03/19 pantoprazole [Protonix] 40 mg PO DAILY 12/26/18 03/03/19 atorvastatin 20 mg PO DAILY 03/03/19 03/03/19 propranolol 10 mg PO BID 03/03/19 03/03/19 Allergies Allergy/AdvReac Type Severity Reaction Status Date / Time tramadol Allergy Intermediate hives Verified 03/03/19 10:42 General Stated Complaint: Abd Prob FALGUNI: 3 Review of Systems Review of Systems ROS Unobtainable: All systems reviewed & are unremarkable except as noted in HPI and below Constitutional Constitutional: Reports as per HPI Gastrointestinal Gastrointestinal: Reports abdominal pain, Reports nausea and Reports vomiting [facility] Medical History Abdominal pain, right upper quadrant (Acute) Alcohol abuse (Chronic) Chronic low back pain (Chronic) Cigarette nicotine dependence (Chronic) Cirrhosis (Acute) Crohns disease (Chronic) Depression with anxiety (Chronic) Fistula (Acute) PT. IS UNSURE IF HE HAS THIS OR NOT Generalized anxiety disorder (Chronic) GERD (gastroesophageal reflux disease) (Chronic) HTN (hypertension) (Chronic) Hyperlipidemia (Chronic) Left sided sciatica (Chronic) Morbid obesity (Chronic) Nasal lesion (Acute) DARREL (obstructive sleep apnea) (Chronic) USES CPAP Paresthesia (Chronic) Rheumatoid arthritis with rheumatoid factor of multiple sites without organ or systems involvement (Chronic) Surgical History EGD - [facility] (10/16/17) H/O: knee surgery (Acute) LEFT S/P arthroscopy of left shoulder (Acute) PT. STATES BROKEN CLAVICLE WAS FIXED S/P laparoscopic cholecystectomy (Acute) 01/02/19, Dr Irma Grider, [facility] Status post hip surgery (Acute) Social History Smoking/Tobacco Use Status: Current every day Tobacco Type: cigarettes Alcohol Intake: former Drug use: Daily Substance use type: marijuana Details: Hx marijuana, CBD; Pt states quit drinking May 2018 LAST MARIJUANA USE 01/01/19 Housing: apartment Number of Children: 4 current occupation: [employer] What type of physical activity do you participate in: none Do you feel safe at home: Yes Do you feel safe in your relationship?: Yes Exam Const General: cooperative and no acute distress HENMT Head: normocephalic Mouth: moist mucous membranes Eyes Conjunctivae: normal conjunctivae Sclera: normal sclerae Neck Neck: trachea midline and supple Resp Auscultation: clear to auscultation bilaterally, no rales, no rhonchi and no wheezes Cardio Jugular venous pressure: no JVD Rate: regular rate and not tachycardic Rhythm: regular rhythm GI Palpation: soft, not firm, no guarding, no masses, not rigid and tender in the LUQ Auscultation: normal bowel sounds Skin General skin exam: no rashes or lesions noted Neuro General: alert, awake, oriented x3 and tone normal Extrem General: no edema Psych Appearance: grossly normal Mental Status: mental status grossly normal Course Vital Signs Vital signs: Vital Signs Temperature 36.6 C 03/03/19 10:38 Pulse 77 03/03/19 10:38 Respiratory Rate 20 03/03/19 10:38 Blood Pressure 138/100 H 03/03/19 10:38 Pulse Oximetry 96 03/03/19 10:38 Temperature 36.6 C 03/03/19 10:38 Temperature Source Skin 03/03/19 10:38 Pulse 77 03/03/19 10:38 Respiratory Rate 20 03/03/19 10:38 Respiratory Effort 03/03/19 10:44 Blood Pressure 138/100 H 03/03/19 10:38 Blood Pressure Position Sitting 03/03/19 10:38 Pulse Oximetry 96 03/03/19 10:38 Oxygen Delivery Method Room Air 03/03/19 10:38 Oxygen Flow Rate 0 03/03/19 10:38 Pain Level 8 03/03/19 10:38
[2019-03-03] MEDS: FAMOTIDINE 20 MG/50 ML BAG 200 MG IVPB (11:37)
[2019-03-03] MEDS: Ondansetron 4 MG/2 ML VIAL IVP (11:37)
[2019-03-03] MEDS: Normal Saline 1,000 ML 1000 ML IV (11:37)
[2019-03-03 11:42] LABS: Abs Immature Grans 0.03 k/cumm (0.0-0.09); Absolute Basophil Count 0.05 k/cumm (0.0-0.2); Absolute Eosinophil Count 0.39 k/cumm (0.0-0.7); Absolute Lymphocyte Count 3.18 k/cumm (1.2-3.4); Absolute Monocyte Count 0.57 k/cumm (0.11-0.7); Absolute Neutrophil Count 3.16 k/cumm (1.2-6.7); Basophils % 0.7; Eosinophils % 5.3; HCT 47.5 % (40.0-50.0); HGB 16.4 g/dL (13.5-17.5); Immature Grans % 0.4; Lymphocytes % 43.1; Mean Corp. HGB Concentration 34.5 g/dL (32.0-36.0); Mean Corpuscular Hemoglobin 31.5 pg (27.0-33.0); Mean Corpuscular Volume 91.2 fL (80-95); Mean Platelet Volume 10.4 fL (8.0-11.0); Monocytes % 7.7; Neutrophils % 42.8; Platelet Count 221 x1000/uL (130-400); RBC 5.21 m/cumm (4.50-6.00); RBC Distribution Width 13.1 % (11.8-14.1); White Blood Cell Count 7.38 k/cumm (4.4-10.8)
[2019-03-03] MEDS: ACETAMINOPHEN 1,000 MG/100 ML BTL 400 MG IVPB (11:45)
[2019-03-03 12:01] LABS: ALT 56 U/L (16-63); AST 30 U/L (15-37); Albumin 4.2 g/dL (3.4-5.0); Alkaline Phosphatase 79 U/L (46-116); Anion Gap 10.4 mmol/L (3-11); BUN 15 mg/dL (7-18); Bilirubin, Total 0.4 mg/dL (0.2-1.0); CO2 27.6 mmol/L (21.0-32.0); Calcium 9.3 mg/dL (8.5-10.1); Chloride 103 mmol/L (98-107); Glucose 83 mg/dL (70-100); Lipase 208 U/L (73-393); Potassium 4.1 mmol/L (3.5-5.1); Sodium 141 mmol/L (136-145); Total Protein 8.3 g/dL (6.4-8.2)
[2019-03-03 12:07] LABS: Troponin I < 0.05 ng/mL (0.00-0.06)
[2019-03-03 12:11] LABS: Lactate 1.1 mmol/L (0.6-1.4)
[2019-03-03] MEDS: Omnipaque 350 MG/ML 100 ML BTL IJ (12:17)
[2019-03-03] MEDS: Normal Saline Flush 10 ML SYR IVP (12:17)
--- NOTE | 2019-03-03 12:30 | DI.CT_ITS ---
EXAM: CT ABDOMEN AND PELVIS W CLINICAL HISTORY: abd pain LUQ. TECHNIQUE: Noncontrast COMPARISON: CT ABDOMEN AND PELVIS W from 01/06/2019 FINDINGS: The lung bases are clear. The patient is status post cholecystectomy. The liver is mildly enlarged and shows fatty infiltration. The spleen is within normal limits in size. The adrenals, pancreas an d kidneys are unremarkable. The appendix appears normal. There is no bowel dilatation or inflammator y change. Diverticulosis is noted in the lower descending and sigmoid colon. There is some wall thi ckening in the sigmoid with no surrounding inflammatory changes. The findings likely represent muscul ar hypertrophy. There is no free air, free fluid or abscess. The bladder and prostate are unremarka ble. The aorta is normal in diameter. IMPRESSION: Diverticulosis without evidence of diverticulitis. No acute abnormality.
[2019-03-03 14:20] VITALS: BP 121/65; PULSE 82; RESP 16; O2SAT 99
--- NOTE | 2019-03-03 14:30 | NUR.NOTE ---
Nursing Note: pt resting in stretcher. no signs of distress. facial expression and body language relaxed. slow and even respirations noted.
[2019-03-03 15:04] VITALS: BP 127/69; PULSE 69; RESP 16; O2SAT 99
== END 2019-03-03 15:00 | disposition home or self-care (01) ==
PROVIDERS: Emergency Provider Student in an Organized Health Care Education/Training Program; PCP Nurse Practitioner Family
DX: R10.9 Unspecified abdominal pain (principal)
CPT/HCPCS: 36415; 80053; 83690; 93005; 96361; 96365; 96375; 96376; 99285; 74177; 83605; 83735; 84484; 85025; 93010; J0131; J2405; J3490

== ENCOUNTER 2019-03-03 13:26 | Outpatient (REF) | payer MEDICAID, SELFPAY ==
[2019-03-03 21:35] LABS: Abs Immature Grans 0.02 k/cumm (0.0-0.09); Absolute Basophil Count 0.03 k/cumm (0.0-0.2); Absolute Eosinophil Count 0.39 k/cumm (0.0-0.7); Absolute Lymphocyte Count 2.57 k/cumm (1.2-3.4); Absolute Monocyte Count 0.66 k/cumm (0.11-0.7); Absolute Neutrophil Count 3.17 k/cumm (1.2-6.7); Basophils % 0.4; Eosinophils % 5.7; HCT 46.1 % (40.0-50.0); HGB 15.7 g/dL (13.5-17.5); Immature Grans % 0.3; Lymphocytes % 37.6; Mean Corp. HGB Concentration 34.1 g/dL (32.0-36.0); Mean Corpuscular Hemoglobin 31.3 pg (27.0-33.0); Monocytes % 9.6; Neutrophils % 46.4; Platelet Count 231 x1000/uL (130-400); RBC 5.01 m/cumm (4.50-6.00); RBC Distribution Width 13.3 % (11.8-14.1); White Blood Cell Count 6.84 k/cumm (4.4-10.8)
== END 2019-03-03 13:46 ==
LOC: NCHCN 13:26
PROVIDERS: PCP Nurse Practitioner Family; Visit Provider Nurse Practitioner Family
DX: K57.92 Diverticulitis of intestine, part unspecified, without perforation or abscess without bleeding (principal)
CPT/HCPCS: 85025

== ENCOUNTER 2019-05-01 07:36 | Day surgery (SDC) | payer MEDICAID, SELFPAY ==
[2019-05-01 07:49] VITALS: BP 122/69; PULSE 76; RESP 16; TEMP 36.7; O2SAT 98
[2019-05-01] MEDS: Lactated Ringers 1,000 ML 80 ML IV (08:06)
--- NOTE | 2019-05-01 08:10 | W.PM.DSUDISC ---
Discharge Plan Disposition Patient Disposition: HOME Condition: Good Discharge Details Reason For Visit: DYSPHAGIA Attending Provider: Irma Grider Primary Care Provider: Kaylie Whipple Home Meds and New Rx's Prescriptions: Continued atorvastatin 20 mg Tablet 20 mg PO DAILY RF: 0 propranolol 10 mg Tablet 10 mg PO BID RF: 0 pantoprazole [Protonix] 40 mg Tablet,Delayed Release (Dr/Ec) 40 mg PO DAILY RF: 0 No Action sucralfate [Carafate] 100 mg/mL suspension 10 ml PO QACHS Qty: 420 RF: 2 Protonix [address] for susp in packet 40 mg PO BID Qty: 60 RF: 2 Discharge Instructions Additional Instructions: Start the Carafate and increase your PPI to twice a day. Contact my office if your symptoms have not improved in one month. Activity:: Activity as Tolerated Diet:: As Tolerated Discharge Orders Discharge Orders: Discharge Order (Routine); Ordered 05/01/19 Ordered By: Irma Grider
--- NOTE | 2019-05-01 11:04 | PGE_ITS ---
Date of Service Date of service: 05/01/19 Time of Service: 09:00 Assessment and Plan Assessment and plan (1) Dysphagia: Status: Acute Assessment and plan: The patient presented today for an EGD. Upon review of his [facility] chart by anesthesia, it was noted the patient had an EGD in 07/2018 that he did not mention at his visit yesterday. The EGD showed no evidence of Barretts, esophagitis or esophageal stricture. He is also noted to have a difficult airway and has required intubation for an EGD in the past. Today he would need to be intubated for the procedure. We discussed the pros and cons of repeating an EGD. It is unlikely the procedure would management lecturer today presuming his issue is from esophagitis. It is very unlikely that a stricture or other issue has developed in the last few months. I advise optimizing medical therapy by increasing his PPI to twice a day and adding Carafate first. The benefit of proceeding with the EGD does not outweigh the risk of anesthesia today. If he is still having symptoms after taking the medication for one month, he was advised to contact me. Qualifiers: Dysphagia type: other dysphagia Qualified Code(s): R13.19 - Other dysphagia Objective Objective Clinical Data: Vital Signs Temperature 98.1 F 05/01/19 07:49 Pulse 76 05/01/19 07:49 Pulse Rhythm Regular 05/01/19 07:49 Respiratory Rate 16 05/01/19 07:49 Respiratory Depth Normal 05/01/19 07:49 Blood Pressure 122/69 05/01/19 07:49 Pulse Oximetry 98 05/01/19 07:49 Oxygen Delivery Method Room Air 05/01/19 07:49 Oxygen Flow Rate 0 05/01/19 07:49 Intake & Output 04/30/19 04/30/19 05/01/19 11:59 23:59 11:59 Weight 293 lb 3.437 oz
--- NOTE | 2019-05-01 11:09 | NUR.NOTE ---
Egd cancelled. Discharge instruction were to follow up with Dr. Grider after using medications. IV removed. Pt dressed and ambulated from DSU. ursing Note:
== END 2019-05-01 09:40 | disposition home or self-care (01) ==
PROVIDERS: PCP Nurse Practitioner Family; Visit Provider Surgery
DX: R13.19 Other dysphagia (principal); Z53.09 Procedure and treatment not carried out because of other contraindication
CPT/HCPCS: NC; 99211